=== PATIENT | female | born 1980 | race Caucasian/White ===

== ENCOUNTER 2024-02-02 09:46 | Inpatient (IN) | payer SELFPAY ==
[2024-02-02] VITALS (94 sets, daily range): BP systolic 91–162; BP diastolic 55–83; PULSE 57–144; RESP 12–20; TEMP 36.6–37.3; O2SAT 79–100; BMI 21.9
--- NOTE | 2024-02-02 10:15 | PC.PHAR ---
Pt states Dicyclomine 20 mg is on hold right now, left Gabapentin 300mg at home, takes Thyroid 15mg+90mg nl=801ib total, and is on Suboxone 8-2 last fill 10/13/23.
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
[2024-02-02 11:20] LABS: Basophils % 0.4 %; Eosinophils # 0.1 10^3/uL (0.0-0.8); Eosinophils % 0.7 %; Hematocrit 40.7 % (36-47); Lymphocytes # 2.9 10^3/uL (0.8-4.8); Lymphocytes % 32.4 %; Mean Corpuscular HGB Conc 32.2 g/dL (30-55); Mean Corpuscular Hemoglobin 30.2 pg (27-33); Mean Corpuscular Volume 93.8 fl (85-98); Mean Platelet Volume 9.8 fL (7.4-10.4); Monocytes # 0.6 10^3/uL (0.2-0.9); Monocytes % 6.5 %; Neutrophils # 5.32 10^3/uL (1.8-7.7); Neutrophils % 59.8 %; Nucleated Red Blood Cells % 0 %; Platelet Count 240 10^3/cmm (157-399); Red Blood Count 4.34 10^6/uL (3.85-5.65); Red Cell Distribution Width 12.8 % (12.1-15.1)
[2024-02-02 11:39] LABS: Alanine Aminotransferase 9 U/L (0-33); Albumin Level 4.7 g/dL (3.5-5.2); Alkaline Phosphatase 47 U/L (35-105); Anion Gap 15.7 (5-19); Aspartate Amino Transferase 22 U/L (0-32); Blood Urea Nitrogen 11 mg/dL (6-20); Calcium 9.7 mg/dL (8.5-10.5); Carbon Dioxide 23 mmol/L (22-29); Chloride 99 mmol/L (98-107); Creatinine Clr Calc Pharmacy 86.4185; Globulin 2.8 g/dL (1.3-4.6); Glomerular Filtration Rate 90.5 mL/min (90-130); Glucose 103 mg/dL (65-115); Osmolality Calculated 278 mOsm/kg (285-295); Potassium 3.7 mmol/L (3.5-5.1); Sodium 134 mmol/L (136-145); Total Bilirubin 0.3 mg/dL (0.15-1.2); Total Protein 7.5 g/dL (6.6-8.7)
--- NOTE | 2024-02-02 11:42 | PC.NURSE ---
BELONGINGS INVENTORIED WITH YOHANNES RICHARD AND RUPERT INTERIANO.
[2024-02-02 11:48] LABS: Acetaminophen < 5.0 ug/mL (10-30); Salicylate < 0.3 mg/dL (3-10)
[2024-02-02 12:01] LABS: Urine Appearance Slightly Cloudy (CLEAR); Urine Color Red (Yellow)
[2024-02-02 12:02] LABS: Add Urine Microscopic? YES; UA Manual Slide Review YES; UA Slide Review UA Slide Review Perf
[2024-02-02 12:03] LABS: Amphetamines Screen Urine Negative (Negative); Barbiturates Screen Urine Negative (Negative); Benzodiazepines Screen Urine Negative (Negative); Cocaine Screen Urine Negative (Negative); Opiate Screen Urine Negative (Negative); PCP Screen Urine Negative (Negative); THC Screen Urine Positive (Negative)
--- NOTE | 2024-02-02 12:03 | PC.NURSE ---
96 hour holds read to patient. Nolan from security present during reading of rights. Patient upset that the hold is longer then 96 hours. This nurse explained the 96 hour hold process and weekends not counting due to the courts being closed. Patient is remained upset but verbalized understandings. Copy of rights given to patient.
[2024-02-02 12:07] LABS: Add Urine Culture? No; RBC Urine TOO NUMEROUS TO CNT /hpf (0-2); WBC Urine 0-4 /hpf (0-5)
[2024-02-02] MEDS: haloperidol inj 5 mg/mL INJ 1 mL IM ×2 (13:54→16:13)
[2024-02-02] MEDS: diphenhydrAMINE 50 mg/mL SDV 1mL IM (13:55)
[2024-02-02] MEDS: LORazepam 2 mg/mL INJ 1 mL IM ×2 (13:55→16:14)
--- NOTE | 2024-02-02 14:25 | PC.NURSE ---
Patient arrived to the unit from ED at 1325. Immediately, patient was agitated, yelling at LEATHA Alvarado as she attempted to explain admission paperwork. Patient making paranoid statements about the validity of the hospital paperwork. Patient demanding that staff get the fuck away from me! Patient was not willing to sign paperwork as this made her agitated. Patient was then taken to her room by IRENE Mccauley for admission assessment. Patient was yelling at Garrick, slamming the bathroom door. Patient said that Garrick is incompetent, that this hospital is the worse hospital and that she is not going to stay. Multiple staff attempted to verbally de-esculate patient, but patient continued to esculate. Security was called. After much effort from security Giovanni and Wander, IRENE Sullivan, IRENE Goetz RN and IRENE Gill it was decided to resort to chemical restraint. B52 medications were obtained. IRENE Goetz told patient about the medications she would be receiving.Patient was refusing to be given meds. Patient up and down in room with security. Security went hands on patient at 1350, holding patient on her arm joints. LEATHA Alvarado held down patient's right leg and IRENE Gill held down left leg around the joints. Patient tolerated the medications. IRENE Sullivan administered haldol and ativan into left deltoid, and Sofy BONILLA administered benadryl into right deltoid muscle. Patient made statements about the amount of shots she received. Patient thought that she received four shots. Staff informed patient that she is getting two shots because the medications cannot be mixed. Patient also made a statement about the medication appearing to be melting
[2024-02-02] MEDS: water for injection-sterile 10 ML (15:09)
[2024-02-02] MEDS: ziprasidone 20 mg/mL SDV IM (15:09)
--- NOTE | 2024-02-02 15:09 | PC.NURSE ---
Administered geodon 20mg Im to patient's right ventrogluteal. No distress. Patient tolerated well.
--- NOTE | 2024-02-02 15:20 | W.PM.BREST ---
Face to Face: Restrn/Seclusion Events leading up to initiation: Verbalizing threat to self or others, Demonstrating self-destructive behavior (cutting, hitting cortes etc.) and Combative/Striking out at staff or others Evaluation of patient's immediate situation: Signs of physical distress and Signs of psychological distress Patient reaction since intervention applied: Continued attempts/displays harmful behavior Recent labs reviewed: Yes Review of medications: Yes Patient's current medical/behavioral condition: New concerns (describe) (Unclear whether current medications and interventions will suffice to help her de-escalate. Will consider medical consult for a more controlled management of her delirious behavior.) Need for restraint or seclusion is: Continued Attending notified: Attending completed assessment
--- NOTE | 2024-02-02 15:29 | PC.NURSE ---
Patient was initially placed in seclusion. Patient was observed by staff punching the corets. Dr. Rg was notified. Dr. Rg gave order to put patient in restraints. Jenny Sullivan Taylor, Jake B., Brittanie Garcia aided patient to the restraint room without incident. Patient was placed in restraints and it was checked that two fingers width between restraints and patient skin. Patient provided with water and a cool wet wash cloth for her head. Patient continues to fight at restraints. Patient talking delusional, saying such things as I want you to put that song on me and then opened her mouth wide for placement of the song. Patient's VS checked. Dr. Rg present, security present. engraving supervisor aware. Both manager eligibility's aware and present
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
[2024-02-02] MEDS: benztropine 1 mg/mL SDV 2 mL 2 MG IM (15:57)
--- NOTE | 2024-02-02 16:14 | PC.NURSE ---
IRENE Skaggs administered ativan 2mg and haldol 5mg IM into patient's left ventrogluteal muscle. No distress observed. Patient continues to be in presence of staff.
--- NOTE | 2024-02-02 16:24 | CTR_ITS ---
PROCEDURE INFORMATION: Exam: CT Head Without And With Contrast Exam date and time: 02/02/2024 6:47 PM Age: 43 years old Clinical indication: Altered mental status/memory loss; Other: Hallucinations; Additional info: AMS, hallucination TECHNIQUE: Imaging protocol: Computed tomography of the head without and with contrast. Radiation optimization: All CT scans at this facility use at least one of these dose optimization techniques: automated exposure control; mA and/or kV adjustment per patient size (includes targeted exams where dose is matched to clinical indication); or iterative reconstruction. Contrast material: OMNI 350; Contrast volume: 100 ml; Contrast route: INTRAVENOUS (IV); COMPARISON: No relevant prior studies available. RADIATION DOSE METRICS: Total DLP (mGy-cm): 1947.96 FINDINGS: Brain: Right basal ganglia chronic lacunar infarct. Mild diffuse white matter disease likely reflecting chronic microvascular ischemic changes. Cerebral ventricles: No ventriculomegaly. Paranasal sinuses: Visualized sinuses are unremarkable. No fluid levels. Mastoid air cells: Visualized mastoid air cells are well aerated. Bones: Unremarkable. No acute fracture. Soft tissues: Unremarkable. CT/CT head wo/w con [id number] IMPRESSION: 1. Negative for intracranial hemorrhage, mass effect or abnormal contrast enhancement. 2. Right basal ganglia chronic lacunar infarct. 3. Mild diffuse white matter disease likely reflecting chronic microvascular ischemic changes.
--- NOTE | 2024-02-02 16:42 | PC.NURSE ---
Staff unable to obtain blood pressure, either with the machine or manually because patient unable to sit still.
--- NOTE | 2024-02-02 16:45 | ANES.PROC ---
Anesthesia Procedures Procedure/Date: 02/03/24 Intubation: Time Out Performed: Yes Consent: requested by attending/covering physician Sedative (amount): etomidate Paralytic (amount): succinylcholine Laryngoscope: fiber optic video scope ET Tube Size: 8 ET Tube Uncuffed: Yes Tube Secured Depth (cm): 23 Tube Secured Location: lips Tube Placement Confirmation: visualized tube passing through cords, equal breath sounds bilaterally and color change noted Patient Tolerated Procedure: well Intubation Complications: none
--- NOTE | 2024-02-02 17:00 | PC.NURSE ---
This nurse arrived to the unit at 1520 and at that time staff was in the restraint room with patient. This nurse went to restraint room to assist staff. When this nurse observed patient she appeared to have changed since last seeing her in the ER at 1200. This nurse read patient her 96 hour hold rights at 1200 in the ER and patient was oriented and questioning her 96 hour hold appropriately. IRENE Sullivan then stated to this nurse patient was placed in seclusion at 1509 and patient was observed to being exhibiting self harm behaviors. She was then placed in the restraint bed at [address] Rg directions Dr. Rg was at bedside and completed the one hour face to face at 1520. While this nurse was assisting staff, the patient continued to exhibit behaviors of self harm, she was given IM injections of ATIVAN 2 mg and Haldol 5 mg by this nurse at 1552 due to patient continually attempting to get out of restraint bed and self harm behaviors. Patient was thrashing in bed continuously, patient noted to be very confused incoherently verbalizing word salad. Cogintin was then given by IRENE Goetz at 1557 for patients continuance of self harm behaviors. After IM injections, patient continued to fight restraints, thrashing in bed, and incoherent. This nurse along with Laurie BONILLA and Nolan from [facility] helped maintain patients safety and provided continuous observation. Dr. Rg was notified and Dr. Rg consulted Dr. Alexander. Dr. Alexander called this nurse and instructed to transfer patient to ICU on restraint bed to maintain patient safety. This nurse, along with Nolan and Giovanni from [facility], Jenny C.N.A, Brittanie C.N.A safely transferred patient to ICU [address] Alexander was in ICU waiting for patient. He consulted Dr. Caldera anesthesiologist for intubation due to patient receiving high doses of multiple antipsychotics and benzodiazepines in the neuropsych unit. Dr. Alexander stated Given concerns for acute psychosis with patient inflicting self-harm, not being able to managed with multiple antipsychotics and benzodiazepines with concerns of possible seizures with multiple antipsychotics requirement which could lead to respiratory distress for now we need to intubate the patient Dr. Reyes at bedside and intubated patient. Patient is now intubated and sedated in ICU. IRENE Arrieta assumed patient care at this time.
--- NOTE | 2024-02-02 17:06 | PC.NURSE ---
Upon admission to the unit, no allergies were documented in patient's chart. this nurse asked patient about any allergies. Patient told this nurse that she is allergic to anesthetics , bee stings, ketamine, trazodone, and codeine.
[2024-02-02] MEDS: succinylcholine 20 mg/mL SDV 10mL IVP (17:18)
--- NOTE | 2024-02-02 17:19 | XRR_ITS ---
PROCEDURE INFORMATION: Exam: XR Chest Exam date and time: 02/02/2024 5:19 PM Age: 43 years old Clinical indication: Device placement; Other: Og; Additional info: Intubate og TECHNIQUE: Imaging protocol: Radiologic exam of the chest. Views: 1 view. COMPARISON: No relevant prior studies available. FINDINGS: Tubes, catheters and devices: There is an enteric tube with the tip in the body of the stomach. There is an endotracheal tube with the tip 3.5 cm above the maru. Lungs: Lungs are clear bilaterally. Pleural spaces: No pleural effusion. No pneumothorax. Heart/Mediastinum: The cardiac silhouette is mildly enlarged. Mediastinal contours are unremarkable. Bones/joints: Unremarkable for age. XR/XR chest 1V portable [id number] IMPRESSION: 1. No acute cardiopulmonary process. 2. There is an enteric tube with the tip in the body of the stomach. 3. Incidental/nonacute findings are listed in the report.
[2024-02-02] MEDS: etomidate 2 mg/mL INJ SDV 10 mL 20 MG IVP (17:20)
[2024-02-02] MEDS: midazolam hcl 100 MG/100 ML BAG IV (17:21)
[2024-02-02] MEDS: fentaNYL 1,000 MCG/100 ML BAG 2.5 MCG IV (17:21)
--- NOTE | 2024-02-02 17:21 | PC.NURSE ---
THIS MOP MAN ARRIVED ON THE UNIT AT 1340 AND AT THAT TIME STAFF WAS ATTEMPTING TO GET PT DRESSED OUT INTO GREEN NPU SCRUBS. PT WAS YELLING AND SCREAMING AT STAFF DURING THIS PROCESS. PT WAS DRESSED OUT BY THIS MOP MAN AND LEATHA KAPOOR AROUND 1342. PT CONTINUED TO YELL AND SCREAM AT STAFF ALONG WITH THROWING HER DIRTY CLOTHING ITEMS AT THIS MOP MAN. PT WAS GIVEN HALDOL 5MG, ATIVAN 2MG AND BENADRYL 50MG BY THIS MOP MAN AND PHILLIP BONILLA AT 1350 AND A MANUAL HOLD WAS REQUIRED DURING MEDICATION ADMINISTRATION. PT TOLERATED INJECTIONS WELL AND WAS LEFT IN HER ROOM BY STAFF AND OFFERED FOOD AND DRINKS. WHILE PT WAS IN HER ROOM PT WAS TALKING TO HERSELF AND HAVING FULL CONVERSATIONS. PT WAS YELLING REQUESTING STAFF TO TURN OFF THE TV IN PT ROOM WHERE THE CLOSET IS LOCATED. PT WAS GOING INTO THE HALLWAYS AND PEEKING AROUND CORNERS APPEARING TO BE PARANOID WHILE HAVING CONVERSATIONS WITH HERSELF. PT ATTEMPTED TO GO INTO MULTIPLE PATIENT ROOMS AND AT 1425 BROUGHT ALL OF HER PAPERWORK INTO ANOTHER ROOM, THIS MOP MAN APPROACHED AND REDIRECTED HER BACK TO HER ROOM. PT WAS VERY DELUSIONAL AT THAT TIME. tHIS MOP MAN REMAINED WITH PATIENT DURING THE EVENTS. PT TOOK HER CLOTHING OFF MULTIPLE TIMES, SPILLED DRINKS ON HERSELF REQUIRING MULTIPLE PAIRS OF SCRUBS, GETTING ON THE TABLES IN THE DAY ROOM AND PT WAS ATTEMPTING TO GO IN MULTIPLE DOORS. PT WAS MOVED FROM THE NORTH SIDE TO THE SOUTH SIDE IN ROOM 170 AT 1504. PT WAS GIVEN GEODON 20MG BY IRENE MONTGOMERY AT 1509. PT WAS THEN PLACED IN SECLUSION BY ORDER OF DR. CLAUDIA GARCIA AT 1511. THIS MOP MAN COMPLETED THE ONE HOUR FACE TO FACE AT 1512. WHILE PT WAS IN SECLUSION PT WAS DELUSIONAL ATTEMPTING TO ASSISTANT SIGNAL MAINTAINER ITEMS OFF THE FLOOR THAT WERE NOT THERE. PT THEN ASKED THIS MOP MAN FOR HER KEYS WHEN THIS MOP MAN TOLD HER SHE COULD NOT HAVE HER KEYS PT REACHED INSIDE HER PANTS, DOWN HER UNDERWEAR ATTEMPTING TO FIND A HOOD IN HER VAGINAL AREA. WHEN PT WAS UNABLE TO FIND A HOOD PT THEN LICKED HER MENSES BLOOD OFF OF HER FINGERS. PT THEN BEGAN PUNCHING THE SALCEDO AND DR. GARCIA WAS NOTIFIED. NEW ORDERS FROM DR. GARCIA WAS TO PLACE PT IN RESTRAINT BED. STAFF ENTERED THE SECLUSION ROOM AND AT THAT TIME PT HAD TAKEN HER SHIRT OFF AND IT HAD TO BE PLACED BACK ON HER. PT WAS ESCORTED TO THE RESTRAINT ROOM/BED AND PLACED IN RESTRAINTS AT 1518. DR. GARCIA COMPLETED THE ONE HOUR FACE TO FACE AT 1520. PT CONTINUED TO ATTEMPT TO GET OUT OF THE RESTRAINT BED AND WAS GIVEN AN ADDITIONAL INJECTION OF ATIVAN 2MG AND HALDOL 5MG BY IRENE RIOS AT 1552. COGINTIN WAS THEN GIVEN BY IRENE FISHER AT 1557. PT CONTINUED TO FIGHT RESTRAINTS AND WAS NOT ABLE TO BE RELEASED FROM THE RESTRAINT BED. DR. GARCIA WAS NOTIFIED AND DR. GARCIA THEN CONSULTED DR. MENSAH. ORDERS WERE GIVEN TO TRANSFER TO ICU. PT LEFT NPU 1632. WHILE PT WAS IN RESTRAINTS PT WAS OFFERED FLUIDS MULTIPLE TIMES AND COLD RAGS WERE PLACED ON PTS HEAD AND NECK. VITALS WERE ATTEMPTED TO BE TAKEN AT 1525 AND 1547 BUT PT WAS THRASHING ON THE BED TO MUCH TO OBTAIN. IT TOOK MULTIPLE STAFF MEMBERS TO OBTAIN PTS SAFETY DURING THESE EVENTS INCLUDING THE FOLLOWING PEOPLE: IRENE ALBARADO RN JERICA CODY, IRENE GARCIA, IRENE VÁZQUEZ, DOUBLE CUTTER JEANA POON, LEATHA PINTO, SECURITY JET RICHTER, SECURITY IRENE GARCIA, PSA
--- NOTE | 2024-02-02 17:22 | PM.CONSULT ---
Providers/Reason For Consult Consulting Physician/Specialty*: Dr. Alexander/internal medicine Reason for Consult*: Extreme agitation not controlled by medication, psychosis Attending Physician: Delgado Rg MD History of Present Illness History of Present Illness Mehdi Mckeon is a 43 year old female with past medical history of hypothyroidism, mental disorder around 20 years ago who was brought into the ER today and was later discharged to Neuropsych Unit in setting of acute psychosis. As per the review of chart, history taken over the phone through patient's she has been having bizarre behavior with auditory and visual hallucinations over the last 4 days. Patient has not slept since then. As per the she has been paranoid lately and thinking people are out to get her. She will internalize any aggression she would watch on TV on to herself. Denies any changes in medications though does state that they had recently moved to [place] from [place] and she has not taken her home doses of gabapentin and levothyroxine over last to 2-1/2 weeks. On review of chart it seems patient was awake and was able to have conversation with the ER physician but continued to have hallucinations in the ER hence was admitted. She was placed on 96 hours in the ER. While being in the Neuropsych Unit patient continued to have worsening psychosis and mentation leading to physical aggression for which she overall received 10 mg of IM Haldol, 4 mg of IM Ativan, 20 of Geodon and 50 of Benadryl overall over 3 hours. Patient continued to be physically aggressive with episodes of punching the wall and required multiple people including security personnel, nursing staff and washhouse hand given concerns for self harm. As per nursing staff they were concerned of a possible seizure while in Neuropsych Unit with arching of her back and rolling of her eyes though patient did not have any bowel or bladder accidents or frothing from the mouth. On examination in the ICU while being in bed patient was awake not alert, thrashing in bed trying to climb out of bed, having cold sweats with pupils slightly pinpoint bilaterally with sluggish reaction to light. Not able to participate in interview. Found to be tachycardic with Hr of around 120-130 bpm. Does not have an IV access. Due to concerns for aggression not controlled by multiple medications, patient not participating in undergoing necessary investigations which could be potentialy life-saving decision was made for mechanical ventilation after confirming with her spouse over the phone. Review of Systems General: Reports: ROS unobtainable due to mental status Medications/Allergies Home Medications Medication Instructions Recorded Confirmed Last Taken Type buprenorphine 8 mg-naloxone 2 mg 1 film buccal BID 02/02/24 02/02/24 02/01/24 History sublingual film dicyclomine 20 mg tablet 20 mg PO TID 02/02/24 02/02/24 Unknown History gabapentin 300 mg capsule See Rx Instructions .Route .COMPLEX 02/02/24 02/02/24 Unknown History thyroid (pork) 15 mg tablet (DIAGNOSTIC IMAGING MANAGER 15 mg PO DAILY 02/02/24 02/02/24 02/01/24 History Thyroid) thyroid (pork) 90 mg tablet (DIAGNOSTIC IMAGING MANAGER 90 mg PO DAILY 02/02/24 02/02/24 02/01/24 History Thyroid) Allergies Allergy/AdvReac Type Severity Reaction Status Date / Time Iodinated Contrast Media Allergy Mild ADR-Abdominal Verified 02/02/24 17:20 Pain Anesthetics - Amide Type - Allergy Unknown Verified 02/02/24 13:52 Select A bee venom protein (honey bee) Allergy Unknown Verified 02/02/24 13:43 codeine Allergy Unknown Verified 02/02/24 13:52 ketamine Allergy Unknown Verified 02/02/24 13:53 trazodone Allergy Unknown Verified 02/02/24 17:05 Current Medications Generic Name Dose Route Start Last Admin Trade Name Jean Pierreq PRN Reason Stop Dose Admin Fentanyl 1,000 mcg in 100 mls @ 0 mls/hr 02/02/24 16:45 02/02/24 17:21 Sublimaze IV 25 mcg/hr .Q0M NELY 2.5 mls/hr Administration Protocol Per Protocol Midazolam HCl 100 mg in 100 mls @ 0 mls/hr 02/02/24 16:45 02/02/24 17:21 Versed IV 1 mg/hr .Q0M NELY 1 mls/hr Administration Protocol Per Protocol PFSH Acute PFSH: Medical History (Updated 02/02/24 @ 23:36 by Delgado Rg MD) Hypothyroidism Surgical History (Updated 02/02/24 @ 18:21 by Goldy Alexander MD) No pertinent past surgical history Social History (Updated 02/02/24 @ 18:22 by Goldy lAexander MD) Smoking and tobacco/nicotine status: unknown if used tobacco/nicotine Alcohol intake: unknown Substance/Drug Use: never Household members: spouse Housing: House Marital status: Vitals/I&O/Wt Last Vital Signs Temp 98.6 F 02/02/24 14:00 Pulse 83 02/02/24 16:30 Resp 20 H 02/02/24 16:30 BP 162/67 02/02/24 14:00 Pulse Ox 97 02/02/24 16:30 O2 Del Method Room Air 02/02/24 16:30 Weight last 48 hrs Weight 56.245 kg Physical Exam Narrative: General: Altered, awake, GCS: E4 M5 V1, dry skin HEENT: PERRLA, pupils bilaterally equal and sluggishly reactive, pinpoint Chest: Normal vesicular breath sounds, no added sounds, equal good air entry bilaterally CVS: S1-S2 regular, no murmurs, tachycardia, no gallops, no rubs Abdomen: Soft, nontender, no organomegaly, bowel sounds present Neuro: No focal deficits, no facial deformity, moving all limbs, thrashing in bed Data 02/03/24 04:47 02/03/24 04:47 A&P Assessment and plan (1) Acute psychosis: Unknown cause. Associated with some visual and auditory hallucination worsening over last 4 days. Concerns for inflicting self-harm in the Neuropsych Unit with punching of the cortes. Has missed her chronic home medications including gabapentin levothyroxine over last 2 weeks as per patient's . Concerns for possible seizure with arching of the back and rolling of the eyes while in the Neuropsych Unit. Though no past history. No bowel or bladder accidents. Cannot rule out in setting of withdrawal from gabapentin. 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 Patient currently in 4 point restraints, thrashing in bed. Received high doses of multiple antipsychotic and benzodiazepines in the Neuropsych Unit as above. Unable to get imaging of head because of psychosis. Given concerns for acute psychosis with patient inflicting self-harm, not being able to managed with multiple antipsychotics and benzodiazepines with concerns of possible seizures with multiple antipsychotics requirement which could lead to respiratory distress for now we will go ahead and intubate the patient so necessary investigation can be done at the earliest. Confirm with patient's spouse Giovanni regarding the same and he is agreeable. Maintain saturation over 90% mean artery pressure over 65. CT head with and without contrast to rule out mass, bleed, stroke. History of allergic reaction to contrast in the past. Not sure of the allergies.. Premedicate with hydrocortisone and Benadryl. Check sputum culture, MRSA swab, respiratory viral panel, procalcitonin, prolactin, beta-hCG, alcohol level, Tylenol level, salicylate level, repeat urine drug screen. Check TSH levels depending on TSH level will plan for free T3 and free T4 along with cortisol level. If abnormal will start on IV levothyroxine with or without hydrocortisone. If not abnormal and will start on oral levothyroxine 75 mcg daily. If levels are abnormal cannot rule out Kevin's encephalopathy versus myxedema psychosis. If abnormal will plan for KAIT panel, thyroglobulin antibodies. Check ESR, CRP. Will plan to sedate with fentanyl, Versed and Precedex. Plan to wean sedation daily. If patient is able to wake up appropriately will plan to extubate at the earliest on low-dose Precedex if able to tolerate. Plan for lumbar puncture in AM. Check for CSF studies along with oligoclonal bands. For now check urine bacterial antigen, blood culture. Start on IV ceftriaxone 2 g daily. (2) Hypothyroidism: Not taken her home dose of 105 mg of generic thyroid medication over last 2 weeks. Check TSH levels depending on TSH level will plan for free T3 and free T4 along with cortisol level. If abnormal will start on IV levothyroxine with or without hydrocortisone. If not abnormal and will start on oral levothyroxine 75 mcg daily. If levels are abnormal cannot rule out Kevin's encephalopathy (3) Hallucination: As #1 Plan Patient's care discussed in detail with patient's over the phone. All the questions were answered. Currently on 96-hour hold. N.p.o. Full code Protonix OPD prophylaxis Heparin 5000 Q8 hourly for DVT prophylaxis. Care discussed in detail with patient and spouse over the phone, nursing staff at bedside, Dr. Rg over the phone. Thank you for involving us in care of Ms. Mckeon. Please call with any concerns. Consult Attestations Medical Necessity Statement: Requires further hospitalization for management of acute psychosis with hallucination with concerns for possible seizure activity Critical Care Time: The high probability of a clinically significant, sudden or life threatening deterioration of the patient's [neurological, psychiatric, pulmonary] system(s) required my full and direct attention, intervention and personal management. The critical care time is as shown. This time is in addition to time spent performing any reported procedures but includes the following: [x] Data and vital sign review and interpretation [x] Patient assessment, examination and intervention [x] Documentation [x] Medication orders and management Critical Care Time (min): 90 Coding Level of Care Code Critical Care >/= 30 minutes Critical care time (in minutes): 90 The high probability of a clinically significant, sudden or life threatening deterioration, as referenced in this documentation, required my full and direct attention, intervention and personal management. The critical care time shown is in addition to time spent performing any reported separately billable procedures and includes the following: [x] Data and vital sign review and interpretation [x] Patient assessment, examination and intervention [x] Medication orders and management [x] Patient/Family updates as able [x] Care Coordination and Documentation. Diagnoses Acute psychosis F23 Hypothyroidism E03.9 Hallucination R44.3
--- NOTE | 2024-02-02 17:34 | PC.NURSE ---
Addendum entered by Sofy Alejandro RN 02/02/24 17:40: This information was relayed to Dr. Rg at approximately 1734. No new orders at this time. Original Note: This RN spoke with patient's spouse, Giovanni Delcid , on the phone at 1720. He stated he was only aware of the patient having an episode like this over 20 years ago before they were . He says they came from [place] to [place] for the holidays. He states patient is on gabapentin, levothyroxine, and suboxone which she receives from [facility] in [place], [place]. He confirmed that the patient has been clean for 7 years and that he is not aware of her utilizing any illegal substances. He does say she has a medical marijuana card that she uses. Patient's PCP is also Марина Ledezma at [facility] in [place], [place]. At 1730 this RN called [facility] in [place], [place]. They confirmed that the patient picked up the following on 10/13/23: gabapentin 300mg-1 capsule at bedtime and 1 capsule three times daily as needed generating station mechanic thyroid 15 mg- 1 tablet daily on an empty stomach generating station mechanic thyroid 90mg- 1 tablet daily on an empty stomach, to be taken with the 15mg tablet suboxone 8-2mg- 1 film twice daily
[2024-02-02] MEDS: pantoprazole 40 mg SDV IVP (17:44)
[2024-02-02] MEDS: sodium chloride 0.9% 1,000 ML 75 ML IV (17:44)
[2024-02-02] MEDS: divalproex Sprinkles 125 mg Capsule PO (17:44)
[2024-02-02] MEDS: cefTRIAXone 1,000 mg SDV 2000 MG IVP (17:44)
[2024-02-02] MEDS: heparin 5,000 unit/mL INJ 1 mL 5000 UNIT SUBCUT (17:44)
[2024-02-02 18:00] LABS: Arterial Blood Gas Hematocrit 36.7 % (37-47); Base Excess ABG 2.2 mmol/L (-2.0-2.0); Blood Gas Allen Test Pos; Blood Gas Sample Site Radial, left; Blood Gas Sample Type Arterial; Carboxyhemoglobin 0.7 %THgb (0.4-20.1); HGB O2 Sat 98.4 % (95-100); Ionized Calcium Level - ABG 1.2 mmol/L (1.1-1.4); Methemoglobin 1.1 % (0.4-1.5); Oxygen Saturation ABG > 99.1; Potassium Level - ABG 3.1 mmol/L (3.5-5.0)
--- NOTE | 2024-02-02 18:05 | PC.NURSE ---
This RN observed the patient in her room, walking aimlessly and talking to herself. Patient was picking things up off the ground that were not there and attempting to move the bed in her room. Patient also climbed on top of the dayroom table and had to be helped down by nursing staff. Patient was transferred to [facility] once a room was clean and began taking her top off in her room. Staff helped her place her top back on. She was then asked to lie down so staff could administer geodon. Patient initially ran to her bathroom and then ran straight back to the bed for unknown reasons and then complied with staff. After receiving the injection patient continued to wander aimlessly around her room and began attempting to open the doors to the seclusion and the restraint room and flipped the lights on and off. Throughout this time she appeared delusional, saying several words that were not related to one another. When a LUMBER KILN OPERATOR asked her if she had any dogs she replied, grandpa, zero, zero, three. When Dr. Rg ordered for her to be placed in seclusion this RN witnessed her taking off her top again in the seclusion room and what appeared to be an attempt to climb up the wall. Patient did not calm and Dr. Rg ordered for her to be placed in restraints. Patient continued to thrash around on the bed, make delusional statements, and would not comply with staff despite multiple attempts to redirect her. Staff did provide patient with liquids and cold compresses as she had begun to sweat profusely. Staff attempted to obtain her vitals, but blood pressure could not be obtained manually or automatically due to her thrashing about. After several attempts to calm the patient and redirect her Dr. Rg contacted Dr. Alexander, who agreed to consult and move her to ICU for the time being.
[2024-02-02 18:08] LABS: Blood Gas Operator Identificat GD; Blood Gas Tidal Volume 400; Oxygen Device VENT
[2024-02-02 18:09] LABS: Blood Gas Vent Mode VC-AC
[2024-02-02 18:11] LABS: Prolactin 23.91 ng/mL (4.8-23.3)
[2024-02-02 18:19] LABS: Procalcitonin 0.03 ng/mL (0-0.5); Vitamin B12 1146 pg/mL (232-1245)
--- NOTE | 2024-02-02 18:25 | PC.NURSE ---
Pt arrived on the unit and began yelling and screaming at staff stating Get the Fuck outta my room , [facility] is [facility], and I've been to alot of hospitals ! Security was called to the unit and all measures tried by all staff to help the pt calm down did not work. Pt was up in staffs faces yelling and screaming, while staff was trying to assess her body for wounds or other findings. Pt was very uncooperative during admission to the unit. Pt was given 2mgAtivan Im, 50mg Benadryl IM, 5mg Halodol. Pt then began to run up and down the halls going into other pt's rooms and taking her scrubs off resulting in pt being naked in her room. Staff assisted pt with putting clothing back on several times. Pt was talking to people that were not present in the room - Visually hallucinating. Pt was assigned a 1:1 sitter at this point.
[2024-02-02] MEDS: diphenhydrAMINE 50 mg/mL SDV 1mL IVP (18:30)
[2024-02-02] MEDS: hydrocortisone 100 mg/2 mL SDV 50 MG IVP (18:30)
[2024-02-02 18:36] LABS: Bilirubin Urine Negative (Negative); Blood Urine Negative (Negative); Glucose Urine UA Negative (Normal); Ketones Urine Negative (Negative); Leukocyte Esterase Urine Negative (Negative); Nitrate Urine Negative (Negative); Protein Urine Negative (Negative); Specific Gravity, Urine 1.004 (1.005-1.030); Urine Appearance Clear (CLEAR); Urine Color Yellow (Yellow); Urobilinogen Urine 0.2 mg/dL (Negative)
[2024-02-02 18:43] LABS: Add Urine Microscopic? YES; Bacteria Urine None Seen /hpf; Hyaline Casts Urine 2.46 /lpf; RBC Urine 0-2 /hpf (0-2); Squamous Epithelial Cell Urine 0-5 /hpf (0-5); WBC Urine 0-5 /hpf (0-5)
[2024-02-02 18:43] LABS: Iron 69 ug/dL (37-145); Percent Saturation 21.3 % (20-50); Total Iron Binding Capacity 323 mcg/dl; Unsaturated Iron Binding 254 ug/dL (112-347)
[2024-02-02 18:46] LABS: THC Screen Urine Positive (Negative)
[2024-02-02 18:47] LABS: Amphetamines Screen Urine Negative (Negative); Barbiturates Screen Urine Negative (Negative); Benzodiazepines Screen Urine Negative (Negative); Cocaine Screen Urine Negative (Negative); Opiate Screen Urine Negative (Negative); PCP Screen Urine Negative (Negative)
[2024-02-02] MEDS: iohexol 350 mg/mL 500 mL Btl (per mL) IV (19:05)
[2024-02-02 20:12] LABS: Salicylate 0.8 mg/dL (3-10)
[2024-02-02 20:17] LABS: Acetaminophen < 5.0 ug/mL (10-30); Alcohol Level < 10 mg/dL (0-10)
[2024-02-02 20:43] LABS: Estmated Average Glucose 108; Hemoglobin A1C 5.4 % (4.0-6.0)
[2024-02-02 20:47] LABS: Erythrocyte Sedimentation Rate < 1 mm/hr (0-15)
[2024-02-02 21:18] LABS: Free T4 Free Thyroxine 0.23 ng/dL (0.82-1.77); T3 Free 0.8 PG/ML (2.0-4.4)
[2024-02-02 21:39] LABS: Cortisol Random 95.92 ug/dL (2.47-19.5)
[2024-02-02 21:39] LABS: MRSA PCR OZH (swab) NOT DETECTED (Not Detecte)
[2024-02-02] MEDS: gabapentin 300 mg Capsule NG-TUBE (21:44)
[2024-02-02] MEDS: divalproex Sprinkles 125 mg Capsule OG-TUBE (21:44)
[2024-02-02] MEDS: levothyroxine 100 mcg SDV IVP (21:44)
[2024-02-02 22:14] LABS: Adenovirus Not Detected (NOT DETECT); Chlamydia Pneumoniae Not Detected (NOT DETECT); Coronavirus 229E,HKU1,NL63,OC4 Not Detected (NOT DETECT); Human Metapneumovirus Not Detected (NOT DETECT); Human Rhinovirus/Enterovirus Not Detected (NOT DETECT); Influenza A Not Detected (NOT DETECT); Influenza A H1 Not Detected (NOT DETECT); Influenza A H1-2009 Not Detected (NOT DETECT); Influenza A H3 Not Detected (NOT DETECT); Influenza B Not Detected (NOT DETECT); Mycoplasma Pneumoniae Not Detected (NOT DETECT); Parainfluenza Virus Type 1 Not Detected (NOT DETECT); Parainfluenza Virus Type 2 Not Detected (NOT DETECT); Parainfluenza Virus Type 3 Not Detected (NOT DETECT); Parainfluenza Virus Type 4 Not Detected (NOT DETECT); Respiratory Syncytial Virus A Not Detected (NOT DETECT); Respiratory Syncytial Virus B Not Detected (NOT DETECT); SARS-COV-2 Not Detected (NOT DETECT)
[2024-02-02] MEDS: propofol 1,000 MG/100 ML INJ 1.69 MG IV (22:15)
--- NOTE | 2024-02-02 23:16 | PC.NURSE ---
Manual Hold This RN was entering unit at approximately 2204, MS SQL DEVELOPER at pt bedside was yelling for help. Pt was sitting up in bed, thrashing about. Pt hands were flailing despite being in soft restraints, pt head was jerking side to side in attempt to remove breathing tube. Pt was placed in manual hold at approximately 2205, pt then began kicking her legs and continuously trying to thrash in bed. Additional staff arrived to help support manual hold until pt calmed and sedative gtt medications were titrated up. Many attempts were made verbally to deescalate pt behavior. Pt would open her eyes and look in the direction of the person talking but would not follow commands, continuously trying to extubate herself. Security arrived at approximately 2210 to help keep pt in bed with lines/tubes attached. Respiratory arrived to check ET Tube, and help support airway during event. Additional RN notified physician of sudden status change and need for manual hold. Orders to start propofol gtt given and medication started at approximately at 2217. Manual hold of pt lasted from 220 to 224 but was intermittent as pt would calm momentarily, hold was lessened or released, then pt would escalate without warning back into thrashing and trying to extubate self. Physician notified of event in entirety, VS and amount of sedative medication infusing at time of hold release. Physician gave order for levophed to support blood pressure in the event sedation need be increased.
[2024-02-03] VITALS (276 sets, daily range): BP systolic 81–152; BP diastolic 37–106; PULSE 33–160; RESP 12–17; TEMP 36.1–37.1; O2SAT 87–100
[2024-02-03] MEDS: fentaNYL 1,000 MCG/100 ML BAG 15 MCG IV (00:28)
[2024-02-03] MEDS: heparin 5,000 unit/mL INJ 1 mL 5000 UNIT SUBCUT ×3 (01:51→17:16)
[2024-02-03] MEDS: midazolam hcl 100 MG/100 ML BAG 6 MG IV (01:51)
[2024-02-03] MEDS: norepinephrine 4 MG/250 ML BAG 7.5 MG IV (02:09)
--- NOTE | 2024-02-03 02:41 | ECG_ITS ---
[facility] Date: 2024-02-03 Pat Name: Mehdi Mckeon Department: Room: [facility] Gender: Female Assistant Education Director: : 1980 Requested By: Parminder Jauregui Order Number: [id number] Carla MD: Guille Yuen M.D. Measurements Intervals [place] Rate: 50 P: 69 ME: 176 QRS: 69 QRSD: 100 T: 65 QT: 495 QTc: 456 Interpretive Statements SINUS BRADYCARDIA POSSIBLE RIGHT VENTRICULAR CONDUCTION DELAY [RSR (QR) IN V1/V2] No previous ECG available for comparison Electronically Signed On 02-05-2024 22:05:01 VISITOR SERVICES ASSISTANT by Guille Yuen M.D. [email or web address]
[2024-02-03] MEDS: DOPamine drip 400 MG/250 ML PREMIX 10.55 MG IV (04:03)
[2024-02-03] MEDS: hydrocortisone 100 mg/2 mL SDV IVP (04:04)
--- NOTE | 2024-02-03 04:17 | W.PM.EVENTAC ---
Event Note Event Note: Patient was not sedated enough on Versed and fentanyl, decision was made to use propofol Patient had to be put on restraints because she was trying to reach out to her endotracheal tube Patient developed bradycardia, EKG showed sinus rhythm, her map was decreasing hence decision was made to put her on dopamine, MAP improved and dopamine 7.5, patient is sedated not fighting her ventilator EKG does show QTc around 495, requested mag level
--- NOTE | 2024-02-03 04:22 | USCV_ITS ---
Princessseth Mehdi Age: 43 Gender: F : 1980 Exam Date: 02/03/2024 11:36 Ordering Phys: Parminder Jauregui MD Technologist: Exam Location: [facility] Indication: bradia BP: 112 / 53 HR: Rhythm: Sinus Technical Quality: Very technically difficult study MEASUREMENTS (Male / Female) Normal Values FINDINGS Left Ventricle Right Ventricle Right Atrium Left Atrium Mitral Valve Aortic Valve Tricuspid Valve Pulmonic Valve Pericardium Aorta IVC CONCLUSIONS Technically very limited quality echocardiogram because of limited ultrasonic windows. Grossly LV systolic function appears to be normal Valvular stuctures can not be assessed with limited visualization. Guille Yuen MD (Electronically Signed) Final Date: 03 February 2024 17:51 S
[2024-02-03 04:37] LABS: ABG PCO2 37.8 mmHg (35-45); ABG PH Result 7.39 (7.35-7.45); Alveolar-Arterial Oxygen Gradi 7.4 mmHg (5-10); Arterial Blood Gas Hematocrit 36.8 % (37-47); Base Excess ABG -1.7 mmol/L (-2.0-2.0); Blood Gas Allen Test Pos; Blood Gas Operator Identificat JDB; Blood Gas Sample Site Radial, right; Blood Gas Sample Type Arterial; Carboxyhemoglobin 0.7 %THgb (0.4-20.1); Ionized Calcium Level - ABG 1.2 mmol/L (1.1-1.4); Methemoglobin 1.1 % (0.4-1.5); Oxygen Device VENT; Oxygen Saturation ABG 98.7; PO2 FiO2 Ratio Arterial Blood 363; Potassium Level - ABG 3.4 mmol/L (3.5-5.0)
[2024-02-03 05:03] LABS: Basophils % 0.1 %; Eosinophils % 0.1 %; Hematocrit 35.8 % (36-47); Lymphocytes # 2.1 10^3/uL (0.8-4.8); Lymphocytes % 19.6 %; Mean Corpuscular Volume 91.1 fl (85-98); Mean Platelet Volume 10.8 fL (7.4-10.4); Monocytes # 0.7 10^3/uL (0.2-0.9); Monocytes % 6.6 %; Neutrophils # 7.69 10^3/uL (1.8-7.7); Neutrophils % 73.3 %; Nucleated Red Blood Cells % 0 %; Platelet Count 225 10^3/cmm (157-399); Red Blood Count 3.93 10^6/uL (3.85-5.65); Red Cell Distribution Width 13.1 % (12.1-15.1); White Blood Count 10.49 10^3/uL (3.29-11.43)
[2024-02-03] MEDS: sodium chloride 0.9% 1,000 ML 75 ML IV ×2 (05:09→18:26)
[2024-02-03 05:29] LABS: Alanine Aminotransferase 18 U/L (0-33); Albumin Level 4.1 g/dL (3.5-5.2); Alkaline Phosphatase 43 U/L (35-105); Aspartate Amino Transferase 70 U/L (0-32); Blood Urea Nitrogen 9 mg/dL (6-20); Calcium 8.8 mg/dL (8.5-10.5); Carbon Dioxide 21 mmol/L (22-29); Chloride 105 mmol/L (98-107); Creatinine Clr Calc Pharmacy 75.6162; Globulin 2.2 g/dL (1.3-4.6); Glomerular Filtration Rate 77.6 mL/min (90-130); Glucose 117 mg/dL (65-115); Osmolality Calculated 286 mOsm/kg (285-295); Sodium 138 mmol/L (136-145); Total Bilirubin 0.4 mg/dL (0.15-1.2); Total Protein 6.3 g/dL (6.6-8.7)
[2024-02-03 05:30] LABS: Chol HDL Ratio 4.06 mg/dL (0.0-4.40); Cholesterol 219 mg/dL (0-200); HDL Cholesterol 54 mg/dL (60-100); LDL Cholesterol Calculated 151 mg/dL (50-129); Magnesium 2.1 mg/dL (1.7-2.3); Triglycerides 69 mg/dL (0-150); VLDL Cholestrol Calculation 14 mg/dL (0-30)
[2024-02-03 05:31] LABS: Phosphorus 3.7 mg/dL (2.5-4.5)
[2024-02-03 05:38] LABS: Anion Gap 15.7 (5-19); Potassium 3.7 mmol/L (3.5-5.1)
[2024-02-03] MEDS: fentaNYL 1,000 MCG/100 ML BAG 20 MCG IV ×4 (05:47→23:26)
[2024-02-03 05:55] LABS: Folate Level 13.8 ng/mL (4.8-37.3)
--- NOTE | 2024-02-03 06:19 | PC.NURSE ---
At approx 0215 pt was having episodes of bradycardia (intermittent heart rate in high 40's) and hypotensive. Sedation reduced, bradycardia and hypotension worsened, levophed started. Contacted Dr. Jauregui and made aware as heart rate remained in mid 40's for more prolonged periods, new order received for Dopamine drip. Pt began to arouse and began pulling on restraints in attempts to self extubate as sedation was weaned, vital signs improved but patient compliance worsened. Sedation adjusted and heart rate began to drop into 40's again. Levophed stopped and dopamine started, heart rate improved for short time then returned to 40's. Dr. Jauregui made aware, no new orders.
[2024-02-03] MEDS: propofol 1,000 MG/100 ML INJ 13.5 MG IV ×2 (06:35→11:50)
[2024-02-03] MEDS: levothyroxine 100 mcg SDV IVP (08:08)
[2024-02-03] MEDS: divalproex Sprinkles 125 mg Capsule OG-TUBE (08:08)
[2024-02-03] MEDS: gabapentin 300 mg Capsule NG-TUBE ×3 (08:10→20:54)
[2024-02-03] MEDS: LORazepam 2 mg/mL INJ 1 mL IVP ×3 (08:19→22:03)
[2024-02-03] MEDS: haloperidol inj 5 mg/mL INJ 1 mL IM (08:28)
--- NOTE | 2024-02-03 08:43 | PC.OT ---
OT EVALUATION ORDERS RECEIVED FOR GROUP ON NPU; HOWEVER, PATIENT HAS BEEN TRANSFERRED TO ICU. WILL AWAIT RETURN TO NPU TO ADDRESS OT EVALUATION FOR GROUPS.
--- NOTE | 2024-02-03 08:56 | PC.NURSE ---
Telephone orders to start reducing sedation per Dr. Chowdhury. Sedation titrated down per protocol. Patient began waking up, thrashing, attempting to extubate, kicking at staff members and attempting to remove monitoring equipment and IV lines. Multiple attempts to reorient and defuse the situation were made. Security was called to help nursing staff contain the situation and de escalate patient. Dr Chowdhury was then contacted multiple times for further orders. See medication record for drug administration.
--- NOTE | 2024-02-03 09:05 | W.PM.NPUPNS ---
Subjective NPU Subjective: Patient presented today intubated and unresponsive. Did observe her having her propofol decreased with immediate or near immediate agitation. Had a lengthy discussion with hospitalist about medication management as well as continued intubation with hopes of having her gain the benefit of the restarting of thyroid medications and her Neurontin with an understanding that there will likely still be problems needing possibly oversight in the psychiatric unit once she is extubated and alert. Mental Status Exam MSE Comments: This is a slender white female in hospital scrubs with limited grooming and eye contact. Absent dentition with some facial atrophy. No abnormal movements except for significant psychomotor agitation. Significant aimless behavior. Uncooperative with exam and moderate distress. Speech was nonexistent today as she was intubated Mood not described, affect agitated and confused. Thought process not evaluated and remainder of examination not performed given her being intubated and not alert. Vitals/I&O/Wt Last Vital Signs Temp 98.6 F 02/03/24 09:03 Pulse 46 L 02/03/24 09:00 Resp 12 02/03/24 08:44 BP 84/43 02/03/24 09:00 Pulse Ox 97 02/03/24 09:00 O2 Del Method Room Air 02/02/24 16:30 FiO2 30 02/03/24 08:44 02/02/24 02/03/24 02/03/24 22:59 06:59 14:59 Intake Total 66.230 / 66.230 1097.896 / 1164.126 34.333 / 34.333 Output Total 1000 / 1000 Balance 66.230 / 66.230 97.896 / 164.126 34.333 / 34.333 Weight last 48 hrs Weight 56.245 kg Physical Exam Urinary Catheter Management: Yin: Cath Placed During This Visit: yes Reason for Continuing Indwelling Catheter: Accurate Measurement of Urinary Output in Critically Ill Patients Urinary Catheter Date of Insertion: 02/02/24 Urinary Catheter Time of Insertion: 17:31 Data NPU 02/03/24 04:47 02/03/24 04:47 Micro: Microbiology 02/02/24 19:29 Blood Culture - Preliminary Blood SPECIMEN COLLECTED 02/02/24 19:22 Blood Culture - Preliminary Blood SPECIMEN COLLECTED Microbiology 02/02/24 19:29 Blood Blood Culture - Preliminary SPECIMEN COLLECTED 02/02/24 19:22 Blood Blood Culture - Preliminary SPECIMEN COLLECTED A&P Assessment and plan (1) Acute psychosis: (2) Hallucination: (3) Altered mental status: (4) Delirium: (5) Cannabis use disorder: (6) Hypothyroidism: (7) Severe hypothyroidism: Plan This is a 43-year-old white female unknown to inpatient or outpatient psychiatric services at [facility] with a reported history of psychiatric symptoms and treatments in the past prior to moving here who presents with delirium of unknown etiology with a UDS positive for cannabis and a slightly decreased sodium. 1. Identify medications and restart medications at appropriate doses. Agree with increasing Depakote to 500 p.o. twice daily and restarting thyroid medication as well as Neurontin. Also agree with use of Zyprexa, Haldol and benzodiazepines as needed to control agitation until we have a clear picture of what is driving her behavior. 2. Continue one-to-one and possible soft restraints given level of agitation even while intubated with low propofol given concerns for safety of herself and others. 3. Encourage individual, group and milieu therapy when she is ready to participate when returns to unit. 4. Encourage sober living treatment after discharge at the highest level care to which she is willing to commit. Concerns that cannot also be contributing factor to this presentation. 5. Obtain collateral information. 6. Continue on 96-hour hold. 7. Hospitalist consult requested. Patient given 3 rounds essentially a as needed medication. Each approximately an hour apart so over a 2-hour period, every 15 minute checks were escalated to 1-1, which was escalated to assisting the one-to-one, which was escalated to seclusion which could not be done safely, so that was escalated to restraints which could not maintain her without multiple staff and security around. Given that was the case and we did not have full information on scans excetra as well as her history consideration of ICU management which would be more controlled and less reactive was requested. Appreciate hospitalist consult as well as neurology. 8. Transferred to ICU for more controlled care. 9. Will continue to follow with likely transfer back to neuropsychiatric unit once medically stable. If this is thyroid induced psychosis recovery will still take time multiple likely best be managed in the psychiatric unit. Attestations NPU Medical Necessity Statement*: Inpatient psychiatric hospitalization is medically necessary and the clinically appropriate intervention at this time. We will monitor/initiate medications and make changes as indicated. She will be hospital for over 2 midnights. Likely length of stay 7 to 10 days. Coding Level of Care Code Acute Code for Chg Fwd Diagnoses Acute psychosis F23 Hallucination R44.3 Altered mental status R41.82 Delirium R41.0 Cannabis use disorder F12.90 Hypothyroidism E03.9 Severe hypothyroidism E03.9
[2024-02-03] MEDS: HYDROmorphone 1 mg/mL INJ 1 mL 2 MG IVP ×5 (09:26→21:45)
[2024-02-03] MEDS: fentaNYL 50 mcg/mL INJ 2mL 25 MCG IVP (09:47)
[2024-02-03] MEDS: OLANZapine 10 mg VIAL 5 MG IM ×5 (09:57→22:20)
[2024-02-03] MEDS: water for injection-sterile 10 ML ×2 (10:03→14:59)
--- NOTE | 2024-02-03 10:56 | PC.NURSE ---
Patient requiring nursing staff and security to sit in room due to agitation and multiple attempts to pull ET tube, monitoring equipment, and IV catheters. Sedation titrated per protocol. See MAR for medication administration and verbal orders per Dr Chowdhury. Nurse expressed safety concerns with physician about taking patient off of unit to receive lumbar puncture. Patient has had 2 episodes of agitation requiring security presence since 0700.
[2024-02-03] MEDS: acyclovir 1,000 MG in sodium chloride 0.9% 250 ML 270 MG IV ×2 (11:11→18:17)
--- NOTE | 2024-02-03 13:56 | PC.NURSE ---
Physician contacted about notable bradycardia. Heart rate in the 30s. Telephone orders to adjust the sedation. SEE MAR FOR TITRATION. Telephone order received for Atropine PRN
--- NOTE | 2024-02-03 16:28 | ANES.PROC ---
Anesthesia Procedures Procedure/Date: 02/03/24 Lumbar Puncture: Time Out Performed: Yes Consent: requested by attending/covering physician Patient Position: left lateral decubitus Skin Prep: 0.5% Chlorhexidine/Alcohol Local anesthetic used: Lidocaine 2% Amount of anesthesia used (mL): 1 Spinal Needle Gauge: 22G Interspace Used: L4-L5 Opening Pressure (cmH20): 18 Fluid Initially Obtained: clear Complications: none
--- NOTE | 2024-02-03 16:53 | P.CONIM_ITS ---
Providers/Reason For Consult 2 Consulting Physician/Specialty*: Evens Kinney MD neurology and epilepsy Reason for Consult*: Altered mental status and psychosis Attending Physician: Delgado Rg MD History of Present Illness History of Present Illness Mehdi Mckeon is a 43 year old female with past medical history of hypothyroidism, mental disorder around 20 years ago who was brought into the ER today and was later discharged to Neuropsych Unit in setting of acute psychosis. According to the hospitalist patient's stated that the patient has been having bizarre behavior with auditory and visual hallucinations over the last 4 days. Patient reported to have insomnia with not sleeping for 4 days. Patient was reported by the to be experiencing paranoid lately and thinking people are out to get her. She was reported to internalize any aggression she would watch on TV on to herself. Denies any changes in medications though does state that they had recently moved to [place] from [place] and she has not taken her home doses of gabapentin and levothyroxine over last to 2-1/2 weeks. The patient was reported to be awake and able to have a conversation with the ER physician but continued to have hallucinations in the ER hence the patient was admitted. The patient was placed on 96 hours in the ER. Once the patient was transferred to the Neuropsych Unit the patient was reported to continued to have worsening psychosis and mentation leading to physical aggression for which she overall received 10 mg of IM Haldol, 4 mg of IM Ativan, 20 of Geodon and 50 of Benadryl overall over 3 hours. Patient continued to be physically aggressive with episodes of punching the wall and required multiple people including security personnel, nursing staff and warehouse order selector given concerns for self harm. As per nursing staff they were concerned of a possible seizure while in Neuropsych Unit with arching of her back and rolling of her eyes though patient did not have any bowel or bladder accidents or frothing from the mouth. On the admitting physician's examination and the intensive care unit the patient was reported to be awake but not alert, thrashing in bed trying to climb out of bed, having cold sweats with pupils slightly pinpoint bilaterally with sluggish reaction to light. Not able to participate in interview. Found to be tachycardic with Hr of around 120-130 bpm. The patient was reported does not have an IV access. Due to concerns for aggression not controlled by multiple medications, and the patient patient not participating in undergoing necessary investigations which could be potentialy life-saving decision was made for mechanical ventilation after confirming with her spouse over the phone. Neurology consult was obtained to assist in the patient's care. Patient underwent lumbar puncture at the bedside by anesthesia. Results of LP pending at the time of this dictation. I recommended adding labs for PCR to rabies as well as completing labs for assessing for [employer] MANAG[employer] CONSULTING MANAGER meningitis and encephalitis. Opening pressure was reported to be 18 cm of H2O which is normal. Drug allergies: Iodinated contrast medium which resulted in abdominal pain Anesthetics/Amide type A type reaction unknown Bee venom protein (honeybee) type reaction unknown Codeine type reaction unknown Ketamine type reaction unknown Trazodone type reaction unknown Current medications: Intravenous propofol Home medications: Neurontin Thyroid (pork) 15 mg p.o. daily Thyroid (pork) 90 mg p.o. daily Past medical history: Cannabis use disorder Delirium Psychosis Altered mental status Hypothyroidism Habits: Unable to obtain since patient is intubated Family history: Unable to obtain since patient is sedated and intubated Review of Systems 2 General: Reports: ROS unobtainable due to endotracheal tube and ROS unobtainable due to medical condition Medications/Allergies Home Medications Medication Instructions Recorded Confirmed Last Taken Type buprenorphine 8 mg-naloxone 2 mg 1 film buccal BID 02/02/24 02/02/24 02/01/24 History sublingual film dicyclomine 20 mg tablet 20 mg PO TID 02/02/24 02/02/24 Unknown History gabapentin 300 mg capsule See Rx Instructions .Route .COMPLEX 02/02/24 02/02/24 Unknown History thyroid (pork) 15 mg tablet ([employer] 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 15 mg PO DAILY 02/02/24 02/02/24 02/01/24 History Thyroid) thyroid (pork) 90 mg tablet ([employer] 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 90 mg PO DAILY 02/02/24 02/02/24 02/01/24 History Thyroid) Allergies Allergy/AdvReac Type Severity Reaction Status Date / Time Iodinated Contrast Media Allergy Mild ADR-Abdominal Verified 02/02/24 17:20 Pain Anesthetics - Amide Type - Allergy Unknown Verified 02/02/24 13:52 Select A bee venom protein (honey bee) Allergy Unknown Verified 02/02/24 13:43 codeine Allergy Unknown Verified 02/02/24 13:52 ketamine Allergy Unknown Verified 02/02/24 13:53 trazodone Allergy Unknown Verified 02/02/24 17:05 Current Medications Generic Name Dose Route Start Last Admin Trade Name Jean Pierreq PRN Reason Stop Dose Admin Ceftriaxone Sodium 2,000 mg 02/02/24 17:30 02/02/24 17:44 Ceftriaxone 1,000 Mg Sdv IVP 2,000 mg Q24H NELY Administration Protocol Gabapentin 300 mg 02/02/24 21:00 02/03/24 08:10 Gabapentin 300 Mg Capsule NG-TUBE 300 mg TID NELY Administration Heparin Sodium (Porcine) 5,000 unit 02/02/24 17:45 02/03/24 08:55 Heparin 5,000 Unit/Ml Inj 1 Ml SUBCUT 5,000 unit Q8H NELY Administration Hydromorphone HCl 2 mg 02/03/24 09:45 02/03/24 14:39 Hydromorphone 1 Mg/Ml Inj 1 Ml IVP 2 mg Q4H NELY Administration Fentanyl 1,000 mcg in 100 mls @ 0 mls/hr 02/02/24 16:45 02/03/24 14:00 Sublimaze IV 125 mcg/hr .Q0M NELY 12.5 mls/hr Titration Protocol Per Protocol Midazolam HCl 100 mg in 100 mls @ 0 mls/hr 02/02/24 16:45 02/03/24 10:45 Versed IV 3 mg/hr .Q0M NELY 3 mls/hr Titration Protocol Per Protocol Sodium Chloride 1,000 mls @ 75 mls/hr 02/02/24 17:27 02/03/24 05:09 Sodium Chloride 0.9% IV 75 mls/hr .[id number] NELY Administration Propofol 1,000 mg in 100 mls @ 0 mls/hr 02/02/24 22:15 02/03/24 14:02 Diprivan IV 25 mcg/kg/min .Q0M NELY 8.44 mls/hr Titration Protocol Per Protocol Norepinephrine Bitartrate 4 mg in 250 mls @ 0 mls/hr 02/02/24 23:15 02/03/24 07:00 Levophed IV 0 mcg/min .Q0M NELY 0 mls/hr Titration Protocol Per Protocol Dopamine HCl/Dextrose 400 mg in 250 mls @ 10.546 mls/hr 02/03/24 02:45 02/03/24 07:00 Intropin Drip IV 7.5 mcg/kg/min CONT NELY 15.82 mls/hr Titration Protocol 5 MCG/KG/MIN Acyclovir 1,000 mg/ Sodium 270 mls @ 270 mls/hr 02/03/24 10:30 02/03/24 13:13 Chloride IV Infused Q8H NELY Infusion Levothyroxine Sodium 100 mcg 02/02/24 21:45 02/03/24 08:08 Levothyroxine 100 Mcg Sdv IVP 100 mcg DAILY NELY Administration Lorazepam 2 mg 02/03/24 07:43 02/03/24 14:40 Lorazepam 2 Mg/Ml Inj 1 Ml IVP 2 mg Q4H PRN Administration ANXIETY Olanzapine 5 mg 02/03/24 09:43 02/03/24 14:58 Olanzapine 10 Mg Vial IM 5 mg Q6H PRN Administration SEVERE AGITATION Pantoprazole Sodium 40 mg 02/02/24 17:27 02/02/24 17:44 Pantoprazole 40 Mg Sdv IVP 40 mg Q24H NELY Administration PFSH Acute 2 PFSH: Medical History (Updated 02/02/24 @ 23:36 by Delgado Rg MD) Hypothyroidism Surgical History (Updated 02/02/24 @ 18:21 by Goldy Alexander MD) No pertinent past surgical history Social History (Updated 02/02/24 @ 18:22 by Goldy Alexander MD) Smoking and tobacco/nicotine status: unknown if used tobacco/nicotine Alcohol intake: unknown Substance/Drug Use: never Household members: spouse Housing: House Marital status: Vitals/I&O/Wt Last Vital Signs Temp 98.6 F 02/03/24 16:35 Pulse 45 L 02/03/24 16:50 Resp 12 02/03/24 15:18 BP 136/75 02/03/24 16:50 Pulse Ox 98 02/03/24 16:50 O2 Del Method Room Air 02/02/24 16:30 FiO2 30 02/03/24 15:18 02/03/24 02/03/24 02/03/24 06:59 14:59 22:59 Intake Total 1097.896 / 1164.126 645.241 / 645.241 Output Total 1000 / 1000 Balance 97.896 / 164.126 645.241 / 645.241 Weight last 48 hrs Weight 131 lb 2.801 oz Weight 124 lb Physical Exam 2 Narrative: Blood pressure 136/75 heart rate 45 respirations 12 on the ventilator temperature 98.6 ?F O2 saturation 98% on ventilator The patient is sedated on propofol. Pupils 4 to 5 mm slightly reactive to light. Motor examination revealed the corticated posture on the ventilator. Deep tendon reflex revealed plantar responses bilaterally. There was no obvious clinical signs of any seizures at the bedside. Throat unable to assess secondary to intubation tube. Lungs revealed no wheezing. Heart revealed a regular rhythm with decreased rate. Extremities were negative for cyanosis. Bowel sounds positive. Urinary Catheter Management: Yin: Cath Placed During This Visit: yes Reason for Continuing Indwelling Catheter: Accurate Measurement of Urinary Output in Critically Ill Patients Urinary Catheter Date of Insertion: 02/02/24 Urinary Catheter Time of Insertion: 17:31 Data 02/03/24 04:47 02/03/24 04:47 Micro: Microbiology 02/02/24 17:20 Gram Stain - Final Sputum - Endotracheal Tube Aspirate Sputum Culture - Preliminary 02/02/24 17:08 Bacterial Antigens - Final Urine Kidney 02/02/24 19:29 Blood Culture - Preliminary Blood SPECIMEN COLLECTED 02/02/24 19:22 Blood Culture - Preliminary Blood SPECIMEN COLLECTED A&P Assessment and plan (1) Altered mental status: Impression: 1. Altered mental status with acute psychosis and agitation etiology unclear (noncontrast head CT 02/02/2024 revealed no acute findings) Plan: 1. Agree with obtaining lumbar puncture by radiology/anesthesia to assess for [employer]ING MANAGEMENT CONSULTING MANAGER infection and evaluate for encephalitis and rabies 2. Agree with current treatment (2) Acute psychosis: Consult Attestations 2 Medical Necessity Statement: The patient was evaluated by neurology for reports of altered mental status Coding Level of Care Code 92473 Diagnoses Altered mental status R41.82 Acute psychosis F23
--- NOTE | 2024-02-03 17:01 | P.PN_ITS ---
Subjective 2 Subjective: Seen multiple times during the day. Overnight patient continued to have multiple episodes of agitation for which propofol was added and Versed was discontinued. Today morning on examination she is maxed out on fentanyl with 200 comparable close 40. She did have episode of bradycardia after maximum sedation. Heart rate improved after coming down on sedation though patient became agitated again. Otherwise patient has remained afebrile. Intermittently has required dopamine when heart rate is below 40. Vitals/I&O/Wt Last Vital Signs Temp 98.6 F 02/03/24 16:35 Pulse 45 L 02/03/24 16:50 Resp 12 02/03/24 15:18 BP 136/75 02/03/24 16:50 Pulse Ox 98 02/03/24 16:50 O2 Del Method Room Air 02/02/24 16:30 FiO2 30 02/03/24 15:18 02/03/24 02/03/24 02/03/24 06:59 14:59 22:59 Intake Total 1097.896 / 1164.126 645.241 / 645.241 Output Total 1000 / 1000 Balance 97.896 / 164.126 645.241 / 645.241 Weight last 48 hrs Weight 59.5 kg Weight 56.245 kg Physical Exam 2 Narrative: General: Intubated, sedated, intermittently agitated, thrashing in bed HEENT: PERRLA, pupils bilaterally equal and sluggishly reactive, pinpoint Chest: Normal vesicular breath sounds, no added sounds, equal good air entry bilaterally CVS: S1-S2 regular, no murmurs, bradycardia, no gallops, no rubs Abdomen: Soft, nontender, no organomegaly, bowel sounds present Neuro: No focal deficits, no facial deformity, moving all limbs, thrashing in bed Urinary Catheter Management: Yin: Cath Placed During This Visit: yes Reason for Continuing Indwelling Catheter: Accurate Measurement of Urinary Output in Critically Ill Patients Urinary Catheter Date of Insertion: 02/02/24 Urinary Catheter Time of Insertion: 17:31 Data 02/03/24 04:47 02/03/24 04:47 Micro: Microbiology 02/02/24 17:20 Gram Stain - Final Sputum - Endotracheal Tube Aspirate Sputum Culture - Preliminary 02/02/24 17:08 Bacterial Antigens - Final Urine Kidney 02/02/24 19:29 Blood Culture - Preliminary Blood SPECIMEN COLLECTED 02/02/24 19:22 Blood Culture - Preliminary Blood SPECIMEN COLLECTED A&P Assessment and plan (1) Acute psychosis: Unknown cause. Associated with some visual and auditory hallucination worsening over last 4 days. Concerns for inflicting self-harm in the Neuropsych Unit with punching of the cortes. Has missed her chronic home medications including gabapentin levothyroxine over last 2 weeks as per patient's . Given concerns for acute psychosis with patient inflicting self-harm, not being able to managed with multiple antipsychotics and benzodiazepines with concerns of possible seizures with multiple antipsychotics requirement which could lead to respiratory distress for now we will go ahead and intubate the patient so necessary investigation can be done at the earliest. Concerns for possible seizure with arching of the back and rolling of the eyes while in the Neuropsych Unit. Though no past history. No bowel or bladder accidents. Cannot rule out in setting of withdrawal from gabapentin. Respiratory viral panel negative, procalcitonin negative, prolactin elevated, beta-hCG negative, alcohol level, Tylenol level, salicylate level, repeat urine drug screen appreciated negative. Respiratory viral panel negative. Follow-up sputum culture. MRSA swab negative. 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 TSH found to be elevated more than 111. Appreciate free T3 and free T4. Cortisol levels elevated. IV levothyroxine 100 mcg daily. Monitor thyroid panel every 48 hours. Lumbar puncture done later in the day today. Will follow-up CSF studies including analysis, culture. Will check for oligoclonal bands, HSV, VDRL, protein, glucose. Plan for bio fire meningitis panel to rule out encephalitis. Will consult neurology for further recommendations. For now continue with ceftriaxone 2 g IV daily. MRSA swab negative. Hold off on adding MRSA coverage. Continue with empiric acyclovir 1 g IV every [address] head and neck with and without contrast. No acute abnormality seen. Normal ESR, CRP. Continue sedation with fentanyl, propofol. Will wean both keeping patient's heart rate more than 50 while patient is safe without slashing or concerns for self extubation. Cannot add Precedex because of bradycardia. If needed will add low-dose of Versed. Continue with gabapentin 300 mg 3 times daily. Increase Depakote to 250 3 times daily. Add Zyprexa Zydis 5 mg every afternoon. Zyprexa Zydis 5 mg p.o. 3 times daily as needed, 5 mg IM every 6 hours as needed, Haldol 5 mg IM every 6 hours as needed for agitation not controlled by sedation. Patient does take Suboxone at home. Cannot rule out in setting of pain medication withdrawal. Start on Dilaudid 2 mg IV every 4 hours. (2) Hypothyroidism: Severe hypothyroidism. Concerns for myxedema psychosis. Start on levothyroxine 100 mcg IV daily. Cortisol level elevated. Hold off on steroids. ESR, CRP normal. Low concerns for Kevin's encephalopathy as no concerns for thyroiditis. Follow-up thyroid panel every 48 hours. (3) Hallucination: As #1 (4) Bradycardia associated with anesthesia: Bradycardic on high-dose fentanyl and propofol. Heart rate improving under decreasing sedation. For now continue to monitor heart rate while being on sedation as patient is at high risk of thrashing and self extubation. Dopamine as needed. Target heart rate more than 45-50. Mean artery pressure target more than 65. Hold off on rate limiting medications. Follow-up echocardiogram. (5) Severe hypothyroidism: Plan Patient's care discussed in detail with patient's over the phone. All the questions were answered. Currently on 96-hour hold. N.p.o. Full code Protonix OPD prophylaxis Heparin 5000 Q8 hourly for DVT prophylaxis. Care discussed in detail with patient and spouse over the phone, nursing staff at bedside, Dr. Rg over the phone. Thank you for involving us in care of Ms. Mckeon. Please call with any concerns. Attestations 2 Medical Necessity Statement*: Requires further hospitalization for management of acute psychosis with high concerns for myxedema psychosis in setting of severe hypothyroidism, hallucination, bradycardia secondary to anesthesia as patient remains mechanically ventilated Critical Care Time: The high probability of a clinically significant, sudden or life threatening deterioration of the patient's [cardiac, endocrine, neurological, psychiatric,] system(s) required my full and direct attention, intervention and personal management. The critical care time is as shown. This time is in addition to time spent performing any reported procedures but includes the following: [x] Data and vital sign review and interpretation [x] Patient assessment, examination and intervention [x] Documentation [x] Medication orders and management Critical Care Time (min): 90 Coding Level of Care Code Critical Care >/= 30 minutes Critical care time (in minutes): 90 The high probability of a clinically significant, sudden or life threatening deterioration, as referenced in this documentation, required my full and direct attention, intervention and personal management. The critical care time shown is in addition to time spent performing any reported separately billable procedures and includes the following: [x] Data and vital sign review and interpretation [x ] Patient assessment, examination and intervention [x] Medication orders and management [x] Patient/Family updates as able [x] Care Coordination and Documentation. Other Coding Information This patient has a high probability of clinically significant, sudden or life threatening deterioration of the patient's (neurological/pulmonary/cardiac/renal/ID/endocrine) systems required my full, direct attention, the highest level of physician preparedness for urgent intervention and personal management. I managed/supervised life or organ supporting interventions that required frequent physician assessment. I devoted my full attention in the ICU to the direct care of this patient for the period of time indicated above. Time I spent with family or surrogate(s) is included only if the patient was incapable of providing necessary information or participating in decision making. This time includes the following services provided: Telemetry review Mechanical Ventilation Hemodynamic interpretation, assessment and management Review and interpretation of CXR Review and interpretation of lab values Review and interpretation of microbiologic data and culture results Review of medications and administration Review and interpretation of Nutrition requirements and management Discussion of management with other consultants and services Clinical update to family members Diagnoses Acute psychosis F23 Hypothyroidism E03.9 Hallucination R44.3 Bradycardia associated with anesthesia Severe hypothyroidism E03.9
[2024-02-03] MEDS: fentaNYL 1,000 MCG/100 ML BAG 12.5 MCG IV (17:15)
[2024-02-03] MEDS: pantoprazole 40 mg SDV IVP (17:16)
[2024-02-03] MEDS: cefTRIAXone 1,000 mg SDV 2000 MG IVP (17:16)
[2024-02-03] MEDS: divalproex Sprinkles 125 mg Capsule 250 MG OG-TUBE (17:17)
[2024-02-03 17:42] LABS: CSF Specific Gravity 1.007; Cyto Order Verification No Order
--- NOTE | 2024-02-03 17:53 | PC.NURSE ---
Addendum entered by Berny Cannon RN 02/03/24 17:56: All testing specimens handed to lab personnel by this nurse. Original Note: Assisted with bedside lumbar puncture. Timeout completed prior to starting the procedure
[2024-02-03 18:13] LABS: CSF Mononuclear # 0.001 10^3/uL (50-90); Mononuclear WBC CSF % 11 % (50-90); Polynuclear Cells ,CSF # 0.008 10^3/uL (0-10); Polynuclear WBC CSF % 89 % (0-10); Red Blood Cell CSF 0 10^3/uL (0-0); White Blood Cell CSF 9 /uL (0-5)
[2024-02-03] MEDS: DOPamine drip 400 MG/250 ML PREMIX 26.37 MG IV (18:25)
[2024-02-03 18:33] LABS: Total Protein CSF 190 mg/dL (15-45)
[2024-02-03 19:00] LABS: Glucose CSF 74 mg/dL (40-70)
[2024-02-03 19:04] LABS: Appearance CSF CLEAR (CLEAR); Color CSF COLORLESS (COLORLESS); Pathology Referral Yes
[2024-02-03 19:14] LABS: HIV 1 & 2 Antibody Non-Reactive (Non-Reactiv); HIV 1 & 2 Antigen Non-Reactive (Non-Reactiv)
[2024-02-03] MEDS: propofol 1,000 MG/100 ML INJ 11.81 MG IV (20:09)
[2024-02-03] MEDS: valproic acid 250 mg/5 mL UDC OG-TUBE (20:55)
[2024-02-03] MEDS: OLANZapine 5 mg ODT PO (20:55)
--- NOTE | 2024-02-03 23:46 | PC.NURSE ---
Pt had been resting well under direct watch of this nurse. Heart rate had been consistently in 40's. Pt abruptly sat up and began pulling at restraints in attempt to self extubate. This nurse intervened and patient began slapping hands on the bed, attempted to kick this nurse while at bedside, grabbed at her calos area, and continued to attempt to self extubate with her hands and attempted to push tube out of her mouth with her tongue. Patient attempted to talk around ET tube constantly, smiled periodically, and moved her head side to side as if having conversation. When spoken to would acknowledge who was speaking, but only for short time before fighting restraints again. This nurse administered PRN IV lorazepam which was ineffective, then IM zyprexa which was also ineffective, titrated Fentanyl up per protocol, was ineffective, then increased versed per protocol as well. Pt was anxious, combative, and actively trying to self extubate for approximately 1.5 hours before being at rest. Currently resting, sinus félix, MAP 84 with Dopamine ongoing at unchanged rate since shift began.
[2024-02-04] VITALS (106 sets, daily range): BP systolic 72–130; BP diastolic 22–78; PULSE 36–137; RESP 12–25; TEMP 36.1–36.6; O2SAT 93–100
[2024-02-04] MEDS: HYDROmorphone 1 mg/mL INJ 1 mL 2 MG IVP ×6 (02:30→21:25)
[2024-02-04] MEDS: acyclovir 1,000 MG in sodium chloride 0.9% 250 ML 270 MG IV ×3 (02:30→19:14)
[2024-02-04] MEDS: heparin 5,000 unit/mL INJ 1 mL 5000 UNIT SUBCUT ×3 (02:30→17:24)
[2024-02-04] MEDS: DOPamine drip 400 MG/250 ML PREMIX 31.64 MG IV (03:29)
[2024-02-04] MEDS: fentaNYL 1,000 MCG/100 ML BAG 20 MCG IV (03:46)
[2024-02-04] MEDS: fentaNYL 1,000 MCG/100 ML BAG 17.5 MCG IV ×2 (05:02→08:24)
[2024-02-04] MEDS: propofol 1,000 MG/100 ML INJ 6.75 MG IV (05:10)
[2024-02-04 05:38] LABS: Basophils % 0.4 %; Eosinophils # 0.1 10^3/uL (0.0-0.8); Eosinophils % 1.1 %; Lymphocytes # 3.3 10^3/uL (0.8-4.8); Lymphocytes % 39.5 %; Mean Corpuscular HGB Conc 32.9 g/dL (30-55); Mean Corpuscular Hemoglobin 30.4 pg (27-33); Mean Corpuscular Volume 92.6 fl (85-98); Mean Platelet Volume 10.3 fL (7.4-10.4); Monocytes # 0.6 10^3/uL (0.2-0.9); Neutrophils # 4.31 10^3/uL (1.8-7.7); Neutrophils % 51.8 %; Nucleated Red Blood Cells % 0 %; Platelet Count 227 10^3/cmm (157-399); Red Blood Count 3.78 10^6/uL (3.85-5.65); Red Cell Distribution Width 13.2 % (12.1-15.1); White Blood Count 8.31 10^3/uL (3.29-11.43)
[2024-02-04 06:06] LABS: Magnesium 2.4 mg/dL (1.7-2.3)
[2024-02-04 06:08] LABS: Alanine Aminotransferase 27 U/L (0-33); Albumin Level 3.8 g/dL (3.5-5.2); Alkaline Phosphatase 46 U/L (35-105); Aspartate Amino Transferase 95 U/L (0-32); Blood Urea Nitrogen 6 mg/dL (6-20); Calcium 7.9 mg/dL (8.5-10.5); Carbon Dioxide 22 mmol/L (22-29); Chloride 111 mmol/L (98-107); Creatinine Clr Calc Pharmacy 89.0628; Globulin 1.9 g/dL (1.3-4.6); Glomerular Filtration Rate 90.5 mL/min (90-130); Glucose 190 mg/dL (65-115); Osmolality Calculated 301 mOsm/kg (285-295); Sodium 144 mmol/L (136-145); Total Bilirubin 0.2 mg/dL (0.15-1.2); Total Protein 5.7 g/dL (6.6-8.7)
[2024-02-04] MEDS: midazolam hcl 100 MG/100 ML BAG IV ×2 (06:46→22:53)
[2024-02-04] MEDS: valproic acid 250 mg/5 mL UDC OG-TUBE ×3 (08:01→21:19)
[2024-02-04] MEDS: levothyroxine 100 mcg SDV IVP (08:01)
[2024-02-04] MEDS: sodium chloride 0.9% 1,000 ML 75 ML IV (08:01)
[2024-02-04] MEDS: gabapentin 300 mg Capsule NG-TUBE ×3 (08:01→21:19)
[2024-02-04] MEDS: potassium chloride oral liq 20 mEq/15 mL UDC 80 MEQ OG-TUBE (09:12)
[2024-02-04] MEDS: norepinephrine 4 MG/250 ML BAG 7.5 MG IV (13:00)
--- NOTE | 2024-02-04 13:46 | PC.NURSE ---
Able to titrate dopamine off per MAR due to HR, patient awakes and responds appropriately for the most part, plan per Dr. Alexander due start precedex and attempt to wean off propofol
[2024-02-04] MEDS: dexmedeTOMIDine 0.9 % NaCL 400 MCG/100 ML PREMIX IV (14:11)
[2024-02-04] MEDS: fentaNYL 1,000 MCG/100 ML BAG 15 MCG IV ×2 (14:16→19:40)
--- NOTE | 2024-02-04 14:27 | P.PN_ITS ---
Subjective 2 Subjective: Acute events overnight. Patient has remained stable. Patient appears to be more calm today. On decreasing sedation patient is waking up, thrashing less, more directable, following some simple directions. Blood pressures have been on the softer side with requiring Levophed on and off. Dopamine was started off. She is currently on sedation with fentanyl 150, propofol 15, Versed 6, Levophed 4. Appreciate urine output. Vitals/I&O/Wt Last Vital Signs Temp 97.0 F L 02/04/24 06:00 Pulse 137 H 02/04/24 12:30 Resp 25 H 02/04/24 14:09 BP 93/22 02/04/24 12:30 Pulse Ox 98 02/04/24 14:09 O2 Del Method Room Air 02/02/24 16:30 FiO2 30 02/04/24 14:09 02/03/24 02/04/24 02/04/24 22:59 06:59 14:59 Intake Total 1553.035 / 2316.926 714.364 / 3031.290 1420.439 / 1420.439 Output Total 950 / 950 2500 / 3450 Balance 603.035 / 1366.926 -1785.636 / -372.895 8184.439 / 1420.439 Weight last 48 hrs Weight 60.371 kg Weight 59.5 kg Physical Exam 2 Narrative: General: Intubated, sedated, intermittently agitated, thrashing in bed HEENT: PERRLA, pupils bilaterally equal and sluggishly reactive, pinpoint Chest: Normal vesicular breath sounds, no added sounds, equal good air entry bilaterally CVS: S1-S2 regular, no murmurs, bradycardia, no gallops, no rubs Abdomen: Soft, nontender, no organomegaly, bowel sounds present Neuro: No focal deficits, no facial deformity, moving all limbs, thrashing in bed Urinary Catheter Management: Yin: Cath Placed During This Visit: yes Reason for Continuing Indwelling Catheter: Accurate Measurement of Urinary Output in Critically Ill Patients Urinary Catheter Date of Insertion: 02/02/24 Urinary Catheter Time of Insertion: 17:31 Data 02/04/24 05:19 02/04/24 15:35 Micro: Microbiology 02/03/24 16:15 Gram Stain - Final Cerebrospinal Fluid CSF Culture - Preliminary 02/02/24 17:20 Gram Stain - Final Sputum - Endotracheal Tube Aspirate Sputum Culture - Final 02/02/24 19:29 Blood Culture - Preliminary Blood NEGATIVE TO DATE 02/02/24 19:22 Blood Culture - Preliminary Blood NEGATIVE TO DATE 02/03/24 16:15 Bacterial Antigens - Final Cerebrospinal Fluid 02/02/24 17:08 Bacterial Antigens - Final Urine Kidney A&P Assessment and plan (1) Acute psychosis: Unknown cause. Associated with some visual and auditory hallucination worsening over last 4 days. Concerns for inflicting self-harm in the Neuropsych Unit with punching of the cortes. Has missed her chronic home medications including gabapentin levothyroxine over last 2 weeks as per patient's . Given concerns for acute psychosis with patient inflicting self-harm, not being able to managed with multiple antipsychotics and benzodiazepines with concerns of possible seizures with multiple antipsychotics requirement which could lead to respiratory distress for now we will go ahead and intubate the patient so necessary investigation can be done at the earliest. Concerns for possible seizure with arching of the back and rolling of the eyes while in the Neuropsych Unit. Though no past history. No bowel or bladder accidents. Cannot rule out in setting of withdrawal from gabapentin. Respiratory viral panel negative, procalcitonin negative, prolactin elevated, beta-hCG negative, alcohol level, Tylenol level, salicylate level, repeat urine drug screen appreciated negative. Respiratory viral panel negative. Follow-up sputum culture. MRSA swab negative. 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 TSH found to be elevated more than 111. Appreciate free T3 and free T4. Cortisol levels elevated. IV levothyroxine 100 mcg daily. Plan for repeat thyroid profile in AM. Monitor thyroid panel every 48 hours. CSF studies appreciated. Protein elevated to more than 190, glucose mildly elevated. Follow-up various CSF studies including VDRL, HSV, bio fire. Less likelihood of bacterial meningitis. Will continue IV ceftriaxone and 1 g daily for 5-day course. Continue with acyclovir 1 g Q8 hourly. Will monitor renal functions. Appreciate neurology consult. Further CSF studies sent accordingly. Continue sedation with fentanyl and Versed. Will add Precedex. Plan to discontinue propofol today. Monitor heart rate. Heart rate has been stable recently. If trends down will discontinue Precedex. Continue with gabapentin 300 mg 3 times daily, Depakote to 250 3 times daily, Zyprexa Zydis 5 mg every night. Check Depakote level in AM. Zyprexa Zydis 5 mg p.o. 3 times daily as needed, 5 mg IM every 6 hours as needed, Haldol 5 mg IM every 6 hours as needed for agitation not controlled by sedation. Patient does take Suboxone at home. Cannot rule out in setting of pain medication withdrawal. Start on Dilaudid 2 mg IV every 4 hours. (2) Hypothyroidism: Severe hypothyroidism. Concerns for myxedema psychosis. Start on levothyroxine 100 mcg IV daily. Cortisol level elevated. Hold off on steroids. ESR, CRP normal. Low concerns for Kevin's encephalopathy as no concerns for thyroiditis. Follow-up thyroid panel every 48 hours. (3) Hallucination: As #1 (4) Bradycardia associated with anesthesia: Bradycardic on high-dose fentanyl and propofol. Heart rate improving under decreasing sedation. For now continue to monitor heart rate while being on sedation as patient is at high risk of thrashing and self extubation. Dopamine as needed. Target heart rate more than 45-50. Mean artery pressure target more than 65. Hold off on rate limiting medications. Appreciate echocardiogram results. (5) Severe hypothyroidism: Plan Hypernatremia: Sodium up to 146 today. Switch fluid to D5 NS at 75 cc/h. Monitor renal functions daily. ZAHRAA: Creatinine up to 1.3 today. Patient has remained euvolemic on input output. Most likely in setting of occasional hypotension along with acyclovir. Fluid as above. Continue to monitor renal functions daily. Medical reconciliation done for nephrotoxic drugs. Patient's care discussed in detail with patient's over the phone. All the questions were answered. Currently on 96-hour hold. N.p.o. Full code Protonix OPD prophylaxis Heparin 5000 Q8 hourly for DVT prophylaxis. Care discussed in detail with patient and spouse over the phone, nursing staff at bedside, Dr. Rg over the phone. Thank you for involving us in care of Ms. Mckeon. Please call with any concerns. Attestations 2 Medical Necessity Statement*: Requires further hospitalization for management and evaluation of severe psychosis most likely in setting of myxedema psychosis, severe hypothyroidism viral etiologies are ruled out, respiratory failure requiring ventilation to protect airway, ZAHRAA Critical Care Time: The high probability of a clinically significant, sudden or life threatening deterioration of the patient's [neurological, renal, psychiatry, pulmonary] s ystem(s) required my full and direct attention, intervention and personal management. The critical care time is as shown. This time is in addition to time spent performing any reported procedures but includes the following: [x] Data and vital sign review and interpretation [x] Patient assessment, examination and intervention [x] Documentation [x] Medication orders and management Critical Care Time (min): 90 Coding Level of Care Code Critical Care >/= 30 minutes Critical care time (in minutes): 90 The high probability of a clinically significant, sudden or life threatening deterioration, as referenced in this documentation, required my full and direct attention, intervention and personal management. The critical care time shown is in addition to time spent performing any reported separately billable procedures and includes the following: [x] Data and vital sign review and interpretation [x ] Patient assessment, examination and intervention [x] Medication orders and management [x] Patient/Family updates as able [x] Care Coordination and Documentation. Other Coding Information This patient has a high probability of clinically significant, sudden or life threatening deterioration of the patient's (neurological/pulmonary/cardiac/renal/ID/endocrine) systems required my full, direct attention, the highest level of physician preparedness for urgent intervention and personal management. I managed/supervised life or organ supporting interventions that required frequent physician assessment. I devoted my full attention in the ICU to the direct care of this patient for the period of time indicated above. Time I spent with family or surrogate(s) is included only if the patient was incapable of providing necessary information or participating in decision making. This time includes the following services provided: Telemetry review Mechanical Ventilation Hemodynamic interpretation, assessment and management Review and interpretation of CXR Review and interpretation of lab values Review and interpretation of microbiologic data and culture results Review of medications and administration Review and interpretation of Nutrition requirements and management Discussion of management with other consultants and services Clinical update to family members Diagnoses Acute psychosis F23 Hypothyroidism E03.9 Hallucination R44.3 Bradycardia associated with anesthesia Severe hypothyroidism E03.9
--- NOTE | 2024-02-04 14:34 | W.PM.NPUPNS ---
Subjective NPU Subjective: Patient presented today continuing to be intubated. Staff report no changes and continued signs of irritability and agitation. Discussed the case with treatment team and she will likely be continued in the state for at least another day or so and then an attempt to extubate will ensue. Mental Status Exam MSE Comments: This is a slender white female in hospital scrubs with limited grooming and eye contact. Absent dentition with some facial atrophy. No abnormal movements except for significant psychomotor agitation. Significant aimless behavior. Uncooperative with exam and moderate distress. Speech was nonexistent today as she was intubated Mood not described, affect agitated and confused. Thought process not evaluated and remainder of examination not performed given her being intubated and not alert. Vitals/I&O/Wt Last Vital Signs Temp 97.0 F L 02/04/24 06:00 Pulse 126 H 02/04/24 14:00 Resp 25 H 02/04/24 14:09 BP 92/59 02/04/24 14:00 Pulse Ox 98 02/04/24 14:09 O2 Del Method Room Air 02/02/24 16:30 FiO2 30 02/04/24 14:09 02/03/24 02/04/24 02/04/24 22:59 06:59 14:59 Intake Total 1553.035 / 2316.926 714.364 / 3031.290 1420.439 / 1420.439 Output Total 950 / 950 2500 / 3450 Balance 603.035 / 1366.926 -1785.636 / -821.249 3317.439 / 1420.439 Weight last 48 hrs Weight 60.371 kg Weight 59.5 kg Physical Exam Urinary Catheter Management: Yin: Cath Placed During This Visit: yes Reason for Continuing Indwelling Catheter: Accurate Measurement of Urinary Output in Critically Ill Patients Urinary Catheter Date of Insertion: 02/02/24 Urinary Catheter Time of Insertion: 17:31 Data NPU 02/05/24 02:51 02/05/24 02:51 Micro: Microbiology 02/03/24 16:15 Gram Stain - Final Cerebrospinal Fluid CSF Culture - Preliminary 02/02/24 17:20 Gram Stain - Final Sputum - Endotracheal Tube Aspirate Sputum Culture - Final 02/02/24 19:29 Blood Culture - Preliminary Blood NEGATIVE TO DATE 02/02/24 19:22 Blood Culture - Preliminary Blood NEGATIVE TO DATE 02/03/24 16:15 Bacterial Antigens - Final Cerebrospinal Fluid 02/02/24 17:08 Bacterial Antigens - Final Urine Kidney Microbiology 02/03/24 16:15 Cerebrospinal Fluid Gram Stain - Final 02/03/24 16:15 Cerebrospinal Fluid CSF Culture - Preliminary 02/02/24 17:20 Sputum - Endotracheal Tube Aspirate Gram Stain - Final 02/02/24 17:20 Sputum - Endotracheal Tube Aspirate Sputum Culture - Final 02/02/24 19:29 Blood Blood Culture - Preliminary NEGATIVE TO DATE 02/02/24 19:22 Blood Blood Culture - Preliminary NEGATIVE TO DATE 02/03/24 16:15 Cerebrospinal Fluid Bacterial Antigens - Final 02/02/24 17:08 Urine Kidney Bacterial Antigens - Final A&P Assessment and plan (1) Altered mental status: (2) Acute psychosis: (3) Hallucination: (4) Delirium: (5) Cannabis use disorder: (6) Hypothyroidism: (7) Severe hypothyroidism: Plan This is a 43-year-old white female unknown to inpatient or outpatient psychiatric services at [facility] with a reported history of psychiatric symptoms and treatments in the past prior to moving here who presents with delirium of unknown etiology with a UDS positive for cannabis and a slightly decreased sodium. 1. Identify medications and restart medications at appropriate doses. Agree with increasing Depakote to 500 p.o. twice daily and restarting thyroid medication as well as Neurontin. Also agree with use of Zyprexa, Haldol and benzodiazepines as needed to control agitation until we have a clear picture of what is driving her behavior. 2. Continue one-to-one and possible soft restraints given level of agitation even while intubated with low propofol given concerns for safety of herself and others. 3. Encourage individual, group and milieu therapy when she is ready to participate when returns to unit. 4. Encourage sober living treatment after discharge at the highest level care to which she is willing to commit. Concerns that cannot also be contributing factor to this presentation. 5. Obtain collateral information. 6. Continue on 96-hour hold. 7. Hospitalist consult requested. Patient given 3 rounds essentially a as needed medication. Each approximately an hour apart so over a 2-hour period, every 15 minute checks were escalated to 1-1, which was escalated to assisting the one-to-one, which was escalated to seclusion which could not be done safely, so that was escalated to restraints which could not maintain her without multiple staff and security around. Given that was the case and we did not have full information on scans excetra as well as her history consideration of ICU management which would be more controlled and less reactive was requested. Appreciate hospitalist consult as well as neurology. 8. Transferred to ICU for more controlled care. Transferred to [facility] to complete the thiamine IV administration. 9. Will continue to follow with likely transfer back to neuropsychiatric unit once medically stable. If this is thyroid induced psychosis recovery will still take time multiple likely best be managed in the psychiatric unit. Attestations NPU Medical Necessity Statement*: Inpatient psychiatric hospitalization is medically necessary and the clinically appropriate intervention at this time. We will monitor/initiate medications and make changes as indicated. She will be hospital for over 2 midnights. Likely length of stay 7 to 10 days. Coding Level of Care Code Acute Code for Chg Fwd Diagnoses Altered mental status R41.82 Acute psychosis F23 Hallucination R44.3 Delirium R41.0 Cannabis use disorder F12.90 Hypothyroidism E03.9 Severe hypothyroidism E03.9
[2024-02-04 16:21] LABS: Anion Gap 12.6 (5-19); Blood Urea Nitrogen 7 mg/dL (6-20); Calcium 7.7 mg/dL (8.5-10.5); Carbon Dioxide 21 mmol/L (22-29); Chloride 117 mmol/L (98-107); Creatinine Clr Calc Pharmacy 47.9569; Glomerular Filtration Rate 44.3 mL/min (90-130); Glucose 93 mg/dL (65-115); Osmolality Calculated 302 mOsm/kg (285-295); Potassium 3.6 mmol/L (3.5-5.1); Sodium 147 mmol/L (136-145)
[2024-02-04 16:59] LABS: Anti-Double Strand DNA AB 2 IU/mL; Jo-1 Antibody <1.0 NEG AI (<1.0 NEG); SS-B/LA IGG <1.0 NEG AI (<1.0 NEG); Scleroderma Ab(Scl-70) Ab <1.0 NEG AI (<1.0 NEG); Ss-A/Ro Igg <1.0 NEG AI (<1.0 NEG)
[2024-02-04] MEDS: pantoprazole 40 mg SDV IVP (17:24)
[2024-02-04] MEDS: dextrose 5%-sod chloride 0.9% 1,000 ML 75 ML IV (17:24)
[2024-02-04] MEDS: cefTRIAXone 1,000 mg SDV 1000 MG IVP (17:33)
[2024-02-04] MEDS: dexmedeTOMIDine 0.9 % NaCL 400 MCG/100 ML PREMIX 10.57 MCG IV (19:40)
[2024-02-04] MEDS: OLANZapine 5 mg ODT PO (21:19)
[2024-02-05] VITALS (54 sets, daily range): BP systolic 95–143; BP diastolic 60–90; PULSE 38–72; RESP 12–33; TEMP 36–36.3; O2SAT 96–100
[2024-02-05] MEDS: norepinephrine 4 MG/250 ML BAG 15 MG IV (00:19)
[2024-02-05] MEDS: acyclovir 1,000 MG in sodium chloride 0.9% 250 ML 270 MG IV (02:27)
[2024-02-05] MEDS: heparin 5,000 unit/mL INJ 1 mL 5000 UNIT SUBCUT ×3 (02:28→17:49)
[2024-02-05] MEDS: HYDROmorphone 1 mg/mL INJ 1 mL 2 MG IVP ×3 (02:28→09:06)
[2024-02-05 03:25] LABS: Basophils % 0.2 %; Eosinophils # 0.1 10^3/uL (0.0-0.8); Hematocrit 33.6 % (36-47); Lymphocytes # 1.8 10^3/uL (0.8-4.8); Lymphocytes % 19.4 %; Mean Corpuscular HGB Conc 31.8 g/dL (30-55); Mean Corpuscular Hemoglobin 30.2 pg (27-33); Mean Corpuscular Volume 94.9 fl (85-98); Mean Platelet Volume 11.3 fL (7.4-10.4); Monocytes # 0.8 10^3/uL (0.2-0.9); Monocytes % 8.7 %; Neutrophils # 6.56 10^3/uL (1.8-7.7); Neutrophils % 70.5 %; Nucleated Red Blood Cells % 0 %; Platelet Count 217 10^3/cmm (157-399); Red Blood Count 3.54 10^6/uL (3.85-5.65); Red Cell Distribution Width 13.6 % (12.1-15.1); White Blood Count 9.31 10^3/uL (3.29-11.43)
[2024-02-05 03:49] LABS: Valproic Acid Level 45.8 ug/mL (50-100)
[2024-02-05 03:50] LABS: Alanine Aminotransferase 27 U/L (0-33); Albumin Level 3.3 g/dL (3.5-5.2); Alkaline Phosphatase 46 U/L (35-105); Aspartate Amino Transferase 87 U/L (0-32); Blood Urea Nitrogen 9 mg/dL (6-20); Calcium 7.7 mg/dL (8.5-10.5); Carbon Dioxide 19 mmol/L (22-29); Chloride 118 mmol/L (98-107); Creatinine Clr Calc Pharmacy 25.7142; Globulin 1.8 g/dL (1.3-4.6); Glomerular Filtration Rate 21.8 mL/min (90-130); Glucose 139 mg/dL (65-115); Osmolality Calculated 305 mOsm/kg (285-295); Sodium 147 mmol/L (136-145); Total Bilirubin 0.2 mg/dL (0.15-1.2); Total Protein 5.1 g/dL (6.6-8.7)
[2024-02-05] MEDS: fentaNYL 1,000 MCG/100 ML BAG 15 MCG IV (03:56)
[2024-02-05 04:03] LABS: Free T4 Free Thyroxine 0.67 ng/dL (0.82-1.77); Magnesium 2.2 mg/dL (1.7-2.3); Thyroid Stimulating Hormone 68.96 uIU/mL (0.27-4.20)
[2024-02-05 04:46] LABS: Anion Gap 14.1 (5-19); Potassium 4.1 mmol/L (3.5-5.1)
[2024-02-05] MEDS: dexmedeTOMIDine 0.9 % NaCL 400 MCG/100 ML PREMIX 10.57 MCG IV ×2 (05:54→15:11)
[2024-02-05] MEDS: dextrose 5%-sod chloride 0.9% 1,000 ML 75 ML IV (05:54)
[2024-02-05 07:08] LABS: Thyroglobulin AB 17 IU/mL (< or = 1); Thyroid Peroxidase Antobodies 10 IU/mL (<9)
[2024-02-05] MEDS: valproic acid 250 mg/5 mL UDC OG-TUBE (09:06)
[2024-02-05] MEDS: levothyroxine 100 mcg SDV IVP (09:06)
[2024-02-05] MEDS: gabapentin 300 mg Capsule NG-TUBE ×3 (09:06→21:43)
[2024-02-05] MEDS: blistex lip oint 7 gm Tube 1 APPLIC TOPICAL (09:24)
--- NOTE | 2024-02-05 09:58 | W.PM.NPUPNS ---
Subjective NPU Subjective: Staff reporting today that patient continues to be intubated and having somewhat less perceived irritability and agitation. Plan to continue in current direction with hopes of extubating later today or possibly tomorrow but as indicated. Mental Status Exam MSE Comments: This is a slender white female in hospital scrubs with limited grooming and eye contact. Absent dentition with some facial atrophy. No abnormal movements except for significant psychomotor agitation. Significant aimless behavior. Uncooperative with exam and moderate distress. Speech was nonexistent today as she was intubated Mood not described, affect agitated and confused. Thought process not evaluated and remainder of examination not performed given her being intubated and not alert. Vitals/I&O/Wt Last Vital Signs Temp 97.4 F L 02/05/24 04:00 Pulse 55 L 02/05/24 09:30 Resp 12 02/05/24 08:19 BP 102/66 02/05/24 09:30 Pulse Ox 97 02/05/24 09:30 O2 Del Method Room Air 02/02/24 16:30 FiO2 28 02/05/24 08:19 02/04/24 02/05/24 02/05/24 22:59 06:59 14:59 Intake Total 814.737 / 2235.654 1547.25 / 3782.904 Output Total 800 / 800 175 / 975 Balance 14.737 / 9534.935 2467.25 / 2807.904 Weight last 48 hrs Weight 58.75 kg Weight 58.967 kg Weight 60.371 kg Weight 59.5 kg Physical Exam Urinary Catheter Management: Yin: Cath Placed During This Visit: yes Reason for Continuing Indwelling Catheter: Accurate Measurement of Urinary Output in Critically Ill Patients Urinary Catheter Date of Insertion: 02/02/24 Urinary Catheter Time of Insertion: 17:31 Data NPU 02/06/24 03:30 02/06/24 03:30 Micro: Microbiology 02/03/24 16:15 Gram Stain - Final Cerebrospinal Fluid CSF Culture - Preliminary 02/02/24 17:20 Gram Stain - Final Sputum - Endotracheal Tube Aspirate Sputum Culture - Final Microbiology 02/03/24 16:15 Cerebrospinal Fluid Gram Stain - Final 02/03/24 16:15 Cerebrospinal Fluid CSF Culture - Preliminary 02/02/24 17:20 Sputum - Endotracheal Tube Aspirate Gram Stain - Final 02/02/24 17:20 Sputum - Endotracheal Tube Aspirate Sputum Culture - Final A&P Assessment and plan (1) Altered mental status: (2) Acute psychosis: (3) Hallucination: (4) Delirium: (5) Cannabis use disorder: (6) Hypothyroidism: (7) Severe hypothyroidism: Plan This is a 43-year-old white female unknown to inpatient or outpatient psychiatric services at [facility] with a reported history of psychiatric symptoms and treatments in the past prior to moving here who presents with delirium of unknown etiology with a UDS positive for cannabis and a slightly decreased sodium. 1. Identify medications and restart medications at appropriate doses. Agree with increasing Depakote to 500 p.o. twice daily and restarting thyroid medication as well as Neurontin. Also agree with use of Zyprexa, Haldol and benzodiazepines as needed to control agitation until we have a clear picture of what is driving her behavior. 2. Continue one-to-one and possible soft restraints given level of agitation even while intubated with low propofol given concerns for safety of herself and others. 3. Encourage individual, group and milieu therapy when she is ready to participate when returns to unit. 4. Encourage sober living treatment after discharge at the highest level care to which she is willing to commit. Concerns that cannot also be contributing factor to this presentation. 5. Obtain collateral information. 6. Continue on 96-hour hold. 7. Hospitalist consult requested. Patient given 3 rounds essentially a as needed medication. Each approximately an hour apart so over a 2-hour period, every 15 minute checks were escalated to 1-1, which was escalated to assisting the one-to-one, which was escalated to seclusion which could not be done safely, so that was escalated to restraints which could not maintain her without multiple staff and security around. Given that was the case and we did not have full information on scans excetra as well as her history consideration of ICU management which would be more controlled and less reactive was requested. Appreciate hospitalist consult as well as neurology. 8. Transferred to ICU for more controlled care. Transferred to [facility] to complete the thiamine IV administration. 9. Will continue to follow with likely transfer back to neuropsychiatric unit once medically stable. If this is thyroid induced psychosis recovery will still take time multiple likely best be managed in the psychiatric unit. Attestations NPU Medical Necessity Statement*: Inpatient psychiatric hospitalization is medically necessary and the clinically appropriate intervention at this time. We will monitor/initiate medications and make changes as indicated. She will be hospital for over 2 midnights. Likely length of stay 7 to 10 days. Coding Level of Care Code Acute Code for Chg Fwd Diagnoses Altered mental status R41.82 Acute psychosis F23 Hallucination R44.3 Delirium R41.0 Cannabis use disorder F12.90 Hypothyroidism E03.9 Severe hypothyroidism E03.9
--- NOTE | 2024-02-05 10:35 | XR_ITS ---
WS: [id number] Exam: XR chest 1V portable [id number] Date/Time of Exam: 02/05/2024 10:50 AM Reason For Exam: Intubated Comparison 04/04/2023. An endotracheal tube is in place ending about the level of T5. An NG tube extends into the body the s tomach. The lungs are fully inflated and clear. Normal cardiomediastinal silhouette for technique. Mu ltiple monitoring leads superimpose the chest. XR/XR chest 1V portable [id number] IMPRESSION: 1. ET tube in place ending at about T5 about 4 to 5 cm above the maru. The russell ngs are well ventilated. 2. NG tube in satisfactory location. No acute cardiopulmonary finding.
--- NOTE | 2024-02-05 11:26 | CTR_ITS ---
PROCEDURE INFORMATION: Exam: CT Abdomen And Pelvis Without Contrast Exam date and time: 02/05/2024 5:27 PM Age: 43 years old Clinical indication: Other: Russ TECHNIQUE: Imaging protocol: Computed tomography of the abdomen and pelvis without contrast. Radiation optimization: All CT scans at this facility use at least one of these dose optimization techniques: automated exposure control; mA and/or kV adjustment per patient size (includes targeted exams where dose is matched to clinical indication); or iterative reconstruction. COMPARISON: CR XR chest 1V portable [id number] 02/05/2024 10:52 AM RADIATION DOSE METRICS: Total DLP (mGy-cm): 469.62 FINDINGS: Pleural spaces: Trace bilateral pleural effusions with adjacent atelectasis. Heart: Heart size is within normal limits. There is no pericardial effusion or pericardial thickening. Liver: The liver is normal. No hepatic masses are identified. Gallbladder and biliary ducts: Hyperdense material within the gallbladder is nonspecific and may represent vicarious excretion of previously administered intravenous contrast. There is small pericholecystic fluid likely related to ascites. No definitive adjacent inflammatory changes. Pancreas: The pancreas is normal. Spleen: The spleen is normal. Adrenal glands: The adrenal glands are normal. Kidneys and ureters: No renal calcifications are identified. There is no hydronephrosis. Stomach and bowel: There is no large or small bowel obstruction. There is no evidence of bowel wall thickening. Appendix: A normal appendix is not identified. There is no secondary evidence of acute appendicitis. Intraperitoneal space: Small abdominopelvic ascites. Small retroperitoneal fluid. No definitive fluid collection. No pneumoperitoneum or definitive inflammatory change. Vasculature: Atherosclerotic calcifications of the aorta are present. No aneurysm is identified. Lymph nodes: No enlarged lymph nodes are identified. Urinary bladder: The bladder is decompressed and contains a Yin catheter. Reproductive: The uterus is present. Bones/joints: No acute osseous abnormalities are seen. Soft tissues: The soft tissues are within normal limits. Trace subcutaneous gas in the left anterior abdominal wall likely related to subcutaneous injection. CT/CT abdomen pelvis wo con [id number] IMPRESSION: 1. Small abdominopelvic ascites, retroperitoneal fluid, and pericholecystic fluid. 2. No focal acute pathology identified. 3. Other nonemergent findings above.
[2024-02-05] MEDS: fentaNYL 2,500 MCG/250 ML BAG IV (11:40)
--- NOTE | 2024-02-05 13:24 | USR_ITS ---
PROCEDURE INFORMATION: Exam: US Soft Tissue Head and Neck, Thyroid Exam date and time: 02/05/2024 6:06 PM Age: 43 years old Clinical indication: Abnormal findings; Other abnormal lab; Na; Additional info: Concern fir thyroiditis, please include duplex TECHNIQUE: Imaging protocol: Real-time ultrasound scan of the neck with image documentation. Exam focused on the thyroid. COMPARISON: CT head wo/w con [id number] 02/02/2024 6:47 PM FINDINGS: Limitations: Technologist notes limited exam, ICU patient with NG tube in place and under restraints with difficulty holding very still. Technologist notes not known if patient still has thyroid. Right thyroid lobe: Right lobe: Normal thyroid parenchyma is not well-defined. 3.4 x 1.2 x 1.4 cm with volume 2.9 mL. Heterogeneous. No focal abnormality/nodule. Mildly hypervascular. Left thyroid lobe: Left lobe: Normal thyroid parenchyma is not well defined. 2.4 x 1.5 x 1.1 cm with volume 1.8 mL. Heterogeneous. No focal abnormality/nodule. Mildly hypervascular. Isthmus: Isthmus not readily identified for measurement. US/US thyroid [id number] IMPRESSION: Limited exam as noted above, with normal thyroid parenchyma not well-defined. Otherwise suggestion of heterogeneous thyroid with decreased size and mild hypervascularity. No nodule identified.
[2024-02-05 14:14] LABS: Glucose Point of Care 131 mg/dL (70-110)
[2024-02-05] MEDS: levothyroxine 100 mcg SDV 25 MCG IVP (14:26)
[2024-02-05] MEDS: dextrose 5% 1,000 ML 75 ML IV (14:27)
[2024-02-05] MEDS: hydrocortisone 100 mg/2 mL SDV 50 MG IVP (14:27)
[2024-02-05 15:07] LABS: Anion Gap 12.6 (5-19); Blood Urea Nitrogen 10 mg/dL (6-20); Calcium 7.2 mg/dL (8.5-10.5); Carbon Dioxide 17 mmol/L (22-29); Chloride 121 mmol/L (98-107); Creatinine Clr Calc Pharmacy 19.8421; Glomerular Filtration Rate 16.2 mL/min (90-130); Glucose 246 mg/dL (65-115); Osmolality Calculated 311 mOsm/kg (285-295); Potassium 3.6 mmol/L (3.5-5.1); Sodium 147 mmol/L (136-145)
[2024-02-05 16:08] LABS: Bilirubin Urine Negative (Negative); Blood Urine 1+ (Negative); Glucose Urine UA Trace (Normal); Ketones Urine Negative (Negative); Leukocyte Esterase Urine Trace (Negative); Nitrate Urine Negative (Negative); Protein Urine 3+ (Negative); Specific Gravity, Urine 1.014 (1.005-1.030); Urine Appearance Cloudy (CLEAR); Urine Color Yellow (Yellow); Urobilinogen Urine 0.2 mg/dL (Negative); pH Urine 6.5 (5-7)
[2024-02-05 16:14] LABS: Add Urine Microscopic? YES; Bacteria Urine None Seen /hpf; Hyaline Casts Urine 8.67 /lpf; Squamous Epithelial Cell Urine 0-5 /hpf (0-5); WBC Urine 21-50 /hpf (0-5)
[2024-02-05 16:34] LABS: UA Slide Review UA Slide Review Perf
--- NOTE | 2024-02-05 16:34 | P.PN_ITS ---
Subjective 2 Subjective: No acute events overnight. Today morning on examination patient is more somnolent and sedated. Less episodes of agitation. Is following more directions on waking up. She is currently only on Versed of 3, Precedex at 0.6 and fentanyl of 100. Saturating well on tidal volume of 400, FiO2 30%, PEEP of 5. Vitals/I&O/Wt Last Vital Signs Temp 97.4 F L 02/05/24 04:00 Pulse 61 02/05/24 12:00 Resp 12 02/05/24 14:48 BP 98/62 02/05/24 12:00 Pulse Ox 100 02/05/24 14:48 O2 Del Method Room Air 02/02/24 16:30 FiO2 28 02/05/24 14:48 02/05/24 02/05/24 02/05/24 06:59 14:59 22:59 Intake Total 1547.25 / 3782.904 1371.517 / 1371.517 Output Total 175 / 975 Balance 1372.25 / 2807.904 1371.517 / 1371.517 Weight last 48 hrs Weight 58.513 kg Weight 58.75 kg Weight 58.967 kg Weight 60.371 kg Physical Exam 2 Narrative: General: Intubated, sedated, HEENT: PERRLA, pupils bilaterally equal and reactive Chest: Normal vesicular breath sounds, no added sounds, equal good air entry bilaterally CVS: S1-S2 regular, no murmurs, bradycardia, no gallops, no rubs Abdomen: Soft, nontender, no organomegaly, bowel sounds present Neuro: No focal deficits, no facial deformity, moving all limbs, thrashing in bed Urinary Catheter Management: Yin: Cath Placed During This Visit: yes Reason for Continuing Indwelling Catheter: Accurate Measurement of Urinary Output in Critically Ill Patients Urinary Catheter Date of Insertion: 02/02/24 Urinary Catheter Time of Insertion: 17:31 Data 02/05/24 02:51 02/05/24 14:02 Micro: Microbiology 02/03/24 16:15 Gram Stain - Final Cerebrospinal Fluid CSF Culture - Preliminary 02/02/24 17:20 Gram Stain - Final Sputum - Endotracheal Tube Aspirate Sputum Culture - Final A&P Assessment and plan (1) Acute psychosis: Unknown cause. Associated with some visual and auditory hallucination worsening over last 4 days. Concerns for inflicting self-harm in the Neuropsych Unit with punching of the cortes. Has missed her chronic home medications including gabapentin levothyroxine over last 2 weeks as per patient's . Given concerns for acute psychosis with patient inflicting self-harm, not being able to managed with multiple antipsychotics and benzodiazepines with concerns of possible seizures with multiple antipsychotics requirement which could lead to respiratory distress for now we will go ahead and intubate the patient so necessary investigation can be done at the earliest. Concerns for possible seizure with arching of the back and rolling of the eyes while in the Neuropsych Unit. Though no past history. No bowel or bladder accidents. Cannot rule out in setting of withdrawal from gabapentin. Respiratory viral panel negative, procalcitonin negative, prolactin elevated, beta-hCG negative, alcohol level, Tylenol level, salicylate level, repeat urine drug screen appreciated negative. Respiratory viral panel negative. Follow-up sputum culture. MRSA swab negative. 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 TSH found to be elevated more than 111. Appreciate low free T3 and free T4. Cortisol levels elevated. Appreciate repeat thyroid panel on 02/04. Improvement in TSH but still high, free T4 still low. Increase IV levothyroxine to 125 mcg daily Plan for repeat thyroid profile in AM. Monitor thyroid panel every 48 hours. CSF studies appreciated. Protein elevated to more than 190, glucose mildly elevated. Follow-up various CSF studies including VDRL, HSV, bio fire. Less likelihood of bacterial meningitis. Will continue IV ceftriaxone and 1 g daily for 5-day course. Given low concerns for viral meningitis for now and developing of ZAHRAA for now we will hold off on acyclovir. Follow-up HSV and VDRL results. If elevated will restart acyclovir as per creatinine clearance. Will monitor renal functions. Appreciate neurology consult. Further CSF studies sent accordingly. Continue sedation with fentanyl and Versed, Precedex. Propofol discontinued. Plan to wean Versed further, fentanyl to around 50 as possible. Continue with daily sedation medication as patient is more directable now. Hopefully can extubate within next 48 hours. Will plan to extubate on Precedex and low-dose fentanyl. DC standing valproic acid, Zyprexa. Make Dilaudid as needed. Continue with gabapentin 300 mg 3 times daily. Zyprexa Zydis 5 mg p.o. 3 times daily as needed, 5 mg IM every 6 hours as needed, Haldol 5 mg IM every 6 hours as needed for agitation not controlled by sedation. (2) Hypothyroidism: Severe hypothyroidism. 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 Appreciate repeat thyroid panel. Elevated thyroglobulin antibody, thyroid peroxidase antibody. Start on hydrocortisone 50 mg every 12 hourly. Check thyroid ultrasound. Start on sliding scale insulin as patient is on high-dose steroids. (3) Hallucination: As #1 (4) Acute kidney injury: Renal functions continue to trend up. Could be in setting of occasional episodes of hypotension versus due to acyclovir. Urine output low today. Check CT abdomen pelvis without contrast, repeat urinalysis, urine lites, urine creatinine, urine eosinophils. Medical reconciliation done for nephrotoxic drugs. Hold off on acyclovir for now. Continue to monitor intake, output. If continues to trend up we will consult nephrology. (5) Hypernatremia: Switch fluid to D5W at 75 cc/h. Start on free water flushes 250 every 6 hours. Repeat BMP in afternoon. (6) Bradycardia associated with anesthesia: Currently resolved. Bradycardic on high-dose fentanyl and propofol. Heart rate improving under decreasing sedation. Dopamine as needed. Target heart rate more than 45-50. Mean artery pressure target more than 65. Hold off on rate limiting medications. Appreciate echocardiogram results. (7) Severe hypothyroidism: Plan Patient's care discussed in detail with patient's over the phone. All the questions were answered. Currently on 96-hour hold. N.p.o. Full code Protonix OPD prophylaxis Heparin 5000 Q8 hourly for DVT prophylaxis. Care discussed in detail with patient and spouse over the phone, nursing staff at bedside, Dr. Rg over the phone. Thank you for involving us in care of Ms. Mckeon. Please call with any concerns. 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 The critical care time is as shown. This time is in addition to time spent performing any reported procedures but includes the following: [x] Data and vital sign review and interpretation [x] Patient assessment, examination and intervention [x] Documentation [x] Medication orders and management Critical Care Time (min): 70 Coding Level of Care Code Critical Care >/= 30 minutes Critical care time (in minutes): 70 The high probability of a clinically significant, sudden or life threatening deterioration, as referenced in this documentation, required my full and direct attention, intervention and personal management. The critical care time shown is in addition to time spent performing any reported separately billable procedures and includes the following: [x] Data and vital sign review and interpretation [x ] Patient assessment, examination and intervention [x] Medication orders and management [x] Patient/Family updates as able [x] Care Coordination and Documentation. Other Coding Information This patient has a high probability of clinically significant, sudden or life threatening deterioration of the patient's (neurological/pulmonary/cardiac/renal/ID/endocrine) systems required my full, direct attention, the highest level of physician preparedness for urgent intervention and personal management. I managed/supervised life or organ supporting interventions that required frequent physician assessment. I devoted my full attention in the ICU to the direct care of this patient for the period of time indicated above. Time I spent with family or surrogate(s) is included only if the patient was incapable of providing necessary information or participating in decision making. This time includes the following services provided: Telemetry review Mechanical Ventilation Hemodynamic interpretation, assessment and management Review and interpretation of CXR Review and interpretation of lab values Review and interpretation of microbiologic data and culture results Review of medications and administration Review and interpretation of Nutrition requirements and management Discussion of management with other consultants and services Clinical update to family members Diagnoses Acute psychosis F23 Hypothyroidism E03.9 Hallucination R44.3 Acute kidney injury N17.9 Hypernatremia E87.0 Bradycardia associated with anesthesia Severe hypothyroidism E03.9
[2024-02-05 16:35] LABS: Fine Granular Casts Urine 0-4 /lpf
[2024-02-05 16:36] LABS: Add Urine Culture? Yes
[2024-02-05 17:04] LABS: Potassium, Radom Urine 41 mmol/L; Urine Creatinine 86 mg/dL (28-217); Urine Random Chloride 73 mmol/L; Urine Random Sodium 77 mmol/L
[2024-02-05 17:41] LABS: Eosinophil Urine No Eosinophils Seen
[2024-02-05] MEDS: cefTRIAXone 1,000 mg SDV 1000 MG IVP (17:48)
[2024-02-05] MEDS: pantoprazole 40 mg SDV IVP (17:48)
[2024-02-05] MEDS: LORazepam 2 mg/mL INJ 1 mL IVP (18:55)
[2024-02-05] MEDS: midazolam hcl 100 MG/100 ML BAG IV (19:00)
[2024-02-05 19:47] LABS: Glucose Point of Care 133 mg/dL (70-110)
[2024-02-05 22:04] LABS: Alcohol Metabolites NEGATIVE ng/mL (<500)
[2024-02-06] VITALS (39 sets, daily range): BP systolic 103–169; BP diastolic 61–131; PULSE 42–89; RESP 14–35; TEMP 36.2–36.8; O2SAT 95–100
[2024-02-06 01:31] LABS: Glucose Point of Care 143 mg/dL (70-110)
[2024-02-06] MEDS: insulin lispro 100 unit/1 mL SUBCUT (01:43)
[2024-02-06] MEDS: heparin 5,000 unit/mL INJ 1 mL 5000 UNIT SUBCUT ×3 (01:43→16:47)
[2024-02-06] MEDS: hydrocortisone 100 mg/2 mL SDV 50 MG IVP (01:43)
[2024-02-06 04:00] LABS: Basophils % 0.1 %; Eosinophils # 0.1 10^3/uL (0.0-0.8); Eosinophils % 0.6 %; Hematocrit 33.8 % (36-47); Lymphocytes # 1.1 10^3/uL (0.8-4.8); Lymphocytes % 11.4 %; Mean Corpuscular Hemoglobin 30.4 pg (27-33); Mean Corpuscular Volume 95.2 fl (85-98); Mean Platelet Volume 11.1 fL (7.4-10.4); Monocytes # 0.6 10^3/uL (0.2-0.9); Monocytes % 5.5 %; Neutrophils # 8.18 10^3/uL (1.8-7.7); Neutrophils % 82.1 %; Nucleated Red Blood Cells % 0 %; Platelet Count 193 10^3/cmm (157-399); Red Blood Count 3.55 10^6/uL (3.85-5.65); Red Cell Distribution Width 13.7 % (12.1-15.1); White Blood Count 9.97 10^3/uL (3.29-11.43)
[2024-02-06 04:28] LABS: ABG PCO2 20.3 mmHg (35-45); ABG PH Result 7.48 (7.35-7.45); Arterial Blood Gas Hematocrit 34.3 % (37-47); Base Excess ABG -6.4 mmol/L (-2.0-2.0); Blood Gas Allen Test Pos; Blood Gas Sample Site Radial, right; Blood Gas Sample Type Arterial; Carboxyhemoglobin 0.6 %THgb (0.4-20.1); HCO3 ABG 15.2 mmol/L (22-26); HGB O2 Sat 98.9 % (95-100); Ionized Calcium Level - ABG 1.2 mmol/L (1.1-1.4); Methemoglobin < 0.0 % (0.4-1.5); Oxygen Device VENT; Oxygen Saturation ABG > 99.1; PO2 FiO2 Ratio Arterial Blood 425; Potassium Level - ABG 3.7 mmol/L (3.5-5.0); Total Hemoglobin 11.2 g/dL (12-16)
[2024-02-06 04:33] LABS: Alanine Aminotransferase 29 U/L (0-33); Albumin Level 3.1 g/dL (3.5-5.2); Alkaline Phosphatase 51 U/L (35-105); Anion Gap 14.6 (5-19); Aspartate Amino Transferase 74 U/L (0-32); Blood Urea Nitrogen 13 mg/dL (6-20); Calcium 7.9 mg/dL (8.5-10.5); Carbon Dioxide 16 mmol/L (22-29); Chloride 116 mmol/L (98-107); Creatinine Clr Calc Pharmacy 16.3476; Globulin 2.2 g/dL (1.3-4.6); Glomerular Filtration Rate 12.8 mL/min (90-130); Glucose 111 mg/dL (65-115); Osmolality Calculated 297 mOsm/kg (285-295); Potassium 3.6 mmol/L (3.5-5.1); Sodium 143 mmol/L (136-145); Total Bilirubin 0.2 mg/dL (0.15-1.2); Total Protein 5.3 g/dL (6.6-8.7)
--- NOTE | 2024-02-06 05:32 | PC.NURSE ---
Pt was very anxious at beginning of shift, pulling at restraints, kicking her legs, attempting to self extubate. Sedation adjusted as per protocol and pt calmed significantly. Rested most of the night, raised her eyebrows when spoken to, but had very little anxiety. Began weaning sedation this morning slowly. Patient awakens, attempts to speak around ET tube, makes purposeful movements and follows instructions, periodically pt turns her head and speaks purposefully when there is no person there, and has raised her middle finger toward the door also with no person present thus suggesting hallucinations. Has had episodes of increased anxiousness, but has been able to be verbally redirected. Will continue to wean sedation as per protocol.
[2024-02-06] MEDS: LORazepam 2 mg/mL INJ 1 mL IVP (07:20)
[2024-02-06 08:01] LABS: Glucose Point of Care 119 mg/dL (70-110)
--- NOTE | 2024-02-06 08:37 | XRR_ITS ---
PROCEDURE INFORMATION: Exam: XR Chest Exam date and time: 02/06/2024 8:57 AM Age: 43 years old Clinical indication: Shortness of breath; Additional info: Intubation TECHNIQUE: Imaging protocol: Radiologic exam of the chest. Views: 1 view. Total images: 1 COMPARISON: CR XR chest 1V portable [id number] 02/05/2024 10:52 AM FINDINGS: Tubes, catheters and devices: NG tube extends into the body of the stomach, side hole is near the GE junction. Endotracheal tube tip projects an estimated 5 cm above the maru. Lungs: Clear. Pleural spaces: No pleural effusion identified. Heart/Mediastinum: Cardiomediastinal silhouette is stable.. Bones/joints: No acute osseous abnormality identified. XR/XR chest 1V portable [id number] IMPRESSION: No acute cardiopulmonary abnormality identified.
[2024-02-06] MEDS: levothyroxine 100 mcg SDV 125 MCG IVP (08:46)
[2024-02-06] MEDS: gabapentin 300 mg Capsule NG-TUBE ×3 (08:46→20:23)
[2024-02-06] MEDS: FUROsemide 10 mg/mL SDV 10mL 60 MG IVP (09:18)
--- NOTE | 2024-02-06 10:11 | W.PM.NPUPNS ---
Subjective NPU Subjective: Staff reporting today that patient continues to be intubated and having no agitation or irritability. Plan to continue in current direction with hopes of extubating later today or possibly tomorrow but as indicated. Mental Status Exam MSE Comments: This is a slender white female in hospital scrubs with limited grooming and eye contact. Absent dentition with some facial atrophy. No abnormal movements except for significant psychomotor retardation. Uncooperative with exam in no acute distress. Speech was nonexistent today as she was intubated Mood not described, affect subdued. Thought process not evaluated and remainder of examination not performed given her being intubated and not alert. Vitals/I&O/Wt Last Vital Signs Temp 98.3 F 02/06/24 04:00 Pulse 48 L 02/06/24 09:00 Resp 14 02/06/24 07:37 BP 108/71 02/06/24 09:00 Pulse Ox 100 02/06/24 09:00 O2 Del Method Room Air 02/02/24 16:30 FiO2 28 02/06/24 07:37 02/05/24 02/06/24 02/06/24 22:59 06:59 14:59 Intake Total 62.704 / 1434.221 100.031 / 1534.252 Output Total 100 / 100 Balance -37.296 / 1334.221 100.031 / 1434.252 Weight last 48 hrs Weight 59.874 kg Weight 58.513 kg Weight 58.75 kg Weight 58.967 kg Physical Exam Urinary Catheter Management: Yin: Cath Placed During This Visit: yes Reason for Continuing Indwelling Catheter: Accurate Measurement of Urinary Output in Critically Ill Patients Urinary Catheter Date of Insertion: 02/02/24 Urinary Catheter Time of Insertion: 17:31 Data NPU 02/06/24 03:30 02/06/24 03:30 Micro: Microbiology 02/03/24 16:15 Gram Stain - Final Cerebrospinal Fluid CSF Culture - Preliminary Microbiology 02/03/24 16:15 Cerebrospinal Fluid Gram Stain - Final 02/03/24 16:15 Cerebrospinal Fluid CSF Culture - Preliminary A&P Assessment and plan (1) Altered mental status: (2) Acute psychosis: (3) Hallucination: (4) Delirium: (5) Cannabis use disorder: (6) Hypothyroidism: (7) Severe hypothyroidism: Plan This is a 43-year-old white female unknown to inpatient or outpatient psychiatric services at [facility] with a reported history of psychiatric symptoms and treatments in the past prior to moving here who presents with delirium of unknown etiology with a UDS positive for cannabis and a slightly decreased sodium. 1. Identify medications and restart medications at appropriate doses. Agree with increasing Depakote to 500 p.o. twice daily and restarting thyroid medication as well as Neurontin. Also agree with use of Zyprexa, Haldol and benzodiazepines as needed to control agitation until we have a clear picture of what is driving her behavior. 2. Continue one-to-one and possible soft restraints given level of agitation even while intubated with low propofol given concerns for safety of herself and others. 3. Encourage individual, group and milieu therapy when she is ready to participate when returns to unit. 4. Encourage sober living treatment after discharge at the highest level care to which she is willing to commit. Concerns that cannot also be contributing factor to this presentation. 5. Obtain collateral information. 6. Continue on 96-hour hold. 7. Hospitalist consult requested. Patient given 3 rounds essentially a as needed medication. Each approximately an hour apart so over a 2-hour period, every 15 minute checks were escalated to 1-1, which was escalated to assisting the one-to-one, which was escalated to seclusion which could not be done safely, so that was escalated to restraints which could not maintain her without multiple staff and security around. Given that was the case and we did not have full information on scans excetra as well as her history consideration of ICU management which would be more controlled and less reactive was requested. Appreciate hospitalist consult as well as neurology. 8. Transferred to ICU for more controlled care. Transferred to [facility] to complete the thiamine IV administration. 9. Will continue to follow with likely transfer back to neuropsychiatric unit once medically stable. If this is thyroid induced psychosis recovery will still take time multiple likely best be managed in the psychiatric unit. Attestations NPU Medical Necessity Statement*: Inpatient psychiatric hospitalization is medically necessary and the clinically appropriate intervention at this time. We will monitor/initiate medications and make changes as indicated. She will be hospital for over 2 midnights. Likely length of stay 7 to 10 days. Coding Level of Care Code Acute Code for [facility] Fwd Diagnoses Altered mental status R41.82 Acute psychosis F23 Hallucination R44.3 Delirium R41.0 Cannabis use disorder F12.90 Hypothyroidism E03.9 Severe hypothyroidism E03.9
--- NOTE | 2024-02-06 11:40 | XRR_ITS ---
PROCEDURE INFORMATION: Exam: XR Right Knee Exam date and time: 02/06/2024 2:55 PM Age: 43 years old Clinical indication: Pain; Knee; Right; Additional info: Knee pain TECHNIQUE: Imaging protocol: Radiologic exam of the right knee. Views: 1 or 2 views. Total images: 2 COMPARISON: No relevant prior studies available. FINDINGS: Bones/joints: There is focal deformity of the proximal shaft of the right fibula, approximately 9 cm beyond the fibular head. The configuration is suggestive of sequelae of healed fracture, but recommend correlation with a clinical history for confirmation. As visualized there is no acute fracture or dislocation noted in the knee. No advanced degenerative changes are evident. No definite joint effusion. Soft tissues: No acute soft tissue abnormality identified. XR/XR knee RT 1-2V [id number] IMPRESSION: 1. No acute appearing osseous abnormality identified. 2. Focal deformity of the right proximal fibular shaft, most likely sequelae of remote healed fracture but recommend correlation with clinical history for confirmation.
[2024-02-06 12:05] LABS: Glucose Point of Care 106 mg/dL (70-110)
[2024-02-06] MEDS: hydrocortisone 100 mg/2 mL SDV 60 MG IVP ×2 (12:07→16:48)
--- NOTE | 2024-02-06 12:11 | PC.NURSE ---
Extubated per RT, Dr. Alexander at bedside
[2024-02-06] MEDS: fentaNYL 25 mcg Patch 1 PATCH TRANSDERMA (12:20)
[2024-02-06] MEDS: dexmedeTOMIDine 0.9 % NaCL 400 MCG/100 ML PREMIX IV (14:13)
--- NOTE | 2024-02-06 14:26 | P.PN_ITS ---
Subjective 2 Subjective: No acute events overnight. Today morning patient sedation was turned off and was only on Precedex at 0.3. Patient was awake and alert. She was alert to self, was able to follow directions. Was extubated to room air after appropriate RSBI. Urine output slightly improving. Has remained hemodynamically stable and afebrile. Off pressors. Postextubation patient is able to tell that she is on thyroid medication for the longest but has not taken recently, complaining of pain in her right knee which has been chronic, complaining of pain in the neck. Vitals/I&O/Wt Last Vital Signs Temp 98.3 F 02/06/24 04:00 Pulse 69 02/06/24 12:00 Resp 14 02/06/24 07:37 BP 142/83 02/06/24 12:00 Pulse Ox 100 02/06/24 11:00 O2 Del Method Room Air 02/02/24 16:30 FiO2 28 02/06/24 07:37 02/05/24 02/06/24 02/06/24 22:59 06:59 14:59 Intake Total 62.704 / 1434.221 100.031 / 1534.252 111.866 / 111.866 Output Total 100 / 100 Balance -37.296 / 1334.221 100.031 / 1434.252 111.866 / 111.866 Weight last 48 hrs Weight 59.874 kg Weight 58.513 kg Weight 58.75 kg Weight 58.967 kg Physical Exam 2 Narrative: General: Anxious, extubated, alert and oriented to self, place with occasional episodes of agitation HEENT: PERRLA, pupils bilaterally equal and reactive Chest: Normal vesicular breath sounds, no added sounds, equal good air entry bilaterally CVS: S1-S2 regular, no murmurs, bradycardia, no gallops, no rubs Abdomen: Soft, nontender, no organomegaly, bowel sounds present Neuro: No focal deficits, no facial deformity, moving all limbs, thrashing in bed Urinary Catheter Management: Yin: Cath Placed During This Visit: yes Reason for Continuing Indwelling Catheter: Accurate Measurement of Urinary Output in Critically Ill Patients Urinary Catheter Date of Insertion: 02/02/24 Urinary Catheter Time of Insertion: 17:31 Data 02/06/24 03:30 02/06/24 03:30 Micro: Microbiology 02/03/24 16:15 Gram Stain - Final Cerebrospinal Fluid CSF Culture - Final A&P Assessment and plan (1) Acute psychosis: Unknown cause. Associated with some visual and auditory hallucination worsening over last 4 days. Concerns for inflicting self-harm in the Neuropsych Unit with punching of the cortes. Has missed her chronic home medications including gabapentin levothyroxine over last 2 weeks as per patient's . Given concerns for acute psychosis with patient inflicting self-harm, not being able to managed with multiple antipsychotics and benzodiazepines with concerns of possible seizures with multiple antipsychotics requirement which could lead to respiratory distress for now we will go ahead and intubate the patient so necessary investigation can be done at the earliest. Concerns for possible seizure with arching of the back and rolling of the eyes while in the Neuropsych Unit. Though no past history. No bowel or bladder accidents. Cannot rule out in setting of withdrawal from gabapentin. Respiratory viral panel negative, procalcitonin negative, prolactin elevated, beta-hCG negative, alcohol level, Tylenol level, salicylate level, repeat urine drug screen appreciated negative. Respiratory viral panel negative. Follow-up sputum culture. MRSA swab negative. Extubated on 02/05 to room air. 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 TSH found to be elevated more than 111. Appreciate low free T3 and free T4. Cortisol levels elevated. Appreciate improvement in thyroid profile. Continue with IV levothyroxine at 125 mcg daily. Repeat thyroid profile every 48 hours. CSF studies appreciated. Protein elevated to more than 190, glucose mildly elevated. Follow-up various CSF studies including VDRL, HSV, bio fire. Less likelihood of bacterial meningitis. Will continue IV ceftriaxone and 1 g daily for 5-day course. Given low concerns for viral meningitis for now and developing of ZAHRAA for now we will hold off on acyclovir. Follow-up HSV and VDRL results. If elevated will restart acyclovir as per creatinine clearance. Will monitor renal functions. Appreciate neurology consult. Further CSF studies sent accordingly. Patient extubated. Hold off on any further sedation with fentanyl and Versed. Continue with Precedex as needed. Continue with olanzapine 5 mg IM every 6 hour as needed for agitation. Dilaudid 1 mg IV every 4 hours as needed for pain. Switch to fentanyl patch 25 mcg. Speech evaluation. Advance diet accordingly. Continue with gabapentin 300 mg 3 times daily. Zyprexa Zydis 5 mg p.o. 3 times daily as needed, 5 mg IM every 6 hours as needed, Haldol 5 mg IM every 6 hours as needed for agitation not controlled by sedation. (2) Hypothyroidism: Severe hypothyroidism. 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 Appreciate repeat thyroid panel improvement. Elevated thyroglobulin antibody, thyroid peroxidase antibody. Change dose of hydrocortisone to 60 mg every 6 hourly which is going to match with prednisone 1 mg/kg body weight daily. Appreciate thyroid ultrasound with concerns for hypervascularity. Start on sliding scale insulin as patient is on high-dose steroids. (3) Hallucination: As #1 (4) Acute kidney injury: Renal function stable today. Continue to remain elevated but stable. Most likely elevated in setting of occasional hypotension with bradycardia versus acyclovir. Appreciate repeat urinalysis. Will repeat UA again today. Repeat urine lites and urine creatinine. Holding off on acyclovir. Urine output improving. 60 mg of IV Lasix once. Strict input charting, daily weights. Repeat BMP in afternoon. If continues to trend up we will consult nephrology. (5) Hypernatremia: Resolved. Continue D5W at 75 cc/h for now. Repeat BMP in afternoon. (6) Bradycardia associated with anesthesia: Currently resolved. Bradycardic most likely due to high-dose fentanyl and propofol. Heart rate improving under decreasing sedation. Dopamine as needed. Target heart rate more than 45-50. Mean artery pressure target more than 65. Hold off on rate limiting medications. Appreciate echocardiogram results. (7) Severe hypothyroidism: Plan Patient's care discussed in detail with patient's over the phone. All the questions were answered. Currently on 96-hour hold. Advance as per speech evaluation. Full code Protonix OPD prophylaxis Heparin 5000 Q8 hourly for DVT prophylaxis. Care discussed in detail with patient and spouse over the phone, nursing staff at bedside, Dr. Rg over the phone. Thank you for involving us in care of Ms. Mckeon. Please call with any concerns. Attestations 2 Medical Necessity Statement*: Requires further hospitalization for management of acute psychosis in setting of severe hypothyroidism with concerns for Kevin's encephalopathy versus myxedema psychosis while further etiologies including meningitis/encephalitis are ruled out, acute kidney injury, respiratory failure postextubation Critical Care Time: The high probability of a clinically significant, sudden or life threatening deterioration of the patient's [endocrine, pulmonary, renal, neurological, psychiatric] system(s) required my full and direct attention, intervention and personal management. The critical care time is as shown. This time is in addition to time spent performing any reported procedures but includes the following: [x] Data and vital sign review and interpretation [x] Patient assessment, examination and intervention [x] Documentation [x] Medication orders and management Critical Care Time (min): 90 Coding Level of Care Code Critical Care >/= 30 minutes Critical care time (in minutes): 90 The high probability of a clinically significant, sudden or life threatening deterioration, as referenced in this documentation, required my full and direct attention, intervention and personal management. The critical care time shown is in addition to time spent performing any reported separately billable procedures and includes the following: [x] Data and vital sign review and interpretation [x ] Patient assessment, examination and intervention [x] Medication orders and management [x] Patient/Family updates as able [x] Care Coordination and Documentation. Other Coding Information This patient has a high probability of clinically significant, sudden or life threatening deterioration of the patient's (neurological/pulmonary/cardiac/renal/ID/endocrine) systems required my full, direct attention, the highest level of physician preparedness for urgent intervention and personal management. I managed/supervised life or organ supporting interventions that required frequent physician assessment. I devoted my full attention in the ICU to the direct care of this patient for the period of time indicated above. Time I spent with family or surrogate(s) is included only if the patient was incapable of providing necessary information or participating in decision making. This time includes the following services provided: Telemetry review Mechanical Ventilation Hemodynamic interpretation, assessment and management Review and interpretation of CXR Review and interpretation of lab values Review and interpretation of microbiologic data and culture results Review of medications and administration Review and interpretation of Nutrition requirements and management Discussion of management with other consultants and services Clinical update to family members Diagnoses Acute psychosis F23 Hypothyroidism E03.9 Hallucination R44.3 Acute kidney injury N17.9 Hypernatremia E87.0 Bradycardia associated with anesthesia Severe hypothyroidism E03.9
[2024-02-06 15:52] LABS: Blood Urea Nitrogen 15 mg/dL (6-20); Calcium 8.4 mg/dL (8.5-10.5); Carbon Dioxide 15 mmol/L (22-29); Chloride 112 mmol/L (98-107); Creatinine Clr Calc Pharmacy 12.9419; Glomerular Filtration Rate 9.8 mL/min (90-130); Glucose 113 mg/dL (65-115); Osmolality Calculated 294 mOsm/kg (285-295); Sodium 141 mmol/L (136-145)
--- NOTE | 2024-02-06 16:16 | PC.NURSE ---
patient refusing VS leads but is cooperative with care
[2024-02-06] MEDS: pantoprazole 40 mg SDV IVP (16:47)
[2024-02-06] MEDS: cefTRIAXone 1,000 mg SDV 1000 MG IVP (16:47)
--- NOTE | 2024-02-06 19:28 | PM.CONSULT ---
Providers/Reason For Consult Consulting Physician/Specialty*: [facility]/Nephrology Reason for Consult*: ZAHRAA Attending Physician: Delgado Rg MD History of Present Illness History of Present Illness Mehdi Mckeon is a 43 year old female patient is a 43-year-old female who was admitted to the hospital 02/12/2024 due to visual and auditory hallucinations, she was initially admitted to the neuropsychiatric unit. There was initial concern for acute psychosis versus seizures. Patient has a history of hypothyroidism TSH was found to be 111 and she was also thought to have possible myxedema psychosis. Patient received IV levothyroxine. Patient was intubated for airway protection and was admitted to ICU. Patient was on pressors but are currently off pressors for the last 12 hours. She is also extubated today. Patient also had lumbar puncture and CSF studies have showed increased protein level patient received IV Rocephin as well as acyclovir. Patient's creatinine was 0.7 on presentation progressively gotten worse to 4.8 today. Also has metabolic acidosis, with bicarbonate level of 15. Patient still remains confused. Patient received IV contrast CT 02/12/2024. Review of Systems Narrative: cannot obtain full review of system assessment. Medications/Allergies Home Medications Medication Instructions Recorded Confirmed Last Taken Type buprenorphine 8 mg-naloxone 2 mg 1 film buccal BID 02/02/24 02/02/24 02/01/24 History sublingual film dicyclomine 20 mg tablet 20 mg PO TID 02/02/24 02/02/24 Unknown History gabapentin 300 mg capsule See Rx Instructions .Route .COMPLEX 02/02/24 02/02/24 Unknown History thyroid (pork) 15 mg tablet (GENERATOR SWITCH[employer]ARD [employer]PERATOR 15 mg PO DAILY 02/02/24 02/02/24 02/01/24 History Thyroid) thyroid (pork) 90 mg tablet (GENERATOR SWITCHBOARD OPERATOR 90 mg PO DAILY 02/02/24 02/02/24 02/01/24 History Thyroid) Allergies Allergy/AdvReac Type Severity Reaction Status Date / Time Iodinated Contrast Media Allergy Mild ADR-Abdominal Verified 02/02/24 17:20 Pain Anesthetics - Amide Type - Allergy Unknown Verified 02/02/24 13:52 Select A bee venom protein (honey bee) Allergy Unknown Verified 02/02/24 13:43 codeine Allergy Unknown Verified 02/02/24 13:52 ketamine Allergy Unknown Verified 02/02/24 13:53 trazodone Allergy Unknown Verified 02/02/24 17:05 Current Medications Generic Name Dose Route Start Last Admin Trade Name Freq PRN Reason Stop Dose Admin Camphor/Menthol/Phenol 1 applic 02/02/24 13:34 02/05/24 09:24 Blistex Lip Oint 7 Gm Tube TOPICAL 1 applic Q1H PRN Administration DRYNESS Ceftriaxone Sodium 1,000 mg 02/04/24 17:30 02/06/24 16:47 Ceftriaxone 1,000 Mg Sdv IVP 1,000 mg Q24H NELY Administration Protocol Fentanyl 1 patch 02/06/24 12:00 02/06/24 12:20 Fentanyl 25 Mcg Patch TRANSDERMA 1 patch Q72H NELY Administration Gabapentin 300 mg 02/02/24 21:00 02/06/24 14:13 Gabapentin 300 Mg Capsule NG-TUBE 300 mg TID NELY Administration Heparin Sodium (Porcine) 5,000 unit 02/02/24 17:45 02/06/24 16:47 Heparin 5,000 Unit/Ml Inj 1 Ml SUBCUT 5,000 unit Q8H NELY Administration Hydrocortisone Sodium Succinate 60 mg 02/06/24 11:45 02/06/24 16:48 Hydrocortisone 100 Mg/2 Ml Sdv IVP 60 mg Q6H NELY Administration Dexmedetomidine/Sodium Chloride 400 mcg in 100 mls @ 0 mls/hr 02/04/24 13:45 02/06/24 19:03 Precedex IV 0 mcg/kg/hr .Q0M NELY 0 mls/hr Titration Protocol Per Protocol Norepinephrine Bitartrate 4 mg in 250 mls @ 0 mls/hr 02/04/24 15:45 02/05/24 07:00 Levophed IV 0 mcg/min .Q0M NELY 0 mls/hr Titration Protocol Per Protocol Dextrose 1,000 mls @ 75 mls/hr 02/05/24 13:30 02/06/24 19:09 D5w IV Not Given .[id number] NELY Insulin Human Lispro 0 unit 02/05/24 13:30 02/06/24 12:21 Insulin Lispro 100 Unit/1 Ml SUBCUT Not Given Q6H [facility] Protocol Levothyroxine Sodium 125 mcg 02/06/24 09:00 02/06/24 08:46 Levothyroxine 100 Mcg Sdv IVP 125 mcg DAILY NELY Administration Olanzapine 5 mg 02/03/24 09:43 02/03/24 22:20 Olanzapine 10 Mg Vial IM 5 mg Q6H PRN Administration SEVERE AGITATION Pantoprazole Sodium 40 mg 02/02/24 17:27 02/06/24 16:47 Pantoprazole 40 Mg Sdv IVP 40 mg Q24H NELY Administration PFSH Acute PFSH: Medical History (Updated 02/05/24 @ 16:41 by Goldy Alexander MD) Hypothyroidism Surgical History (Updated 02/02/24 @ 18:21 by Goldy Alexander MD) No pertinent past surgical history Social History (Updated 02/02/24 @ 18:22 by Goldy Alexander MD) Smoking and tobacco/nicotine status: unknown if used tobacco/nicotine Alcohol intake: unknown Substance/Drug Use: never Household members: spouse Housing: House Marital status: Vitals/I&O/Wt Last Vital Signs Temp 98.3 F 02/06/24 04:00 Pulse 55 L 02/06/24 17:15 Resp 14 02/06/24 07:37 BP 114/78 02/06/24 15:00 Pulse Ox 98 02/06/24 16:00 O2 Del Method Room Air 02/02/24 16:30 FiO2 28 02/06/24 07:37 02/06/24 02/06/24 02/06/24 06:59 14:59 22:59 Intake Total 100.031 / 1534.252 111.866 / 111.866 21.895 / 133.761 Output Total 1000 / 1000 Balance 100.031 / 1434.252 111.866 / 111.866 -978.105 / -866.239 Weight last 48 hrs Weight 59.874 kg Weight 59.874 kg Weight 58.513 kg Weight 58.75 kg Physical Exam Narrative: Awake, confused, no distress S1-S2 regular rate and rhythm per report Lungs clear per report No pedal edema Urinary Catheter Management: Yin: Cath Placed During This Visit: yes Reason for Continuing Indwelling Catheter: Accurate Measurement of Urinary Output in Critically Ill Patients Urinary Catheter Date of Insertion: 02/02/24 Urinary Catheter Time of Insertion: 17:31 Data 02/06/24 03:30 02/06/24 14:53 Micro: Microbiology 02/03/24 16:15 Mycobacterial Smear - Preliminary Cerebrospinal Fluid 02/03/24 16:15 Gram Stain - Final Cerebrospinal Fluid CSF Culture - Final A&P Assessment and plan (1) Acute kidney injury: 1. Acute kidney injury: Baseline creatinine was normal on presentation creatinine is up to 4.8 today associated with metabolic acidosis: Etiology likely ATN in the setting of hypotension and also medication induced-IV Acyclovir and IV contrast exposure.. No acute indication for dialysis, patient is making urine, continue to monitor renal function closely 2. Metabolic acidosis: Will give Bicitra orally 3. History of hypothyroidism with myxedema and psychosis: Status post IV levothyroxine 4. Acute respiratory failure: Extubated now 5. Acute psychosis and seizures, improved now Patient evaluated using audiovisual cart. Time spent 40 minutes. Consult Attestations Medical Necessity Statement: per medicine team Coding Level of Care Code Acute Code for Chg Fwd Diagnoses Acute kidney injury N17.9
--- NOTE | 2024-02-06 20:01 | PC.NURSE ---
Restraints: Restraints off on arrival to shift, pt is impulsive but able to follow safety instructions at this time. 1:1 sitter at bedside.
[2024-02-06 20:18] LABS: Glucose Point of Care 114 mg/dL (70-110)
[2024-02-06] MEDS: citric acid-sodium citrate 30 mL UDC 60 ML PO (20:20)
[2024-02-06] MEDS: hyDROXYzine 25 mg Capsule 50 MG PO (20:50)
--- NOTE | 2024-02-06 21:17 | PC.NURSE ---
Addendum entered by Letitia Goodrich RN 02/06/24 21:25: I witnessed waste as listed below: Original Note: Wasted Meds: On arrival to shift @1900, Versed, Fentanyl, a Propofol in pt room- pumps off and not connected to pt. Per shift report w/ IRENE Medina meds were stopped on dayshift. 45ml Versed, 65ml Fentanyl , and 58ml Propofol wasted w/ IRENE Dong.
[2024-02-06] MEDS: OLANZapine 5 mg ODT PO (22:04)
[2024-02-06] MEDS: dextrose 5% 1,000 ML 75 ML IV (22:30)
[2024-02-07] VITALS (29 sets, daily range): BP systolic 90–142; BP diastolic 60–91; PULSE 42–96; RESP 10–28; TEMP 36.8–36.9; O2SAT 97–98
[2024-02-07] MEDS: hydrocortisone 100 mg/2 mL SDV 60 MG IVP ×4 (00:01→16:48)
[2024-02-07] MEDS: heparin 5,000 unit/mL INJ 1 mL 5000 UNIT SUBCUT ×3 (01:17→16:49)
[2024-02-07 01:20] LABS: Glucose Point of Care 192 mg/dL (70-110)
[2024-02-07] MEDS: blistex lip oint 7 gm Tube 1 APPLIC TOPICAL (02:13)
[2024-02-07] MEDS: bisacodyl 5 mg Tablet 10 MG PO (05:36)
[2024-02-07 05:57] LABS: Basophils % 0.1 %; Hematocrit 33.8 % (36-47); Lymphocytes # 0.8 10^3/uL (0.8-4.8); Lymphocytes % 5.1 %; Mean Corpuscular HGB Conc 31.4 g/dL (30-55); Mean Corpuscular Hemoglobin 30.2 pg (27-33); Mean Corpuscular Volume 96.3 fl (85-98); Mean Platelet Volume 11.5 fL (7.4-10.4); Monocytes # 0.5 10^3/uL (0.2-0.9); Monocytes % 3.4 %; Neutrophils # 14.12 10^3/uL (1.8-7.7); Neutrophils % 90.9 %; Nucleated Red Blood Cells % 0 %; Platelet Count 196 10^3/cmm (157-399); Red Blood Count 3.51 10^6/uL (3.85-5.65); Red Cell Distribution Width 13.9 % (12.1-15.1); White Blood Count 15.54 10^3/uL (3.29-11.43)
[2024-02-07 06:25] LABS: Alanine Aminotransferase 45 U/L (0-33); Albumin Level 3.2 g/dL (3.5-5.2); Alkaline Phosphatase 48 U/L (35-105); Anion Gap 19.8 (5-19); Aspartate Amino Transferase 99 U/L (0-32); Blood Urea Nitrogen 22 mg/dL (6-20); Calcium 8.4 mg/dL (8.5-10.5); Carbon Dioxide 16 mmol/L (22-29); Chloride 106 mmol/L (98-107); Creatinine Clr Calc Pharmacy 12.7234; Globulin 2.7 g/dL (1.3-4.6); Glomerular Filtration Rate 9.6 mL/min (90-130); Glucose 149 mg/dL (65-115); Osmolality Calculated 292 mOsm/kg (285-295); Potassium 3.8 mmol/L (3.5-5.1); Sodium 138 mmol/L (136-145); Total Bilirubin 0.2 mg/dL (0.15-1.2); Total Protein 5.9 g/dL (6.6-8.7)
[2024-02-07 07:57] LABS: Glucose Point of Care 156 mg/dL (70-110)
--- NOTE | 2024-02-07 08:00 | P.PN_ITS ---
Subjective 2 Subjective: on room air pt confused Medications: Reviewed: Yes Vitals/I&O/Wt Last Vital Signs Temp 98.2 F 02/07/24 04:11 Pulse 75 02/07/24 06:00 Resp 23 H 02/07/24 06:00 BP 113/72 02/07/24 06:00 Pulse Ox 98 02/07/24 04:10 O2 Del Method Room Air 02/07/24 06:00 FiO2 28 02/06/24 07:37 02/06/24 02/07/24 02/07/24 22:59 06:59 14:59 Intake Total 1682.812 / 6357.279 8264.75 / 3301.428 71.25 / 71.25 Output Total 1000 / 1000 575 / 1575 Balance 682.812 / 794.678 931.75 / 1726.428 71.25 / 71.25 Weight last 48 hrs Weight 60.373 kg Weight 59.874 kg Weight 59.874 kg Weight 58.513 kg Physical Exam 2 Narrative: Awake, confused, no distress S1-S2 regular rate and rhythm per report Lungs clear per report No pedal edema Urinary Catheter Management: Yin: Cath Placed During This Visit: yes Reason for Continuing Indwelling Catheter: Accurate Measurement of Urinary Output in Critically Ill Patients Urinary Catheter Date of Insertion: 02/02/24 Urinary Catheter Time of Insertion: 17:31 Data 02/07/24 05:36 02/07/24 05:36 Micro: Microbiology 02/03/24 16:15 Mycobacterial Smear - Preliminary Cerebrospinal Fluid 02/03/24 16:15 Gram Stain - Final Cerebrospinal Fluid CSF Culture - Final A&P Assessment and plan (1) Acute kidney injury: 1. Acute kidney injury: Baseline creatinine was normal on presentation creatinine is up to 4.9 today associated with metabolic acidosis: Etiology likely ATN in the setting of hypotension and also medication induced-IV Acyclovir and IV contrast exposure.. No acute indication for dialysis, patient is making urine, continue to monitor renal function closely 2. Metabolic acidosis: Will give Bicitra orally 3. History of hypothyroidism with myxedema and psychosis: Status post IV levothyroxine 4. Acute respiratory failure: Extubated now 5. Acute psychosis and seizures, improved now Patient evaluated using audiovisual cart. Time spent 40 minutes. Attestations 2 Medical Necessity Statement*: per mediicne team Coding Level of Care Code Acute Code for Chg Fwd Diagnoses Acute kidney injury N17.9
[2024-02-07] MEDS: levothyroxine 100 mcg SDV 125 MCG IVP (08:13)
[2024-02-07] MEDS: gabapentin 300 mg Capsule NG-TUBE ×2 (08:13→15:34)
[2024-02-07] MEDS: insulin lispro 100 unit/1 mL SUBCUT (08:14)
[2024-02-07] MEDS: hyDROXYzine 25 mg Capsule 50 MG PO (08:20)
[2024-02-07 08:44] LABS: Cytomegalovirus DNA,QL RT PCR Not Detected (Not Detected); Cytomegalovirus Source *CSF
[2024-02-07] MEDS: sodium chloride 0.45% 1,000 ML 50 ML IV (11:02)
[2024-02-07 12:38] LABS: Glucose Point of Care 115 mg/dL (70-110)
--- NOTE | 2024-02-07 15:06 | P.PN_ITS ---
Subjective 2 Subjective: No acute events overnight. Patient has remained calm. Has remained hemodynamically stable and afebrile. Remains on room air. Urine output slightly improving. states she is hungry. Asking for food. Asking when can her family visit with her. Vitals/I&O/Wt Last Vital Signs Temp 98.2 F 02/07/24 04:11 Pulse 76 02/07/24 14:00 Resp 26 H 02/07/24 14:00 BP 120/91 02/07/24 14:00 Pulse Ox 98 02/07/24 04:10 O2 Del Method Room Air 02/07/24 06:00 FiO2 28 02/06/24 07:37 02/07/24 02/07/24 02/07/24 06:59 14:59 22:59 Intake Total 1506.75 / 3301.428 311.25 / 311.25 Output Total 575 / 1575 Balance 931.75 / 1726.428 311.25 / 311.25 Weight last 48 hrs Weight 60.373 kg Weight 59.874 kg Weight 59.874 kg Physical Exam 2 Narrative: General: Less anxious, alert and oriented to self, place with occasional episodes of agitation HEENT: PERRLA, pupils bilaterally equal and reactive Chest: Normal vesicular breath sounds, no added sounds, equal good air entry bilaterally CVS: S1-S2 regular, no murmurs, bradycardia, no gallops, no rubs Abdomen: Soft, nontender, no organomegaly, bowel sounds present Neuro: No focal deficits, no facial deformity, moving all limbs, thrashing in bed Urinary Catheter Management: Yin: Cath Placed During This Visit: yes Reason for Continuing Indwelling Catheter: Accurate Measurement of Urinary Output in Critically Ill Patients Urinary Catheter Date of Insertion: 02/02/24 Urinary Catheter Time of Insertion: 17:31 Data 02/07/24 05:36 02/07/24 05:36 Micro: Microbiology 02/03/24 16:15 Mycobacterial Smear - Preliminary Cerebrospinal Fluid 02/03/24 16:15 Gram Stain - Final Cerebrospinal Fluid CSF Culture - Final A&P Assessment and plan (1) Acute psychosis: Unknown cause. Associated with some visual and auditory hallucination worsening over last 4 days. Concerns for inflicting self-harm in the Neuropsych Unit with punching of the cortes. Has missed her chronic home medications including gabapentin levothyroxine over last 2 weeks as per patient's . Given concerns for acute psychosis with patient inflicting self-harm, not being able to managed with multiple antipsychotics and benzodiazepines with concerns of possible seizures with multiple antipsychotics requirement which could lead to respiratory distress for now we will go ahead and intubate the patient so necessary investigation can be done at the earliest. Concerns for possible seizure with arching of the back and rolling of the eyes while in the Neuropsych Unit. Though no past history. No bowel or bladder accidents. Cannot rule out in setting of withdrawal from gabapentin. Respiratory viral panel negative, procalcitonin negative, prolactin elevated, beta-hCG negative, alcohol level, Tylenol level, salicylate level, repeat urine drug screen appreciated negative. Respiratory viral panel negative. Follow-up sputum culture. MRSA swab negative. Extubated on 02/05 to room air. 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 TSH found to be elevated more than 111. Appreciate low free T3 and free T4. Cortisol levels elevated. Appreciate improvement in thyroid profile. Continue with IV levothyroxine at 125 mcg daily. Repeat thyroid profile in AM. Depending on her thyroid levels will plan to switch over to oral levothyroxine within next 48 hours. CSF studies appreciated. Protein elevated to more than 190, glucose mildly elevated. Follow-up various CSF studies including VDRL, HSV, bio fire. Less likelihood of bacterial meningitis. Will continue IV ceftriaxone and 1 g daily for 5-day course. Given low concerns for viral meningitis for now and developing of ZAHRAA for now we will hold off on acyclovir. Follow-up HSV and VDRL results. CMV levels negative. Will monitor renal functions. Appreciate neurology consult. Further CSF studies sent accordingly. Patient more calm today. Has received Zyprexa 1 time overnight. Continue with fentanyl patch, Dilaudid as needed, oral Zyprexa 5 mg Q8 as needed, IM every 6 as needed. Diet advanced as per speech evaluation. Will advance further as possible. Continue with gabapentin 300 mg 3 times daily. Zyprexa Zydis 5 mg p.o. 3 times daily as needed, 5 mg IM every 6 hours as needed, Haldol 5 mg IM every 6 hours as needed for agitation not controlled by sedation. (2) Hypothyroidism: Severe hypothyroidism. 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 Appreciate repeat thyroid panel improvement. Elevated thyroglobulin antibody, thyroid peroxidase antibody. Continue with hydrocortisone 60 mg every 6 hourly which is going to match with prednisone 1 mg/kg body weight daily. Will plan to wean in next 2 to 3 days. If continues to tolerate orally will plan to switch to oral prednisone. Appreciate thyroid ultrasound with concerns for hypervascularity. Will discuss care in detail further with endocrinology office once available on Thursday. Start on sliding scale insulin as patient is on high-dose steroids. (3) Hallucination: As #1 (4) Acute kidney injury: Creatinine continues to worsen. Patient's urine output remains stable. Most likely in setting of occasional hypotension, bradycardia along with contrast study done on admission versus use of acyclovir. Appreciate nephrology recommendations. Continue to monitor BMP daily for now. Monitor urine output. Medical reconciliation done for nephrotoxic drugs. Sodium level stable. Will switch to IV forward to half NS at 50 cc/h. Will plan to keep patient euvolemic and match the urine output for next 24 hours. (5) Hypernatremia: Resolved. Switching over to half NS as above. Monitor BMP daily. (6) Bradycardia associated with anesthesia: Currently resolved. Bradycardic most likely due to high-dose fentanyl and propofol. Heart rate improving under decreasing sedation. Dopamine as needed. Target heart rate more than 45-50. Mean artery pressure target more than 65. Hold off on rate limiting medications. Appreciate echocardiogram results. (7) Severe hypothyroidism: Plan Patient's care discussed in detail with patient's over the phone. All the questions were answered. Currently on 96-hour hold. Advance as per speech evaluation. Full code Protonix OPD prophylaxis Heparin 5000 Q8 hourly for DVT prophylaxis. Care discussed in detail with patient and spouse over the phone, nursing staff at bedside, Dr. Rg over the phone. Thank you for involving us in care of Ms. Mckeon. Please call with any concerns. Plan to transfer patient back to Neuropsych Unit once medically stable. Patient will be deemed medically stable if able to continue tolerate medications orally, thyroid functions remain stable on oral management and renal functions remained stable. 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
[2024-02-07 15:51] LABS: Anion Gap 18.2 (5-19); Blood Urea Nitrogen 23 mg/dL (6-20); Calcium 8.5 mg/dL (8.5-10.5); Carbon Dioxide 19 mmol/L (22-29); Chloride 99 mmol/L (98-107); Creatinine Clr Calc Pharmacy 12.7234; Glomerular Filtration Rate 9.6 mL/min (90-130); Glucose 175 mg/dL (65-115); Osmolality Calculated 282 mOsm/kg (285-295); Potassium 4.2 mmol/L (3.5-5.1); Sodium 132 mmol/L (136-145)
[2024-02-07] MEDS: cefTRIAXone 1,000 mg SDV 1000 MG IVP (16:49)
[2024-02-07] MEDS: pantoprazole 40 mg SDV IVP (16:49)
[2024-02-07 18:31] LABS: Bilirubin Urine Negative (Negative); Blood Urine 2+ (Negative); Glucose Urine UA Negative (Normal); Ketones Urine Negative (Negative); Leukocyte Esterase Urine 2+ (Negative); Nitrate Urine Negative (Negative); Protein Urine Trace (Negative); Specific Gravity, Urine 1.005 (1.005-1.030); Urine Appearance Clear (CLEAR); Urine Color Yellow (Yellow); Urobilinogen Urine 0.2 mg/dL (Negative); pH Urine 5.5 (5-7)
[2024-02-07 18:36] LABS: Add Urine Microscopic? YES; Bacteria Urine 4+ /hpf; Hyaline Casts Urine 4.95 /lpf; RBC Urine 0-2 /hpf (0-2); Squamous Epithelial Cell Urine 0-5 /hpf (0-5); WBC Urine 21-50 /hpf (0-5)
[2024-02-07 18:43] LABS: Potassium, Radom Urine 17 mmol/L; Urine Creatinine 43 mg/dL (28-217)
[2024-02-07 18:47] LABS: Urine Random Chloride 14 mmol/L; Urine Random Sodium 10 mmol/L
--- NOTE | 2024-02-07 19:17 | P.NPUPN_ITS ---
Subjective NPU 2 Subjective: The patient remained in ICU and appeared to have less agitation and did not appear to require additional Precedex today. She had apparently appeared to be responding to internal stimuli. She was unable to provide any information due to her continued level of sedation as staff notes patient was sleeping most of the day while in ICU. Mental Status Exam 2 MSE Comments: This is a slender white female in hospital scrubs with limited grooming and eye contact. Absent dentition with some facial atrophy. No abnormal movements except for significant psychomotor retardation. She was not alert and was unable to answer any questions. Speech was nonexistent today even while extubated. Mood not described, affect was subdued. Thought process was difficult to assess as she was difficult to arouse. Vitals/I&O/Wt Last Vital Signs Temp 98.2 F 02/07/24 04:11 Pulse 50 L 02/07/24 18:00 Resp 16 02/07/24 18:00 BP 110/70 02/07/24 18:00 Pulse Ox 98 02/07/24 04:10 O2 Del Method Room Air 02/07/24 06:00 FiO2 28 02/06/24 07:37 02/07/24 02/07/24 02/07/24 06:59 14:59 22:59 Intake Total 1506.75 / 3301.428 311.25 / 311.25 300 / 611.25 Output Total 575 / 1575 825 / 825 Balance 931.75 / 1726.428 311.25 / 311.25 -525 / -213.75 Weight last 48 hrs Weight 60.373 kg Weight 59.874 kg Weight 59.874 kg Physical Exam 2 Urinary Catheter Management: Yin: Cath Placed During This Visit: yes Reason for Continuing Indwelling Catheter: Accurate Measurement of Urinary Output in Critically Ill Patients Urinary Catheter Date of Insertion: 02/02/24 Urinary Catheter Time of Insertion: 17:31 Data NPU 02/07/24 05:36 02/07/24 15:05 Micro: Microbiology 02/03/24 16:15 Mycobacterial Smear - Preliminary Cerebrospinal Fluid 02/03/24 16:15 Gram Stain - Final Cerebrospinal Fluid CSF Culture - Final Microbiology 02/03/24 16:15 Cerebrospinal Fluid Mycobacterial Smear - Preliminary 02/03/24 16:15 Cerebrospinal Fluid Gram Stain - Final 02/03/24 16:15 Cerebrospinal Fluid CSF Culture - Final A&P Assessment and plan (1) Altered mental status: (2) Acute psychosis: (3) Hallucination: (4) Delirium: (5) Cannabis use disorder: (6) Hypothyroidism: (7) Severe hypothyroidism: Plan This is a 43-year-old white female unknown to inpatient or outpatient psychiatric services at [facility] with a reported history of psychiatric symptoms and treatments in the past prior to moving here who presents with delirium of unknown etiology with a UDS positive for cannabis and a slightly decreased sodium. 1. Identify medications and restart medications at appropriate doses. Agree with increasing Depakote to 500 p.o. twice daily and restarting thyroid medication as well as Neurontin. Also agree with use of Zyprexa, Haldol and benzodiazepines as needed to control agitation until we have a clear picture of what is driving her behavior. 2. Continue one-to-one and possible soft restraints given level of agitation even while intubated with low propofol given concerns for safety of herself and others. 3. Encourage individual, group and milieu therapy when she is ready to participate when returns to unit. 4. Encourage sober living treatment after discharge at the highest level care to which she is willing to commit. Concerns that cannot also be contributing factor to this presentation. 5. Obtain collateral information. 6. Continue on 96-hour hold. 7. Hospitalist consult requested. Patient given 3 rounds essentially a as needed medication. Each approximately an hour apart so over a 2-hour period, every 15 minute checks were escalated to 1-1, which was escalated to assisting the one-to-one, which was escalated to seclusion which could not be done safely, so that was escalated to restraints which could not maintain her without multiple staff and security around. Given that was the case and we did not have full information on scans excetra as well as her history consideration of ICU management which would be more controlled and less reactive was requested. Appreciate hospitalist consult as well as neurology. 8. Transferred to ICU for more controlled care. Transferred to [facility] to complete the thiamine IV administration. 9. Will continue to follow with likely transfer back to neuropsychiatric unit once medically stable. If this is thyroid induced psychosis recovery will still take time multiple likely best be managed in the psychiatric unit. Attestations NPU 2 Medical Necessity Statement*: Inpatient psychiatric hospitalization is medically necessary and the clinically appropriate intervention at this time. We will monitor/initiate medications and make changes as indicated. Her likely length of stay 7 to 10 days. Coding Level of Care Code Acute Code for Chg Fwd Diagnoses Altered mental status R41.82 Acute psychosis F23 Hallucination R44.3 Delirium R41.0 Cannabis use disorder F12.90 Hypothyroidism E03.9 Severe hypothyroidism E03.9
[2024-02-07 19:36] LABS: Glucose Point of Care 123 mg/dL (70-110)
[2024-02-07] MEDS: gabapentin 100 mg Capsule PO (22:34)
[2024-02-07 22:46] LABS: St. Louis Enceph.Virus IGG CSF <1:1; St. Louis Enceph.Virus IGM CSF <1:1
[2024-02-08] VITALS (18 sets, daily range): BP systolic 100–149; BP diastolic 55–91; PULSE 18–81; RESP 12–23; TEMP 36.8–37.4; O2SAT 95–98
[2024-02-08] MEDS: heparin 5,000 unit/mL INJ 1 mL 5000 UNIT SUBCUT ×3 (02:23→17:37)
[2024-02-08] MEDS: hydrocortisone 100 mg/2 mL SDV 60 MG IVP ×4 (02:23→22:04)
[2024-02-08 02:42] LABS: Glucose Point of Care 102 mg/dL (70-110)
[2024-02-08 05:35] LABS: Basophils % 0.1 %; Lymphocytes % 8.7 %; Mean Corpuscular HGB Conc 33.1 g/dL (30-55); Mean Corpuscular Hemoglobin 30.5 pg (27-33); Mean Corpuscular Volume 92.2 fl (85-98); Mean Platelet Volume 11.1 fL (7.4-10.4); Monocytes # 0.6 10^3/uL (0.2-0.9); Monocytes % 5.1 %; Neutrophils % 85.7 %; Nucleated Red Blood Cells % 0 %; Platelet Count 278 10^3/cmm (157-399); Red Blood Count 3.47 10^6/uL (3.85-5.65); Red Cell Distribution Width 13.8 % (12.1-15.1); White Blood Count 11.42 10^3/uL (3.29-11.43)
[2024-02-08] MEDS: sodium chloride 0.45% 1,000 ML 50 ML IV (05:42)
[2024-02-08 05:52] LABS: Alanine Aminotransferase 38 U/L (0-33); Albumin Level 3.3 g/dL (3.5-5.2); Alkaline Phosphatase 42 U/L (35-105); Anion Gap 20.5 (5-19); Aspartate Amino Transferase 53 U/L (0-32); Blood Urea Nitrogen 28 mg/dL (6-20); Calcium 8.6 mg/dL (8.5-10.5); Carbon Dioxide 19 mmol/L (22-29); Chloride 101 mmol/L (98-107); Creatinine Clr Calc Pharmacy 13.5532; Globulin 2.1 g/dL (1.3-4.6); Glomerular Filtration Rate 10.3 mL/min (90-130); Glucose 96 mg/dL (65-115); Osmolality Calculated 287 mOsm/kg (285-295); Potassium 4.5 mmol/L (3.5-5.1); Sodium 136 mmol/L (136-145); Total Bilirubin 0.2 mg/dL (0.15-1.2); Total Protein 5.4 g/dL (6.6-8.7)
[2024-02-08 06:04] LABS: Free T4 Free Thyroxine 0.94 ng/dL (0.82-1.77); Thyroid Stimulating Hormone 8.72 uIU/mL (0.27-4.20)
[2024-02-08 07:53] LABS: Glucose Point of Care 117 mg/dL (70-110)
--- NOTE | 2024-02-08 08:12 | PM.PN ---
Subjective Subjective: seen and examined- feels better. still w/ edema. no n/v/f/c/vazquez/d/leg pains. no sob Medications: Reviewed: Yes Medication Review Details: Current Medications Acetaminophen (Acetaminophen 325 Mg Tablet) 650 mg PO Q4H PRN PRN Reason: MILD PAIN Atropine Sulfate (Atropine 0.1 Mg/Ml Syr 10 Ml) 1 mg IVP ONCE PRN PRN Reason: Bradycardia Bisacodyl (Bisacodyl 5 Mg Tablet) 10 mg PO DAILY PRN; Protocol PRN Reason: Constipation (see protocol) Last Admin: 02/07/24 05:36 Dose: 10 mg Camphor/Menthol/Phenol (Blistex Lip Oint 7 Gm Tube) 1 applic TOPICAL Q1H PRN PRN Reason: DRYNESS Last Admin: 02/07/24 02:13 Dose: 1 applic Ceftriaxone Sodium (Ceftriaxone 1,000 Mg Sdv) 1,000 mg IVP Q24H [facility]; Protocol Last Admin: 02/07/24 16:49 Dose: 1,000 mg Fentanyl (Fentanyl 25 Mcg Patch) 1 patch TRANSDERMA Q72H [facility] Last Admin: 02/06/24 12:20 Dose: 1 patch Gabapentin (Gabapentin 100 Mg Capsule) 100 mg PO TID [facility] Last Admin: 02/07/24 22:34 Dose: 100 mg Glucagon (Glucagon 1 Mg/Ml Kit 1 Ml) 1 mg IM ONCE PRN; Protocol PRN Reason: Adult Acute Hypoglycemia Nursing Prot. Heparin Sodium (Porcine) (Heparin 5,000 Unit/Ml Inj 1 Ml) 5,000 unit SUBCUT Q8H [facility] Last Admin: 02/08/24 02:23 Dose: 5,000 unit Hydrocortisone Sodium Succinate (Hydrocortisone 100 Mg/2 Ml Sdv) 60 mg IVP Q6H [facility] Last Admin: 02/08/24 05:49 Dose: 60 mg Hydromorphone HCl (Hydromorphone 1 Mg/Ml Inj 1 Ml) 2 mg IVP Q4H PRN PRN Reason: Pain Hydroxyzine Pamoate (Hydroxyzine 25 Mg Capsule) 50 mg PO Q6H PRN PRN Reason: ANXIETY Last Admin: 02/07/24 08:20 Dose: 50 mg Dexmedetomidine/Sodium Chloride (Precedex) 400 mcg in 100 mls @ 0 mls/hr IV .Q0M [facility]; Protocol Last Titration: 02/06/24 19:03 Dose: 0 mcg/kg/hr, 0 mls/hr Dextrose (D5w) 500 mls @ 0 mls/hr IV ONCE PRN; Protocol PRN Reason: Adult Acute Hypoglycemia Prot Dextrose (D10w) 125 mls @ 750 mls/hr IV PRN PRN; Protocol PRN Reason: Adult Acute Hypoglycemia Nursing Protocol Dextrose (D10w) 250 mls @ 1,000 mls/hr IV PRN PRN; Protocol PRN Reason: Adult Acute Hypoglycemia Nursing Protocol Sodium Chloride (Sodium Chloride 0.45%) 1,000 mls @ 50 mls/hr IV .Q20H NELY Last Admin: 02/08/24 05:42 Dose: 50 mls/hr Insulin Human Lispro (Insulin Lispro 100 Unit/1 Ml) 0 unit SUBCUT Q6H NELY; Protocol Last Admin: 02/08/24 02:48 Dose: Not Given Lactulose (Lactulose Oral Liq 20 Gm/30 Ml Udc) 10 gm PO DAILY PRN; Protocol PRN Reason: Constipation (see protocol) Levothyroxine Sodium (Levothyroxine 100 Mcg Sdv) 125 mcg IVP DAILY NELY Last Admin: 02/07/24 08:13 Dose: 125 mcg Loperamide HCl (Loperamide 2 Mg Capsule) 2 mg PO Q6H PRN PRN Reason: DIARRHEA Magnesium Hydroxide (Magnesium Hydroxide 30 Ml Udc) 30 ml PO DAILY PRN; Protocol PRN Reason: Constipation (see protocol) Nicotine (Nicotine 21 Mg Patch) 1 patch TRANSDERMA DAILY PRN PRN Reason: NICOTINE WITHDRAWAL Nicotine Polacrilex (Nicotine 2 Mg Gum) 2 mg BUCCAL Q2H PRN PRN Reason: NICOTINE WITHDRAWAL Olanzapine (Olanzapine 10 Mg Vial) 5 mg IM Q6H PRN PRN Reason: SEVERE AGITATION Last Admin: 02/03/24 22:20 Dose: 5 mg Olanzapine (Olanzapine 5 Mg Odt) 5 mg PO TID PRN PRN Reason: AGITATION Last Admin: 02/06/24 22:04 Dose: 5 mg Ondansetron HCl (Ondansetron 2 Mg/Ml Sdv 2 Ml) 4 mg IVP Q8H PRN PRN Reason: vomiting, or N/V if npo Pantoprazole Sodium (Pantoprazole 40 Mg Sdv) 40 mg IVP Q24H NELY Last Admin: 02/07/24 16:49 Dose: 40 mg Trazodone HCl (Trazodone 50 Mg Tablet) 50 mg PO BEDTIME PRN PRN Reason: SLEEP Vitals/I&O/Wt Last Vital Signs Temp 98.6 F 02/08/24 06:00 Pulse 42 L 02/08/24 06:00 Resp 16 02/08/24 06:00 BP 107/65 02/08/24 06:00 Pulse Ox 98 02/07/24 04:10 O2 Del Method Room Air 02/07/24 06:00 FiO2 28 02/06/24 07:37 02/07/24 02/08/24 02/08/24 22:59 06:59 14:59 Intake Total 420 / 731.25 1173.333 / 1904.583 Output Total 825 / 825 950 / 1775 Balance -405 / -93.75 223.333 / 129.583 Weight last 48 hrs Weight 60.373 kg Weight 59.874 kg Physical Exam Narrative: comfortable in bed, NARD heent + facial edema neck supple lungs clear heart reg + s1, s2 abd soft, nt, nd, + bs ext 1+ edema neuro- awake, alert and interactive Urinary Catheter Management: Yin: Cath Placed During This Visit: yes Reason for Continuing Indwelling Catheter: Accurate Measurement of Urinary Output in Critically Ill Patients Urinary Catheter Date of Insertion: 02/02/24 Urinary Catheter Time of Insertion: 17:31 Data 02/08/24 04:55 02/08/24 04:55 Micro: Microbiology 02/02/24 19:29 Blood Culture - Final Blood NO GROWTH AFTER 5 DAYS 02/02/24 19:22 Blood Culture - Final Blood NO GROWTH AFTER 5 DAYS A&P Assessment and plan (1) Acute kidney injury: 1. Acute kidney injury: Baseline creatinine was normal on presentation creatinine yesterday was 4.9 mg/ dl associated with metabolic acidosis: Etiology likely ATN in the setting of hypotension and also medication induced-IV Acyclovir and IV contrast exposure. she was also taking ibuprofen daily for months to years -good uop. cr improving cont ivf 2. Metabolic acidosis: improvo ng 3. History of hypothyroidism with myxedema and psychosis: Status post IV levothyroxine- tsh dramatically improved. consider dec dose 4. Acute respiratory failure: Extubated now 5. Acute psychosis and seizures, improving 6. bp stable Patient evaluated using audiovisual cart with the aide of a RN Plan see above Attestations Medical Necessity Statement*: katharine Time Spent in Patient Care: 16 - 35 minutes (>than 50% of time spent in counselling and/or direct pt care on unit). Coding Level of Care Code Acute Code for g Fwd Diagnoses Acute kidney injury N17.9
--- NOTE | 2024-02-08 08:16 | PC.OT ---
OT EVALUATION CONTINUES TO BE HELD DUE TO ICU PLACEMENT. WILL CONTINUE TO MONITOR AND EVALUATE FOR NPU GROUPS ONCE RETURNED TO NPU
[2024-02-08] MEDS: hyDROXYzine 25 mg Capsule 50 MG PO (08:27)
[2024-02-08] MEDS: levothyroxine 100 mcg SDV 125 MCG IVP (09:14)
[2024-02-08] MEDS: gabapentin 100 mg Capsule PO ×3 (09:15→22:04)
[2024-02-08] MEDS: lactated ringers 1,000 ML 75 ML IV ×2 (09:45→23:29)
[2024-02-08 10:39] LABS: JC Virus DNA Ultra QN PCR NOT DETECTED Log IU/mL; JC Virus Quant CSF PCR NOT DETECTED
[2024-02-08 13:09] LABS: Glucose Point of Care 137 mg/dL (70-110)
--- NOTE | 2024-02-08 14:53 | P.PN_ITS ---
Subjective 2 Subjective: No acute events overnight. Patient has remained hemodynamically stable and afebrile. Has not received any sedating or antipsychotic medications. Precedex has been off. Last olanzapine was on . Has been requiring on and off hydroxyzine Vitals/I&O/Wt Last Vital Signs Temp 99.4 F 02/08/24 12:00 Pulse 18 L 02/08/24 12:00 Resp 14 02/08/24 07:00 BP 149/88 02/08/24 12:00 Pulse Ox 98 02/07/24 04:10 O2 Del Method Room Air 02/07/24 06:00 FiO2 28 02/06/24 07:37 02/07/24 02/08/24 02/08/24 22:59 06:59 14:59 Intake Total 420 / 731.25 1173.333 / 1904.583 Output Total 825 / 825 950 / 1775 Balance -405 / -93.75 223.333 / 129.583 Weight last 48 hrs Weight 60.373 kg Weight 59.874 kg Physical Exam 2 Narrative: General: Less anxious, alert and oriented to self, place with occasional episodes of agitation HEENT: PERRLA, pupils bilaterally equal and reactive Chest: Normal vesicular breath sounds, no added sounds, equal good air entry bilaterally CVS: S1-S2 regular, no murmurs, bradycardia, no gallops, no rubs Abdomen: Soft, nontender, no organomegaly, bowel sounds present Neuro: No focal deficits, no facial deformity, moving all limbs, thrashing in bed Urinary Catheter Management: Yin: Cath Placed During This Visit: yes Reason for Continuing Indwelling Catheter: Accurate Measurement of Urinary Output in Critically Ill Patients Urinary Catheter Date of Insertion: 02/02/24 Urinary Catheter Time of Insertion: 17:31 Data 02/08/24 04:55 02/08/24 04:55 Micro: Microbiology 02/02/24 19:29 Blood Culture - Final Blood NO GROWTH AFTER 5 DAYS 02/02/24 19:22 Blood Culture - Final Blood NO GROWTH AFTER 5 DAYS A&P Assessment and plan (1) Acute psychosis: Unknown cause. Associated with some visual and auditory hallucination worsening over last 4 days. Concerns for inflicting self-harm in the Neuropsych Unit with punching of the cortes. Has missed her chronic home medications including gabapentin levothyroxine over last 2 weeks as per patient's . Given concerns for acute psychosis with patient inflicting self-harm, not being able to managed with multiple antipsychotics and benzodiazepines with concerns of possible seizures with multiple antipsychotics requirement which could lead to respiratory distress for now we will go ahead and intubate the patient so necessary investigation can be done at the earliest. Concerns for possible seizure with arching of the back and rolling of the eyes while in the Neuropsych Unit. Though no past history. No bowel or bladder accidents. Cannot rule out in setting of withdrawal from gabapentin. Respiratory viral panel negative, procalcitonin negative, prolactin elevated, beta-hCG negative, alcohol level, Tylenol level, salicylate level, repeat urine drug screen appreciated negative. Respiratory viral panel negative. Follow-up sputum culture. MRSA swab negative. Extubated on 02/05 to room air. 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 TSH found to be elevated more than 111. Appreciate low free T3 and free T4. Cortisol levels elevated. Appreciate improvement in thyroid profile. Switch to oral levothyroxine today. CSF studies appreciated. Protein elevated to more than 190, glucose mildly elevated. Follow-up various CSF studies including VDRL, HSV, bio fire. Less likelihood of bacterial meningitis. Will continue IV ceftriaxone and 1 g daily for 5-day course. Given low concerns for viral meningitis for now and developing of ZAHRAA for now we will hold off on acyclovir. Follow-up HSV and VDRL results. CMV levels negative. Will monitor renal functions. Appreciate neurology consult. Further CSF studies sent accordingly. Patient more calm today. Has received Zyprexa 1 time overnight. Continue with fentanyl patch, Dilaudid as needed, oral Zyprexa 5 mg Q8 as needed, IM every 6 as needed. Diet advanced as per speech evaluation. Will advance further as possible. Continue with gabapentin 300 mg 3 times daily. Zyprexa Zydis 5 mg p.o. 3 times daily as needed, 5 mg IM every 6 hours as needed, Haldol 5 mg IM every 6 hours as needed for agitation not controlled by sedation. (2) Hypothyroidism: Severe hypothyroidism. 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 Appreciate repeat thyroid panel improvement. Elevated thyroglobulin antibody, thyroid peroxidase antibody. Wean hydrocortisone to 60 mg every 8 hours plan to switch to oral prednisone within next 24 to 48 hours. Appreciate thyroid ultrasound with concerns for hypervascularity. Will need to follow-up with endocrinology office as an outpatient. Start on sliding scale insulin as patient is on high-dose steroids. (3) Hallucination: As #1 (4) Acute kidney injury: Creatinine continues to worsen. Patient's urine output remains stable. Most likely in setting of occasional hypotension, bradycardia along with contrast study done on admission versus use of acyclovir. Appreciate nephrology recommendations. Continue to monitor BMP daily for now. Monitor urine output. Medical reconciliation done for nephrotoxic drugs. Sodium level stable. Will switch to IV forward to half NS at 50 cc/h. Will plan to keep patient euvolemic and match the urine output for next 24 hours. (5) Hypernatremia: Resolved. Switching over to half NS as above. Monitor BMP daily. (6) Bradycardia associated with anesthesia: Currently resolved. Bradycardic most likely due to high-dose fentanyl and propofol. Heart rate improving under decreasing sedation. Dopamine as needed. Target heart rate more than 45-50. Mean artery pressure target more than 65. Hold off on rate limiting medications. Appreciate echocardiogram results. (7) Severe hypothyroidism: Patient gives history of graves disease in the past. Radioactive iodine ablation around 20 years ago at [facility] [place]. Does not have an elementary reading tutor and usually used to follow-up with the PCP at [place]. Plan Patient's care discussed in detail with patient's over the phone. All the questions were answered. Currently on 96-hour hold. Advance as per speech evaluation. Full code Protonix OPD prophylaxis Heparin 5000 Q8 hourly for DVT prophylaxis. Care discussed in detail with patient and spouse over the phone, nursing staff at bedside, Dr. Rg over the phone. Thank you for involving us in care of Ms. Mckeon. Please call with any concerns. Plan for the day: Patient psychosis seems to have resolved. Reporting less hallucinations. Appreciate psychiatric recommendations. As per psychiatric team patient does not need to go back to Neuropsych Unit and it is believed her hallucinations and psychosis is most likely metabolic. 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 CSF studies still awaited. So far CMV, JCV negative. Oligoclonal bands, Lyme's, VDRL pending. BioFire still pending. Continue with IV ceftriaxone and 1 g daily to finish a 5-day course. Appreciate TSH of 8.7, normalization of free T4. Switch to oral levothyroxine 200 mcg oral daily. Wean hydrocortisone to 60 mg 3 times daily. Will plan to transition to oral prednisone within next 24 hours. Renal function stable. Urine output appropriate. Document urine output of almost 1600. Switch to Ringer lactate as per nephrology recommendations. Continue on gabapentin at 100 mg 3 times daily as per creatinine clearance. Dilaudid as needed. Patient takes Suboxone at home. Monitor heart rate. Continue with sitter at bedside. Can transfer to [facility] floor. Discharge plan: Plan to discharge home once medically stable. Patient will need a new PCP and possible follow-up with endocrinology. Can plan to discharge if renal functions remained stable and able to tolerate oral levothyroxine and prednisone going forward. 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
--- NOTE | 2024-02-08 15:15 | PC.NURSE ---
Pt taken to [facility] via wheelchair. Belongings include dukes, stuffed animal, and card.
[2024-02-08] MEDS: pantoprazole 40 mg SDV IVP (17:37)
[2024-02-08] MEDS: cefTRIAXone 1,000 mg SDV 1000 MG IVP (17:38)
--- NOTE | 2024-02-08 18:02 | P.NPUPN_ITS ---
Subjective NPU 2 Subjective: 43-year-old female admitted with severe hypothyroidism and evidence of psychosis. Patient appeared substantially improved today. She had stated having no recollection of her behavior with patient reporting that she had had no previous history of psychotic symptoms. She had stated that she had problems with her vision. She had reported that she was feeling much better and stated that she would be willing to stay here in the hospital until she was stabilized. She had stated that she had not used her her Synthroid in several weeks prior to arriving here in the hospital. Mental Status Exam 2 MSE Comments: This is a slender white female in hospital scrubs with limited grooming and eye contact. Absent dentition with some facial atrophy. She was pleasant and cooperative on interview. Her mood was described as better. Her affect appeared euthymic. Her thought process was linear logical and goal-directed. Her thought content showed no evidence of active homicidal or suicidal ideation. There was no clear evidence of delusional thinking. She did not appear to be responding to internal stimuli although she had reported in the distance having unusual visual stimulus that she could not identify. She was alert and oriented to person place and time. Her recent remote memory appeared grossly intact. Her insight was fair. Her judgment was fair. Her impulse control appeared guarded. Vitals/I&O/Wt Last Vital Signs Temp 98.3 F 02/08/24 16:00 Pulse 65 02/08/24 16:00 Resp 18 02/08/24 16:00 BP 135/81 02/08/24 16:00 Pulse Ox 98 02/08/24 16:00 O2 Del Method Room Air 02/07/24 06:00 FiO2 28 02/06/24 07:37 02/08/24 02/08/24 02/08/24 06:59 14:59 22:59 Intake Total 1173.333 / 1904.583 240 / 240 1000 / 1240 Output Total 950 / 1775 850 / 850 Balance 223.333 / 129.583 -610 / -610 1000 / 390 Weight last 48 hrs Weight 60.373 kg Physical Exam 2 Urinary Catheter Management: Yin: Cath Placed During This Visit: yes Reason for Continuing Indwelling Catheter: Accurate Measurement of Urinary Output in Critically Ill Patients Urinary Catheter Date of Insertion: 02/02/24 Urinary Catheter Time of Insertion: 17:31 Data NPU 02/08/24 04:55 02/08/24 04:55 Micro: Microbiology 02/02/24 19:29 Blood Culture - Final Blood NO GROWTH AFTER 5 DAYS 02/02/24 19:22 Blood Culture - Final Blood NO GROWTH AFTER 5 DAYS Microbiology 02/02/24 19:29 Blood Blood Culture - Final NO GROWTH AFTER 5 DAYS 02/02/24 19:22 Blood Blood Culture - Final NO GROWTH AFTER 5 DAYS A&P Assessment and plan (1) Hallucination: (2) Severe hypothyroidism: Plan 1. The patient's psychosis appears to have resolved. The 96-hour hold was rescinded as the patient was agreeable to staying here while continue to receive medical treatment. She will continue to be followed here while receiving medical treatment for her hypothyroidism. Will monitor for aggression and agitation although the patient does appear to be substantially improved and no further psychotropics are likely necessary. Attestations NPU 2 Medical Necessity Statement*: Inpatient medical hospitalization remains necessary. Patient appears much improved and likely will not need acute inpatient psychiatric hospitalization. Coding Level of Care Code Acute Code for [facility] Diagnoses Hallucination R44.3 Severe hypothyroidism E03.9
[2024-02-08 22:01] LABS: Glucose Point of Care 209 mg/dL (70-110)
[2024-02-08] MEDS: insulin lispro 100 unit/1 mL SUBCUT (22:04)
[2024-02-09] VITALS: BP 109/65; PULSE 63; RESP 16; TEMP 36.8; O2SAT 96
[2024-02-09] MEDS: heparin 5,000 unit/mL INJ 1 mL 5000 UNIT SUBCUT (01:54)
[2024-02-09] MEDS: insulin lispro 100 unit/1 mL SUBCUT (01:59)
[2024-02-09 02:08] LABS: Glucose Point of Care 154 mg/dL (70-110)
[2024-02-09 03:41] VITALS: BP 115/62; PULSE 51; RESP 18; TEMP 36.9; O2SAT 98
[2024-02-09] MEDS: levothyroxine 200 mcg Tablet PO (05:51)
[2024-02-09 06:41] LABS: Alanine Aminotransferase 39 U/L (0-33); Albumin Level 3.1 g/dL (3.5-5.2); Alkaline Phosphatase 44 U/L (35-105); Anion Gap 15.7 (5-19); Aspartate Amino Transferase 41 U/L (0-32); Blood Urea Nitrogen 40 mg/dL (6-20); Calcium 8.6 mg/dL (8.5-10.5); Carbon Dioxide 21 mmol/L (22-29); Chloride 108 mmol/L (98-107); Creatinine Clr Calc Pharmacy 16.8082; Free T4 Free Thyroxine 0.98 ng/dL (0.82-1.77); Glomerular Filtration Rate 12.8 mL/min (90-130); Glucose 115 mg/dL (65-115); Magnesium 1.9 mg/dL (1.7-2.3); Osmolality Calculated 301 mOsm/kg (285-295); Phosphorus 3.4 mg/dL (2.5-4.5); Potassium 4.7 mmol/L (3.5-5.1); Sodium 140 mmol/L (136-145); Thyroid Stimulating Hormone 4.75 uIU/mL (0.27-4.20); Total Bilirubin 0.2 mg/dL (0.15-1.2); Total Protein 5.1 g/dL (6.6-8.7)
[2024-02-09 07:51] VITALS: BP 118/69; PULSE 55; RESP 17; TEMP 37.1; O2SAT 98
[2024-02-09] MEDS: gabapentin 100 mg Capsule PO (08:51)
[2024-02-09] MEDS: hydrocortisone 100 mg/2 mL SDV 60 MG IVP (08:51)
--- NOTE | 2024-02-09 09:16 | P.PN_ITS ---
Subjective 2 Subjective: seen and examined. feels better. wants to go home. no n/v/f/c/vazquez/d/leg pains Medications: Reviewed: Yes Medication Review Details: Current Medications Acetaminophen (Acetaminophen 325 Mg Tablet) 650 mg PO Q4H PRN PRN Reason: MILD PAIN Atropine Sulfate (Atropine 0.1 Mg/Ml Syr 10 Ml) 1 mg IVP ONCE PRN PRN Reason: Bradycardia Bisacodyl (Bisacodyl 5 Mg Tablet) 10 mg PO DAILY PRN; Protocol PRN Reason: Constipation (see protocol) Last Admin: 02/07/24 05:36 Dose: 10 mg Camphor/Menthol/Phenol (Blistex Lip Oint 7 Gm Tube) 1 applic TOPICAL Q1H PRN PRN Reason: DRYNESS Last Admin: 02/07/24 02:13 Dose: 1 applic Ceftriaxone Sodium (Ceftriaxone 1,000 Mg Sdv) 1,000 mg IVP Q24H NELY; Protocol Last Admin: 02/08/24 17:38 Dose: 1,000 mg Fentanyl (Fentanyl 25 Mcg Patch) 1 patch TRANSDERMA Q72H [facility] Last Admin: 02/06/24 12:20 Dose: 1 patch Gabapentin (Gabapentin 100 Mg Capsule) 100 mg PO TID [facility] Last Admin: 02/09/24 08:51 Dose: 100 mg Glucagon (Glucagon 1 Mg/Ml Kit 1 Ml) 1 mg IM ONCE PRN; Protocol PRN Reason: Adult Acute Hypoglycemia Nursing Prot. Heparin Sodium (Porcine) (Heparin 5,000 Unit/Ml Inj 1 Ml) 5,000 unit SUBCUT Q8H [facility] Last Admin: 02/09/24 08:53 Dose: Not Given Hydrocortisone Sodium Succinate (Hydrocortisone 100 Mg/2 Ml Sdv) 60 mg IVP TID [facility] Last Admin: 02/09/24 08:51 Dose: 60 mg Hydromorphone HCl (Hydromorphone 1 Mg/Ml Inj 1 Ml) 2 mg IVP Q4H PRN PRN Reason: Pain Hydroxyzine Pamoate (Hydroxyzine 25 Mg Capsule) 50 mg PO Q6H PRN PRN Reason: ANXIETY Last Admin: 02/08/24 08:27 Dose: 50 mg Dextrose (D5w) 500 mls @ 0 mls/hr IV ONCE PRN; Protocol PRN Reason: Adult Acute Hypoglycemia Prot Dextrose (D10w) 125 mls @ 750 mls/hr IV PRN PRN; Protocol PRN Reason: Adult Acute Hypoglycemia Nursing Protocol Dextrose (D10w) 250 mls @ 1,000 mls/hr IV PRN PRN; Protocol PRN Reason: Adult Acute Hypoglycemia Nursing Protocol Lactated Ringer's (Lactated Ringers) 1,000 mls @ 75 mls/hr IV .[id number] [facility] Last Admin: 02/08/24 23:29 Dose: 75 mls/hr Insulin Human Lispro (Insulin Lispro 100 Unit/1 Ml) 0 unit SUBCUT Q6H [facility]; Protocol Last Admin: 02/09/24 08:48 Dose: Not Given Lactulose (Lactulose Oral Liq 20 Gm/30 Ml Udc) 10 gm PO DAILY PRN; Protocol PRN Reason: Constipation (see protocol) Levothyroxine Sodium (Levothyroxine 200 Mcg Tablet) 200 mcg PO QAM [facility] Last Admin: 02/09/24 05:51 Dose: 200 mcg Loperamide HCl (Loperamide 2 Mg Capsule) 2 mg PO Q6H PRN PRN Reason: DIARRHEA Magnesium Hydroxide (Magnesium Hydroxide 30 Ml Udc) 30 ml PO DAILY PRN; Protocol PRN Reason: Constipation (see protocol) Nicotine (Nicotine 21 Mg Patch) 1 patch TRANSDERMA DAILY PRN PRN Reason: NICOTINE WITHDRAWAL Nicotine Polacrilex (Nicotine 2 Mg Gum) 2 mg BUCCAL Q2H PRN PRN Reason: NICOTINE WITHDRAWAL Olanzapine (Olanzapine 10 Mg Vial) 5 mg IM Q6H PRN PRN Reason: SEVERE AGITATION Last Admin: 02/03/24 22:20 Dose: 5 mg Olanzapine (Olanzapine 5 Mg Odt) 5 mg PO TID PRN PRN Reason: AGITATION Last Admin: 02/06/24 22:04 Dose: 5 mg Ondansetron HCl (Ondansetron 2 Mg/Ml Sdv 2 Ml) 4 mg IVP Q8H PRN PRN Reason: vomiting, or N/V if npo Pantoprazole Sodium (Pantoprazole 40 Mg Sdv) 40 mg IVP Q24H [facility] Last Admin: 02/08/24 17:37 Dose: 40 mg Trazodone HCl (Trazodone 50 Mg Tablet) 50 mg PO BEDTIME PRN PRN Reason: SLEEP Vitals/I&O/Wt Last Vital Signs Temp 98.7 F 02/09/24 07:51 Pulse 55 L 12/17/24 07:51 Resp 17 02/09/24 07:51 BP 118/69 02/09/24 07:51 Pulse Ox 98 02/09/24 07:51 O2 Del Method Room Air 02/09/24 07:51 FiO2 28 02/06/24 07:37 02/08/24 02/09/24 02/09/24 22:59 06:59 14:59 Intake Total 1000 / 1240 1000 / 2240 Output Total 1300 / 2150 1075 / 3225 Balance -300 / -910 -75 / -985 Weight last 48 hrs Weight 63.775 kg Physical Exam 2 Narrative: comfortable in bed, NARD heent +missing many teeth. dec edema neck supple lungs clear b/l heart reg + s1, s2 abd soft, nt, nd, + bs ext -decreased b/l leg edema neuro- awake, alert and interactive Urinary Catheter Management: Yin: Cath Placed During This Visit: yes Reason for Continuing Indwelling Catheter: Accurate Measurement of Urinary Output in Critically Ill Patients Urinary Catheter Date of Insertion: 02/02/24 Urinary Catheter Time of Insertion: 17:31 Data 02/08/24 04:55 02/09/24 05:26 A&P Assessment and plan (1) Acute kidney injury: 1. Acute kidney injury: Baseline creatinine was normal on presentation creatinine talia on 02/07/24 to 4.9 mg/ dl associated with metabolic acidosis: Etiology likely ATN in the setting of hypotension and also medication induced- IV Acyclovir and IV contrast exposure. she was also taking ibuprofen daily for months to years -good uop. cr improving on ivf -monitor renal fxn 2. Metabolic acidosis: improving 3. History of hypothyroidism with myxedema and psychosis: Status post IV levothyroxine- tsh dramatically improved. ensure she is not over treated 4. Acute psychosis and seizures, improving 6. bp stable on discharge, please have her see her PCP w/in a week to check repeat chemistries Patient evaluated using audiovisual cart with the aide of a RN Plan see above Attestations 2 Medical Necessity Statement*: as per hospitalist Time Spent in Patient Care: 16 - 35 minutes (>than 50% of time sp ent in counselling and/or direct pt care on unit) . Coding Level of Care Code Acute Code for [facility] Diagnoses Acute kidney injury N17.9
--- NOTE | 2024-02-09 11:56 | PM.DCS ---
Discharge Providers Date of Admission: 02/02/24 13:14 Date of Discharge: February 09, 2024 Attending Provider at Admission: Delgado Rg MD Attending Provider at Discharge: Delgado Rg MD Diagnoses at Discharge Discharge Diagnosis (1) Acute kidney injury: Status: Acute (2) Acute psychosis: Status: Acute (3) Hallucination: Status: Acute (4) Bradycardia associated with anesthesia: Status: Acute (5) Severe hypothyroidism: Status: Acute (6) Kevin encephalopathy: Status: Acute Reason for Visit Reason for Visit: hallucinations (says she has serotonin syndrome) Hospital Course Hospital Course Mehdi Mckeon is a 43 year old female with past medical history of hypothyroidism, mental disorder around 20 years ago who was brought into the ER today and was later discharged to Neuropsych Unit in setting of acute psychosis. As per the review of chart, history taken over the phone through patient's she has been having bizarre behavior with auditory and visual hallucinations over the last 4 days. Patient has not slept since then. As per the she has been paranoid lately and thinking people are out to get her. She will internalize any aggression she would watch on TV on to herself. Denies any changes in medications though does state that they had recently moved to [place] from [place] and she has not taken her home doses of gabapentin and levothyroxine over last to 2-1/2 weeks. On review of chart it seems patient was awake and was able to have conversation with the ER physician but continued to have hallucinations in the ER hence was admitted. She was placed on 96 hours in the ER. While being in the Neuropsych Unit patient continued to have worsening psychosis and mentation leading to physical aggression for which she overall received 10 mg of IM Haldol, 4 mg of IM Ativan, 20 of Geodon and 50 of Benadryl overall over 3 hours. Patient continued to be physically aggressive with episodes of punching the wall and required multiple people including security personnel, nursing staff and powerhouse mechanic supervisor given concerns for self harm. As per nursing staff they were concerned of a possible seizure while in Neuropsych Unit with arching of her back and rolling of her eyes though patient did not have any bowel or bladder accidents or frothing from the mouth. On examination in the ICU while being in bed patient was awake not alert, thrashing in bed trying to climb out of bed, having cold sweats with pupils slightly pinpoint bilaterally with sluggish reaction to light. Not able to participate in interview. Found to be tachycardic with Hr of around 120-130 bpm. Does not have an IV access. Due to concerns for aggression not controlled by multiple medications, patient not participating in undergoing necessary investigations which could be potentialy life-saving decision was made for mechanical ventilation after confirming with her spouse over the phone. Patient was started on treatment in ICU. 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 She was started on IV levothyroxine while monitoring her body temperatures, vitals and thyroid profile every 2 to 3 days. Lumbar puncture was negative for CMV, HSV, bacterial meningitis. Neurology was consulted. Patient's hospitalization was complicated by her developing bradycardia which was thought to be in setting of high dose of sedation. Once sedation was off patient's bradycardia also resolved. Hospitalization was also complicated due to her developing acute kidney injury for which nephrology was consulted. Is believed her ZAHRAA is in setting of contrast studies done on admission, occasional hypotension on and off during hospitalization along with severe hypothyroidism. Her renal functions continue to improve. Creatinine peaked at 4.9 and is currently trending down to 3.8. Eventually patient was extubated on 02/05. She has been at her baseline oxygen supplementation of room air, stable vitals and mentation has been improving for last 2 to 3 days. She has been cleared from psychiatric team for discharge. She has been discharged in hemodynamically stable condition with advised to follow-up with a new PCP on set appointment. Appointment has also been made to follow-up with endocrinology team as an outpatient. She will be discharged on steroid taper, levothyroxine 200 mcg daily with advised to stop Suboxone. Discharge details were discussed in detail with the patient and all the questions were answered. He will need to maintain her hydration with up to 40 to 50 ounces of liquid daily. She should also follow-up with nephrology as an outpatient to monitor renal functions. She should have a thyroid profile and BMP checked within next 1 to 2 weeks. Physical Exam Narrative: General: AOx3, no acute distress, not anxious HEENT: PERRLA, pupils bilaterally equal and reactive Chest: Normal vesicular breath sounds, no added sounds, equal good air entry bilaterally CVS: S1-S2 regular, no murmurs, bradycardia, no gallops, no rubs Abdomen: Soft, nontender, no organomegaly, bowel sounds present Neuro: No focal deficits, no facial deformity, moving all limbs, thrashing in bed Urinary Catheter Management: Yin: Cath Placed During This Visit: yes, but has since been removed by the nurse Reason for Continuing Indwelling Catheter: Decision to DC Catheter Urinary Catheter Date of Insertion: 02/02/24 Urinary Catheter Time of Insertion: 17:31 Date Urinary Catheter Removed: 02/09/24 Time Urinary Catheter Discontinued: 11:03 Discharge Data Studies Completed and Pending Completed Studies During Hospitalization Category Date Time Status CT abdomen pelvis wo con [id number] Routine Cat Scan 02/05/24 11:[address] head wo/w con [id number] Routine Cat Scan 02/02/24 16:24 Completed XR chest 1V portable [id number] DAILY Exams 02/05/24 10:35 Completed XR chest 1V portable [id number] Stat Exams 02/02/24 17:19 Completed XR chest 1V portable [id number] Stat Exams 02/06/24 08:37 Completed XR knee RT 1-2V [id number] Routine Exams 02/06/24 11:40 Completed CV. echo complete* [id number] Routine Ultrasound 02/03/24 04:22 [place] thyroid 60939 Routine Ultrasound 02/05/24 13:24 Completed Pending at discharge Category Date Time Status Comprehensive Metabolic Panel AM LABS Lab 02/10/24 04:00 Ordered Comprehensive Metabolic Panel AM LABS Lab 02/11/24 04:00 Ordered Lymes Disease Antibodies CSF Routine Lab 02/03/24 16:15 Received Magnesium AM LABS Lab 02/10/24 04:00 Ordered Magnesium AM LABS Lab 02/11/24 04:00 Ordered Miscellaneous Test Routine Lab 02/03/24 16:15 Received Miscellaneous Test Routine Lab 02/03/24 16:15 Received Miscellaneous Test Routine Lab 02/03/24 16:15 Received Miscellaneous Test Routine Lab 02/03/24 16:15 Received Mycobacteria, Culture w/Fluor Routine Lab 02/03/24 16:15 Results [facility] KAIT Profile Routine Lab 02/02/24 21:42 Results Oligoclonal Bands IGG, CSF Stat Lab 02/03/24 04:47 Received Phosphorus AM LABS Lab 02/10/24 04:00 Ordered Phosphorus AM LABS Lab 02/11/24 04:00 Ordered Thyroglobulin Routine Lab 02/02/24 21:41 Received Thyroid Stimulating Immunoglob Routine Lab 02/02/24 21:41 Received VDRL on CSF Routine Lab 02/03/24 16:15 Received West Nile Virus AB Panel,CSF Routine Lab 02/03/24 16:15 Received Radiology Impressions Head CT 02/02/24 16:24 IMPRESSION: 1. Negative for intracranial hemorrhage, mass effect or abnormal contrast enhancement. 2. Right basal ganglia chronic lacunar infarct. 3. Mild diffuse white matter disease likely reflecting chronic microvascular ischemic changes. Abdomen/Pelvis CT 02/05/24 11:26 IMPRESSION: 1. Small abdominopelvic ascites, retroperitoneal fluid, and pericholecystic fluid. 2. No focal acute pathology identified. 3. Other nonemergent findings above. Thyroid Ultrasound 02/05/24 13:24 IMPRESSION: Limited exam as noted above, with normal thyroid parenchyma not well-defined. Otherwise suggestion of heterogeneous thyroid with decreased size and mild hypervascularity. No nodule identified. Chest X-Ray 02/06/24 08:37 IMPRESSION: No acute cardiopulmonary abnormality identified. Knee X-Ray 02/06/24 11:40 IMPRESSION: 1. No acute appearing osseous abnormality identified. 2. Focal deformity of the right proximal fibular shaft, most likely sequelae of remote healed fracture but recommend correlation with clinical history for confirmation. Echocardiogram: CONCLUSIONS Technically very limited quality echocardiogram because of limited ultrasonic windows. Grossly LV systolic function appears to be normal Valvular stuctures can not be assessed with limited visualization. Guille Yuen MD (Electronically Signed) Final Date: 03 February 2024 17:51 Laboratory Results WBC 11.42 10^3/uL (3.29-11.43) 02/08/24 04:55 RBC 3.47 10^6/uL (3.85-5.65) L 02/08/24 04:55 Hgb 10.60 g/dL (11.27-16.99) L 02/08/24 04:55 Hct 32.0 % (36-47) L 02/08/24 04:55 MCV 92.2 fl (85-98) 02/08/24 04:55 MCH 30.5 pg (27-33) 02/08/24 04:55 MCHC 33.1 g/dL (30-55) D 02/08/24 04:55 RDW 13.8 % (12.1-15.1) 02/08/24 04:55 Plt Count 278 10^3/cmm (157-399) D 02/08/24 04:55 MPV 11.1 fL (7.4-10.4) H 02/08/24 04:55 Neut % (Auto) 85.7 % 02/08/24 04:55 Lymph % (Auto) 8.7 % 02/08/24 04:55 [place] % (Auto) 5.1 % 02/08/24 04:55 Eos % (Auto) 0.0 % 02/08/24 04:55 Baso % (Auto) 0.1 % 02/08/24 04:55 Neut # (Auto) 9.80 10^3/uL (1.8-7.7) H 02/08/24 04:55 Lymph # (Auto) 1.0 10^3/uL (0.8-4.8) 02/08/24 04:55 [place] # (Auto) 0.6 10^3/uL (0.2-0.9) 02/08/24 04:55 Eos # (Auto) 0.0 10^3/uL (0.0-0.8) 02/08/24 04:55 Baso # (Auto) 0.0 10^3/uL (0.0-0.1) 02/08/24 04:55 Nucleated RBC % (auto) 0 % 02/08/24 04:55 Nucleated RBCs # 0.0 /100WBC 02/08/24 04:55 ESR < 1 mm/hr (0-15) 02/02/24 19:22 PT 13.50 SECONDS (12.1-14.9) 02/02/24 17:12 INR 1.00 (0.8-1.2) 02/02/24 17:12 D-Dimer 0.50 ug/mLFEU (0-0.59) 02/02/24 17:12 Specimen Type Arterial 02/06/24 04:20 Sample Site Radial, right 02/06/24 04:20 ABG pH 7.48 (7.35-7.45) H 02/06/24 04:20 ABG pCO2 20.3 mmHg (35-45) L 02/06/24 04:20 ABG pO2 119.0 mmHg (80.0-100.0) H 02/06/24 04:20 ABG PO2/FiO2 Ratio 425 02/06/24 04:20 ABG HCO3 15.2 mmol/L (22-26) L 02/06/24 04:20 ABG O2 Saturation > 99.1 02/06/24 04:20 ABG Base Excess -6.4 mmol/L (-2.0-2.0) L 02/06/24 04:20 Leonel Test Pos 02/06/24 04:20 A-a O2 Gradient 7.0 mmHg (5-10) 02/06/24 04:20 Hematocrit 34.3 % (37-47) L 02/06/24 04:20 Hgb O2 Saturation 98.9 % (95-100) 02/06/24 04:20 Carboxyhemoglobin 0.6 %THgb (0.4-20.1) 02/06/24 04:20 Methemoglobin < 0.0 % (0.4-1.5) L 02/06/24 04:20 Total Hemoglobin 11.2 g/dL (12-16) L 02/06/24 04:20 Sodium 145.0 mmol/L (131-143) H 02/06/24 04:20 Potassium 3.7 mmol/L (3.5-5.0) 02/06/24 04:20 Glucose 85.0 mg/dL (70-115) 02/06/24 04:20 Ionized Calcium 1.2 mmol/L (1.1-1.4) 02/06/24 04:20 Respiration Rate 14.0 % 02/02/24 17:45 O2 Delivery Device Vent 02/06/24 04:20 Vent Mode Vc-ac 02/02/24 17:45 FiO2 28.0 % 02/06/24 04:20 Tidal Volume 0.40 02/06/24 04:20 PEEP 5.0 cmH20 02/06/24 04:20 Specimen Drawn By Cara 02/02/24 17:45 Combiner Operator ID [email or web address] 02/06/24 04:20 Sodium 140 mmol/L (136-145) 02/09/24 05:26 Potassium 4.7 mmol/L (3.5-5.1) 02/09/24 05:26 Chloride 108 mmol/L (98-107) H 02/09/24 05:26 Carbon Dioxide 21 mmol/L (22-29) L 02/09/24 05:26 Anion Gap 15.7 (5-19) 02/09/24 05:26 BUN 40 mg/dL (6-20) H 02/09/24 05:26 Creatinine 3.8 mg/dL (0.5-0.9) H 02/09/24 05:26 GFR Calculation 12.8 mL/min (90-130) L 02/09/24 05:26 Glucose 115 mg/dL (65-115) 02/09/24 05:26 POC Glucose 154 mg/dL (70-110) H 02/09/24 01:56 Estimat Average Glucose 108 02/02/24 11:09 Hemoglobin A1c 5.4 % (4.0-6.0) 02/02/24 11:09 Calculated Osmolality 301 mOsm/kg (285-295) H 02/09/24 05:26 Calcium 8.6 mg/dL (8.5-10.5) 02/09/24 05:26 Phosphorus 3.4 mg/dL (2.5-4.5) 02/09/24 05:26 Magnesium 1.9 mg/dL (1.7-2.3) 02/09/24 05:26 Iron 69 ug/dL (37-145) 02/02/24 11:09 TIBC 323 mcg/dl 02/02/24 11:09 % Saturation 21.3 % (20-50) 02/02/24 11:09 Unsat Iron Binding 254 ug/dL (112-347) 02/02/24 11:09 Total Bilirubin 0.2 mg/dL (0.15-1.2) 02/09/24 05:26 AST 41 U/L (0-32) H 02/09/24 05:26 ALT 39 U/L (0-33) H 02/09/24 05:26 Alkaline Phosphatase 44 U/L (35-105) 02/09/24 05:26 C-Reactive Protein 3.0 mg/L (0.0-4.9) 02/02/24 19:22 Total Protein 5.1 g/dL (6.6-8.7) L 02/09/24 05:26 Albumin 3.1 g/dL (3.5-5.2) L 02/09/24 05:26 Globulin 2.0 g/dL (1.3-4.6) 02/09/24 05:26 Triglycerides 69 mg/dL (0-150) 02/03/24 04:47 Cholesterol 219 mg/dL (0-200) H 02/03/24 04:47 LDL Cholesterol, Calc 151 mg/dL (50-129) H 02/03/24 04:47 Total VLDL Cholesterol 14 mg/dL (0-30) 02/03/24 04:47 HDL Cholesterol 54 mg/dL (60-100) L 02/03/24 04:47 Cholesterol/HDL Ratio 4.06 mg/dL (0.0-4.40) 02/03/24 04:47 Vitamin B12 1146 pg/mL (232-1245) 02/02/24 11:09 Folate 13.8 ng/mL (4.8-37.3) 02/03/24 04:47 Procalcitonin 0.10 ng/mL (0-0.5) 02/03/24 04:47 TSH 4.75 uIU/mL (0.27-4.20) H 02/09/24 05:26 Free T4 0.98 ng/dL (0.82-1.77) 02/09/24 05:26 Free T3 0.8 PG/ML (2.0-4.4) L 02/02/24 19:22 Prolactin 23.91 ng/mL (4.8-23.3) H 02/02/24 11:09 Ser , Semi-Qnt 1.00 mIU/mL 02/02/24 17:12 Random Cortisol 95.92 ug/dL (2.47-19.5) H 02/02/24 19:22 Urine Color Yellow (Yellow) 02/07/24 12:00 Urine Appearance Clear (CLEAR) 02/07/24 12:00 Urine pH 5.5 (5-7) 02/07/24 12:00 Ur Specific [place] 1.005 (1.005-1.030) 02/07/24 12:00 Urine Protein Trace (Negative) A 02/07/24 12:00 Urine Glucose (UA) Negative (Normal) 02/07/24 12:00 Urine Ketones Negative (Negative) 02/07/24 12:00 Urine Blood 2+ (Negative) A 02/07/24 12:00 Urine Nitrate Negative (Negative) 02/07/24 12:00 Urine Bilirubin Negative (Negative) 02/07/24 12:00 Urine Urobilinogen 0.2 mg/dL (Negative) 02/07/24 12:00 Ur Leukocyte Esterase 2+ (Negative) A 02/07/24 12:00 Urine RBC 0-2 /hpf (0-2) 02/07/24 12:00 Urine WBC 21-50 /hpf (0-5) H 02/07/24 12:00 Ur Eosinophil Smear Not Reportable 02/05/24 15:50 Ur Squamous Epith Cells 0-5 /hpf (0-5) 02/07/24 12:00 Amorphous Sediment Not Reportable 02/07/24 12:00 Urine Bacteria 4+ /hpf (NONE) H 02/07/24 12:00 Hyaline Casts 4.95 /lpf 02/07/24 12:00 Fine Granular Casts 0-4 /lpf H 02/05/24 15:50 Urine Mucus None /hpf 02/02/24 11:49 Urine Eosinophils No eosinophils seen 02/05/24 15:50 Ur Random Sodium 10 mmol/L 02/07/24 12:00 Ur Random Potassium 17 mmol/L 02/07/24 12:00 Ur Random Chloride 14 mmol/L 02/07/24 12:00 Urine Creatinine 43 mg/dL (28-217) 02/07/24 12:00 CSF Appearance Cancelled 02/03/24 16:15 CSF Appearance Clear (CLEAR) 02/03/24 16:15 CSF Color Cancelled 02/03/24 16:15 CSF Color Colorless (COLORLESS) 02/03/24 16:15 CSF Specific [place] 1.007 02/03/24 16:15 CSF WBC 9 /uL (0-5) H 02/03/24 16:15 CSF WBC Cancelled 02/03/24 16:15 CSF RBC 0 10^3/uL (0-0) 02/03/24 16:15 CSF RBC Cancelled 02/03/24 16:15 CSF Total Cell Counted Cancelled 02/03/24 16:15 CSF Mononuclear # Auto 0.001 10^3/uL (50-90) L 02/03/24 16:15 CSF Mononuclear # Auto Cancelled 02/03/24 16:15 CSF Mononuclear WBCs % 11 % (50-90) L 02/03/24 16:15 CSF Mononuclear WBCs % Cancelled 02/03/24 16:15 CSF Polynuclear WBCs # 0.008 10^3/uL (0-10) 02/03/24 16:15 CSF Polynuclear WBCs # Cancelled 02/03/24 16:15 CSF Polynuclear WBCs % 89 % (0-10) H 02/03/24 16:15 CSF Polynuclear WBCs % Cancelled 02/03/24 16:15 CSF Diff Comment Cancelled 02/03/24 16:15 CSF Diff Comment Yes 02/03/24 16:15 CSF Glucose 74 mg/dL (40-70) H 02/03/24 16:15 CSF Glucose Cancelled 02/03/24 16:15 CSF Total Protein 190 mg/dL (15-45) H 02/03/24 16:15 CSF Total Protein Cancelled 02/03/24 16:15 CSF Yanet Enceph IgG <1:1 02/03/24 16:[address] Sanna Enc IgM IFA <1:1 02/03/24 16:15 CSF Yanet Enceph Intrp See note 02/03/24 16:15 CSF FRANCY Virus DNA (PCR) Not detected IU/mL 02/03/24 16:15 FRANCY Vir DNA Special Info Not detected Log IU/mL 02/03/24 16:15 Nasal MRSA (PCR) Not detected (Not Detecte) 02/02/24 19:20 Salicylates 0.8 mg/dL (3-10) L 02/02/24 17:12 Urine Opiates Screen Negative ng/mL (Negative) 02/02/24 17:08 Acetaminophen < 5.0 ug/mL (10-30) L 02/02/24 17:12 Ur Barbiturates Screen Negative ng/mL (Negative) 02/02/24 17:08 Valproic Acid 45.8 ug/mL (50-100) L 02/05/24 02:51 Ur Phencyclidine Scrn Negative ng/mL (Negative) 02/02/24 17:08 Ur Amphetamines Screen Negative ng/mL (Negative) 02/02/24 17:08 U Benzodiazepines Scrn Negative ng/mL (Negative) 02/02/24 17:08 Urine Cocaine Screen Negative ng/mL (Negative) 02/02/24 17:08 U Marijuana (THC) Screen Positive ng/mL (Negative) H 02/02/24 17:08 Ur Drug Screen Confirm See note 02/02/24 17:08 Ethyl Alcohol < 10 mg/dL (0-10) 02/02/24 17:12 Ethyl Glucuronide Negative ng/mL (<500) 02/02/24 17:08 U Ethyl Glucuronide Cnf Not Reportable 02/02/24 17:08 Ur Ethyl Sulfate Conf Not Reportable 02/02/24 17:08 Confirmation (GC/MS) Not Reportable 02/02/24 17:08 TAMMI-1 Antibody <1.0 neg AI (<1.0 NEG) 02/03/24 04:47 SS-A/Ro IgG Antibody <1.0 neg AI (<1.0 NEG) 02/03/24 04:47 SS-B/La IgG Antibody <1.0 neg AI (<1.0 NEG) 02/03/24 04:47 Scl-70 Scleroderma Ab <1.0 neg AI (<1.0 NEG) 02/03/24 04:47 Anti-ds DNA IgG Ab 2 IU/mL 02/03/24 04:47 Thyroglobulin Antibody 17 IU/mL (< or = 1) H 02/03/24 04:47 Thyroid Peroxidase Ab 10 IU/mL (<9) H 02/03/24 04:47 Adenovirus (PCR) Not detected (NOT DETECT) 02/02/24 19:20 C. pneumoniae DNA (PCR) Not detected (NOT DETECT) 02/02/24 19:20 Coronavirus 229E (PCR) Not detected (NOT DETECT) 02/02/24 19:20 CMV Specimen Source *csf 02/03/24 16:15 CMV Culture Source Cancelled 02/03/24 16:15 CMV DNA Ql PCR Com Not detected (Not Detected) 02/03/24 16:15 CMV DNA Quant PCR Cancelled 02/03/24 16:15 CMV Qnt PCR Interp Cancelled 02/03/24 16:15 EBV Source Cancelled 02/03/24 16:15 EBV DNA Cancelled 02/03/24 16:15 EBV DNA (PCR) Cancelled 02/03/24 16:15 HIV 1&2 Ab & HIV 1 Ag Non-reactive (Non-Reactiv) 02/03/24 04:47 HIV 1&2 Antibody Non-reactive (Non-Reactiv) 02/03/24 04:47 Human Metapneumovir PCR Not detected (NOT DETECT) 02/02/24 19:20 Influenza A (H1) PCR Not detected (NOT DETECT) 02/02/24 19:20 Influ A (H1/09) PCR Not detected (NOT DETECT) 02/02/24 19:20 Influenza A (H3) PCR Not detected (NOT DETECT) 02/02/24 19:20 Influenza Type A (PCR) Not detected (NOT DETECT) 02/02/24 19:20 Influenza Type B (PCR) Not detected (NOT DETECT) 02/02/24 19:20 M. pneumoniae (PCR) Not detected (NOT DETECT) 02/02/24 19:20 Parainfluenza 1 (PCR) Not detected (NOT DETECT) 02/02/24 19:20 Parainfluenza 2 (PCR) Not detected (NOT DETECT) 02/02/24 19:20 Parainfluenza 3 (PCR) Not detected (NOT DETECT) 02/02/24 19:20 Parainfluenza 4 (PCR) Not detected (NOT DETECT) 02/02/24 19:20 RSV Type A (PCR) Not detected (NOT DETECT) 02/02/24 19:20 RSV Type B (PCR) Not detected (NOT DETECT) 02/02/24 19:20 Entero/Rhino (PCR) Not detected (NOT DETECT) 02/02/24 19:20 SARS-CoV-2 (PCR) Not detected (NOT DETECT) 02/02/24 19:20 Vitals Last Vital Signs Temp 98.7 F 02/09/24 07:51 Pulse 55 L 02/09/24 07:51 Resp 17 02/09/24 07:51 BP 118/69 02/09/24 07:51 Pulse Ox 98 02/09/24 07:51 O2 Del Method Room Air 02/09/24 07:51 FiO2 28 02/06/24 07:37 Discharge Plan Discharge Patient Disposition: Home Condition: Stable Prescriptions: New gabapentin 100 mg Capsule 100 mg PO TID 30 Days Qty: 90 0RF levothyroxine 200 mcg Tablet 200 mcg PO QAM Qty: 30 0RF prednisone 10 mg tablet See Taper PO DIRECTED Qty: 42 0RF Taper: predniSONE 60-10 60 mg Daily for 2 Days and 0 Hour 50 mg Daily for 2 Days and 0 Hour 40 mg Daily for 2 Days and 0 Hour 30 mg Daily for 2 Days and 0 Hour 20 mg Daily for 2 Days and 0 Hour 10 mg Daily for 2 Days and 0 Hour Rx Instructions: see taper instructions Continued dicyclomine 20 mg tablet 20 mg PO TID Discontinued gabapentin 300 mg capsule See Rx Instructions .ROUTE .COMPLEX Rx Instructions: TAKE 1 CAPSULE BY MOUTH ONCE DAILY AT BEDTIME THEN 1 THREE TIMES DAILY NEEDED FOR ANXIETY AND FOR PAIN. thyroid (pork) [AIR AND HYDRONIC BALANCING TECHNICIAN Thyroid] 15 mg tablet 15 mg PO DAILY Rx Instructions: along with 90mg [id number] total thyroid (pork) [AIR AND HYDRONIC BALANCING TECHNICIAN Thyroid] 90 mg tablet 90 mg PO DAILY Rx Instructions: along with 15mg [id number] total buprenorphine-naloxone 8-2 mg film 1 film buccal BID Discharge Orders: Discharge Order (Routine); Ordered 02/09/24 Ordered By: Goldy Alexander Referrals: [facility] [Other] - 02/19/24 9:00 am (gilma caraballo @ [facility]) Roque Jang MD [Physician] - 02/15/24 11:15 am () Discharge Diet: Regular Discharge Activity: Resume usual activity Patient Instructions: Opioid Safety Activity Restrictions/Additional Instructions: Please follow-up with endocrinology office as per the set appointment. Please make sure to follow-up with providers at set appointments. For now continue taking levothyroxine 200 mcg daily. Take steroid taper as prescribed. You should have a repeat thyroid profile done in next 1 week. You should have a repeat BMP done with your primary care provider within next 1 week on set appointment. You should follow-up with nephrology as an outpatient to monitor renal functions. Please avoid Suboxone. Please maintain hydration with up to 40 to 50 ounces of liquid daily. Discharge Attestations Time Spent in Discharge Care*: greater than 30 min Specific Discharge Activities: educating patient, educating and/or supporting family/caregiver, discussing with pcp/other providers, discussing with community case manager/social workers/dc planners, documenting/other paperwork and evaluating patient/reviewing data Status at Discharge: Cognitive status at discharge: cognitively intact, Behavioral status at discharge: cooperative, Functional status at discharge: independent ambulation, Overall status at discharge: patient is back to baseline Quality Metrics Clinical Quality Measures [ No reported AMI, CVA or VTE this stay] Coding Level of Care Code 18658 Total time (in minutes) for Discharge: 70 Diagnoses Acute kidney injury N17.9 Acute psychosis F23 Hallucination R44.3 Bradycardia associated with anesthesia Severe hypothyroidism E03.9 Kevin encephalopathy E06.3; G93.49
[2024-02-09 12:00] VITALS: BP 145/80; PULSE 72; RESP 18; TEMP 36.8; O2SAT 99
[2024-02-09 13:21] VITALS: BP 145/80; PULSE 72; RESP 18; TEMP 36.8; O2SAT 99
[2024-02-09 20:29] LABS: Lyme Disease AB (IGG),IBL NO BANDS DETECTED; Lyme Disease AB (IGM), IBL NO BANDS DETECTED
[2024-02-10] LABS: VDRL on CSF NON-REACTIVE
[2024-02-10 17:29] LABS: Thyroid Stimulating Immunoglob <89 % baseline (<140)
[2024-02-11 15:39] LABS: Oligoclonal Bands IGG, CSF ABSENT (ABSENT)
[2024-02-11 17:29] LABS: West Nile Virus AB (IGG) <1.30 index; West Nile Virus AB (IGM) <0.90 index
[2024-02-12 22:19] LABS: Thyroglobulin Level <0.8 ng/mL
== END 2024-02-09 13:23 | disposition home or self-care (01) | DRG 644 ==
LOC: ER 12:58 → NP 13:14 → ICU 16:38 → MEDSURG 02-08 14:55
PROVIDERS: Internal Medicine; Student in an Organized Health Care Education/Training Program; Admitting Provider Psychiatry & Neurology Psychiatry; Emergency Provider Family Medicine; Visit Provider Psychiatry & Neurology Psychiatry
DX: E03.9 Hypothyroidism, unspecified (principal); E87.0 Hyperosmolality and hypernatremia; N17.9 Acute kidney failure, unspecified; T38.1X6A Underdosing of thyroid hormones and substitutes, initial encounter; Z91.128 Patient's intentional underdosing of medication regimen for other reason; F12.90 Cannabis use, unspecified, uncomplicated; R00.1 Bradycardia, unspecified; T41.45XA Adverse effect of unspecified anesthetic, initial encounter; G47.00 Insomnia, unspecified
CPT/HCPCS: 36415; 36416; 36600; 51702; 70470; 71045; 73560; 74176; 76536; 80048; 80051; 80053; 80061; 80164; 80306; 80307; 80503; 81001; 82330; 82436; 82533; 82570; 82607; 82746; 82805; 82945; 82962; 83036; 83540; 83550; 83735; 83916; 84100; 84133; 84145; 84146; 84157; 84300; 84315; 84432; 84439; 84443; 84445; 84481; 84702; 85025; 85378; 85610; 85651; 85999; 86140; 86225; 86235; 86376; 86403; 86592; 86617; 86653; 86695; 86696; 86777; 86778; 86788; 86789; 86800; 87015; 87040; 87070; 87075; 87116; 87205; 87206; 87486; 87496; 87581; 87633; 87798; 87799; 87801; 87806; 89050; 92523; 92526; 92610; 93005; 93306; 94002; 94003; 94799; 96372; 96374; 96376; 99285; J0133; J0330; J0515; J0696; J1171; J1200; J1265; J1630; J1644; J1720; J1815; J1940; J2060; J2250; J2470; J2704; J3010; J3486; J3490; J7030; J7042; J7050; J7070; J7120; Q3014

== ENCOUNTER 2024-02-13 08:33 | Emergency (ER) | payer SELFPAY ==
[2024-02-13 09:04] VITALS: BP 131/73; PULSE 49; RESP 17; TEMP 36.9; O2SAT 100; BMI 24.7
[2024-02-13] MEDS: lidocaine 2% viscous 15 ML, aluminum-mag hydrox-simethicon 30 ML, sucralfate oral liq 1 GM PO (09:46)
[2024-02-13 09:49] LABS: Basophils % 0.2 %; Eosinophils # 0.1 10^3/uL (0.0-0.8); Eosinophils % 0.5 %; Hematocrit 31.9 % (36-47); Lymphocytes # 2.7 10^3/uL (0.8-4.8); Lymphocytes % 20.9 %; Mean Corpuscular HGB Conc 32.9 g/dL (30-55); Mean Corpuscular Hemoglobin 30.4 pg (27-33); Mean Corpuscular Volume 92.5 fl (85-98); Mean Platelet Volume 9.8 fL (7.4-10.4); Monocytes # 1.3 10^3/uL (0.2-0.9); Monocytes % 10.3 %; Neutrophils # 8.65 10^3/uL (1.8-7.7); Neutrophils % 67.2 %; Nucleated Red Blood Cells % 0 %; Platelet Count 322 10^3/cmm (157-399); Red Blood Count 3.45 10^6/uL (3.85-5.65); Red Cell Distribution Width 14.5 % (12.1-15.1); White Blood Count 12.87 10^3/uL (3.29-11.43)
[2024-02-13 10:05] LABS: Alanine Aminotransferase 444 U/L (0-33); Albumin Level 3.5 g/dL (3.5-5.2); Alkaline Phosphatase 77 U/L (35-105); Anion Gap 13.8 (5-19); Aspartate Amino Transferase 302 U/L (0-32); Blood Urea Nitrogen 20 mg/dL (6-20); Calcium 9.2 mg/dL (8.5-10.5); Carbon Dioxide 28 mmol/L (22-29); Chloride 103 mmol/L (98-107); Globulin 2.2 g/dL (1.3-4.6); Glucose 98 mg/dL (65-115); Lipase 65 U/L (13-60); Osmolality Calculated 295 mOsm/kg (285-295); Potassium 3.8 mmol/L (3.5-5.1); Sodium 141 mmol/L (136-145); Total Bilirubin 0.8 mg/dL (0.15-1.2); Total Protein 5.7 g/dL (6.6-8.7)
[2024-02-13 10:06] LABS: Bilirubin Urine Negative (Negative); Blood Urine Negative (Negative); Glucose Urine UA Negative (Normal); Ketones Urine Negative (Negative); Leukocyte Esterase Urine Negative (Negative); Nitrate Urine Negative (Negative); Protein Urine Negative (Negative); Specific Gravity, Urine 1.012 (1.005-1.030); Urine Appearance Clear (CLEAR); Urine Color Yellow (Yellow); Urobilinogen Urine 0.2 mg/dL (Negative)
[2024-02-13 10:11] LABS: Add Urine Microscopic? YES; Bacteria Urine None Seen /hpf; Hyaline Casts Urine 8.26 /lpf; RBC Urine 0-2 /hpf (0-2); Squamous Epithelial Cell Urine 0-5 /hpf (0-5); WBC Urine 0-5 /hpf (0-5)
[2024-02-13 10:27] LABS: Coarse Granular Casts Urine 0-4 /lpf
[2024-02-13 10:30] VITALS: BP 151/77; PULSE 44; RESP 12; O2SAT 100
--- NOTE | 2024-02-13 10:52 | PC.PHAR ---
Patient states she use to take subxone but isn't taking it now. She sttaes she still has some with her and is wondering if she could take it . Was told to talk to the Doctor .
[2024-02-13 11:00] VITALS: BP 161/84; PULSE 41; RESP 17; O2SAT 100
--- NOTE | 2024-02-13 11:11 | W.ED.ABDPA2 ---
HPI - Abdominal Pain General: Chief Complaint: Abdominal Pain Stated Complaint: Severe stomach cramps, n/v Time Seen by Provider: 02/13/24 09:05 History of Present Illness: 43-year-old female presents to the emergency room with complaints of abdominal pain. She relates it to reflux it is in the past she has been on Carafate which has worked very well for her she has a lot of burning in her stomach and reflux symptoms. No vomiting no diarrhea no medic easy melena hematemesis or coffee-ground emesis Associated Symptoms: Denies chills, dysuria and fever(s) Related Data Previous Rx's Medication Instructions Recorded gabapentin 100 mg capsule 100 mg PO TID 30 days #90 caps 02/09/24 levothyroxine 200 mcg tablet 200 mcg PO QAM #30 tabs 02/09/24 prednisone 10 mg tablet See Taper PO DIRECTED #42 tabs 02/09/24 pantoprazole 40 mg tablet,delayed 40 mg PO DAILY #30 tabs 02/13/24 release (Protonix) sucralfate 1 gram tablet (Carafate) 1 g PO Q6H 4 weeks #112 tabs 02/13/24 Allergies Allergy/AdvReac Type Severity Reaction Status Date / Time bee venom protein (honey bee) Allergy Mild ALGY-Rash Verified 02/12/24 13:26 Iodinated Contrast Media Allergy Mild ALGY-Rash Verified 02/12/24 13:26 Anesthetics - Amide Type - Allergy Unknown Verified 02/12/24 13:26 Select A codeine Allergy Unknown Verified 02/12/24 13:26 ketamine Allergy Unknown Verified 02/12/24 13:26 trazodone Allergy Unknown Verified 02/12/24 13:26 Review of Systems Const: Denies: fever(s) or chills Card: Denies: chest pain Resp: Denies: dyspnea GI: Denies: abdominal pain : Denies: dysuria, urinary frequency or urinary urgency Musc: Denies: neck pain or back pain Skin/Breast: Denies: rash PFSH ED PFSH: Medical History H/O radioactive iodine thyroid ablation Graves disease Hypothyroidism Surgical History No pertinent past surgical history Social History Smoking and tobacco/nicotine status: unknown if used tobacco/nicotine Alcohol intake: unknown Substance/Drug Use: never Household members: spouse Housing: House Marital status: Physical Exam Const: COMMON NORMALS: no acute distress GENERAL APPEARANCE: cooperative and comfortable ORIENTATION/CONSCIOUSNESS: Yes awake, Yes oriented to person, Yes oriented to place and Yes oriented to time HENMT: COMMON NORMALS: normocephalic, atraumatic and hearing grossly normal bilaterally HEAD & SCALP: normocephalic and atraumatic Resp: COMMON NORMALS: normal respiratory effort, No retractions, No use of accessory muscles and clear to auscultation bilaterally AUSCULTATION: clear to auscultation bilaterally Cardio: COMMON NORMALS: regular rate, regular rhythm and No murmurs present (Cardio) RATE: regular rate RHYTHM: regular rhythm GI: COMMON NORMALS: Soft to palpation and No hepatosplenomegaly present AUSCULTATION: Yes normoactive bowel sounds PALPATION: Yes Soft to palpation, No Tenderness to palpation present (GI), No Guarding due to palpation present (GI) and Yes No hepatosplenomegaly present Extremity: COMMON NORMALS: normal to inspection, capillary refill normal, no clubbing, cyanosis or edema, no calf tenderness and no pedal edema Neuro: SENSORIUM/ORIENTATION: Yes oriented to person, Yes oriented to place and Yes oriented to time Skin: COMMON NORMALS: no rashes or lesions noted GENERAL SKIN EXAM: no rashes or lesions noted Course Vital Signs: Vital signs: Vital Signs Temperature 98.5 F 02/13/24 09:04 Pulse Rate 42 L 02/13/24 12:03 Respiratory Rate 17 02/13/24 11:00 Blood Pressure 129/77 02/13/24 12:03 Pulse Oximetry 96 02/13/24 12:03 Oxygen Delivery Me thod Room Air 02/13/24 09:04 MDM - Abdominal Pain Medical Decision Making Improved after GI cocktail. Discharge patient home started Protonix 40 twice daily for 10 days and 40 daily use Carafate every 6 hours as needed. Recommendations for diet follow-up with primary care Medical Records I reviewed the patient's medical records. Lab Data I reviewed the patient's lab results. 02/13/24 09:39 02/13/24 09:39 Labs/Radiology: Laboratory Results WBC 12.87 10^3/uL (3.29-11.43) H 02/13/24 09:39 RBC 3.45 10^6/uL (3.85-5.65) L 02/13/24 09:39 Hgb 10.50 g/dL (11.27-16.99) L 02/13/24 09:39 Hct 31.9 % (36-47) L 02/13/24 09:39 MCV 92.5 fl (85-98) 02/13/24 09:39 MCH 30.4 pg (27-33) 02/13/24 09:39 MCHC 32.9 g/dL (30-55) 02/13/24 09:39 RDW 14.5 % (12.1-15.1) 02/13/24 09:39 Plt Count 322 10^3/cmm (157-399) 02/13/24 09:39 MPV 9.8 fL (7.4-10.4) 02/13/24 09:39 Neut % (Auto) 67.2 % 02/13/24 09:39 Lymph % (Auto) 20.9 % 02/13/24 09:39 [place] % (Auto) 10.3 % 02/13/24 09:39 Eos % (Auto) 0.5 % 02/13/24 09:39 Baso % (Auto) 0.2 % 02/13/24 09:39 Neut # (Auto) 8.65 10^3/uL (1.8-7.7) H 02/13/24 09:39 Lymph # (Auto) 2.7 10^3/uL (0.8-4.8) 02/13/24 09:39 [place] # (Auto) 1.3 10^3/uL (0.2-0.9) H 02/13/24 09:39 Eos # (Auto) 0.1 10^3/uL (0.0-0.8) 02/13/24 09:39 Baso # (Auto) 0.0 10^3/uL (0.0-0.1) 02/13/24 09:39 Nucleated RBC % (auto) 0 % 02/13/24 09:39 Nucleated RBCs # 0.0 /100WBC 02/13/24 09:39 Sodium 141 mmol/L (136-145) 02/13/24 09:39 Potassium 3.8 mmol/L (3.5-5.1) 02/13/24 09:39 Chloride 103 mmol/L (98-107) 02/13/24 09:39 Carbon Dioxide 28 mmol/L (22-29) 02/13/24 09:39 Anion Gap 13.8 (5-19) 02/13/24 09:39 BUN 20 mg/dL (6-20) 02/13/24 09:39 Creatinine 1.0 mg/dL (0.5-0.9) H 02/13/24 09:39 GFR Calculation 60.0 mL/min (90-130) L 02/13/24 09:39 Glucose 98 mg/dL (65-115) 02/13/24 09:39 Calculated Osmolality 295 mOsm/kg (285-295) 02/13/24 09:39 Calcium 9.2 mg/dL (8.5-10.5) 02/13/24 09:39 Total Bilirubin 0.8 mg/dL (0.15-1.2) 02/13/24 09:39 AST 302 U/L (0-32) H 02/13/24 09:39 ALT 444 U/L (0-33) H 02/13/24 09:39 Alkaline Phosphatase 77 U/L (35-105) 02/13/24 09:39 Total Protein 5.7 g/dL (6.6-8.7) L 02/13/24 09:39 Albumin 3.5 g/dL (3.5-5.2) 02/13/24 09:39 Globulin 2.2 g/dL (1.3-4.6) 02/13/24 09:39 Lipase 65 U/L (13-60) H 02/13/24 09:39 Urine Color Yellow (Yellow) 02/13/24 09:55 Urine Appearance Clear (CLEAR) 02/13/24 09:55 Urine pH 7.0 (5-7) 02/13/24 09:55 Ur Specific [place] 1.012 (1.005-1.030) 02/13/24 09:55 Urine Protein Negative (Negative) 02/13/24 09:55 Urine Glucose (UA) Negative (Normal) 02/13/24 09:55 Urine Ketones Negative (Negative) 02/13/24 09:55 Urine Blood Negative (Negative) 02/13/24 09:55 Urine Nitrate Negative (Negative) 02/13/24 09:55 Urine Bilirubin Negative (Negative) 02/13/24 09:55 Urine Urobilinogen 0.2 mg/dL (Negative) 02/13/24 09:55 Ur Leukocyte Esterase Negative (Negative) 02/13/24 09:55 Urine RBC 0-2 /hpf (0-2) 02/13/24 09:55 Urine WBC 0-5 /hpf (0-5) 02/13/24 09:55 Ur Squamous Epith Cells 0-5 /hpf (0-5) 02/13/24 09:55 Amorphous Sediment Not Reportable 02/13/24 09:55 Urine Bacteria None seen /hpf (NONE) 02/13/24 09:55 Hyaline Casts 8.26 /lpf 02/13/24 09:55 Coarse Granular Casts 0-4 /lpf H 02/13/24 09:55 No radiology studies performed this visit Discharge Plan Discharge Patient Disposition: Home Clinical Impression: GERD (gastroesophageal reflux disease) Condition: Stable Prescriptions: New pantoprazole [Protonix] 40 mg tablet,delayed release (DR/EC) 40 mg PO DAILY Qty: 30 0RF sucralfate [Carafate] 1 gram tablet 1 g PO Q6H 28 Days Qty: 112 0RF No Action levothyroxine 200 mcg Tablet 200 mcg PO QAM Qty: 30 0RF gabapentin 100 mg Capsule 100 mg PO TID 30 Days Qty: 90 0RF prednisone 10 mg tablet See Taper PO DIRECTED Qty: 42 0RF Taper: predniSONE 60-10 60 mg Daily for 2 Days and 0 Hour 50 mg Daily for 2 Days and 0 Hour 40 mg Daily for 2 Days and 0 Hour 30 mg Daily for 2 Days and 0 Hour 20 mg Daily for 2 Days and 0 Hour 10 mg Daily for 2 Days and 0 Hour Rx Instructions: see taper instructions Discharge Orders: Discharge ED (Routine); Ordered 02/13/24 Ordered By: Daniel Iglesias Discharge Diet: As Directed Patient Instructions: Diet for Stomach Ulcers and Gastritis (ED), GERD (Gastroesophageal Reflux Disease) (ED), Opioid Safety, Pain Management Activity Restrictions/Additional Instructions: Thank you for choosing [facility] for your healthcare needs today. It is very important that you follow up as instructed or that you return to the Emergency Department should you have concerns or if your condition changes or worsens in any way. Coding Level of Care Code ED [employer] for Ladi Bhatt
[2024-02-13 12:03] VITALS: BP 129/77; PULSE 42; O2SAT 96
== END 2024-02-13 12:05 | disposition home or self-care (01) ==
PROVIDERS: Emergency Provider Family Medicine
DX: K21.9 Gastro-esophageal reflux disease without esophagitis (principal)
CPT/HCPCS: 80053; 81001; 83690; 85025; 99283